=== PATIENT | female | born 1950 | race Caucasian/White ===

== ENCOUNTER 2022-07-03 15:05 | Outpatient (REF) | payer MEDICARE, SELFPAY ==
[2022-07-03 17:05] LABS: Free T4 (Free Thyroxine) 1.02 ng/dL (0.71-1.85); TSH reflex Free T4 0.89 uIU/mL (0.32-4.0)
[2022-07-05 09:49] LABS: Thyroid Peroxidase Antibodies <1 IU/mL (<9)
== END 2022-07-03 15:06 | disposition home or self-care (01) ==
LOC: HO.LAB 15:05
PROVIDERS: PCP Internal Medicine; Visit Provider Nurse Practitioner
DX: K59.04 Chronic idiopathic constipation (principal); E89.0 Postprocedural hypothyroidism; R60.0 Localized edema
CPT/HCPCS: 36415; 84439; 84443; 86376; 99202

== ENCOUNTER → 2022-08-02 13:43 | Outpatient (BNVA) | payer MEDICARE, SELFPAY | PROVIDERS: PCP Internal Medicine; Visit Provider Nurse Practitioner | DX: K59.04 Chronic idiopathic constipation (principal); K59.9 Functional intestinal disorder, unspecified; K21.9 Gastro-esophageal reflux disease without esophagitis | CPT/HCPCS: 99212 ==

== ENCOUNTER 2022-08-30 14:03 | Outpatient (REF) | payer MEDICARE, SELFPAY ==
[2022-08-30 15:51] LABS: Appearance Urine Clear; Color Urine Yellow; Glucose Urine UA Negative (Negative); Leukocyte Esterase Urine Negative (Negative); Nitrite Urine Negative (Negative); PH 5.5 (5.0-9.0); Specific Gravity - Urine 1.015 (1.005-1.025); Urine Blood Negative (Negative); Urine Ketones Negative (Negative); Urine Protein Negative (Neg-Trace)
== END 2022-08-30 14:04 | disposition home or self-care (01) ==
LOC: HO.LAB 14:03
PROVIDERS: PCP Internal Medicine; Referring Provider Internal Medicine; Visit Provider Nurse Practitioner
DX: K59.9 Functional intestinal disorder, unspecified (principal); K59.04 Chronic idiopathic constipation; K29.60 Other gastritis without bleeding; K21.9 Gastro-esophageal reflux disease without esophagitis; R35.0 Frequency of micturition
CPT/HCPCS: 81003; 99212

== ENCOUNTER 2022-09-13 09:49 | Outpatient (REF) | payer MEDICARE, SELFPAY ==
--- NOTE | ~2022-09-13 | FL_ITS ---
EXAMINATION: FL BARIUM SWALLOW CLINICAL INFORMATION: Chronic idiopathic constipation. Rule out abnormal peristalsis. COMPARISON: None TECHNIQUE: Barium swallow examination is performed using fluoroscopic evaluation in addition to multiple fluoroscopic spot views. The patient is imaged both upright and prone and using both thick and thin sulfate along with effervescent granules. Barium tablet was also administered. Fluoroscopy time: 0.8 minutes DAP: 5.9 Gycm2 Images: 54 FINDINGS: The swallowing mechanism is normal. No aspiration or penetration. There is deviation of the cervical esophagus in the neck to the left. This may be related to an enlarged thyroid gland. This esophageal motility is normal. There is a small sliding-type hiatal hernia. There is significant gastroesophageal reflux. No mass or stricture is seen. Barium tablet passed freely into the stomach. There are surgical clips in the left neck. FL/FL barium swallow IMPRESSION: Normal esophageal motility. Significant gastroesophageal reflux and small sliding-type hiatal hernia. The cervical esophagus is deviated to the left. This may be related to an enlarged thyroid gland. Clinical correlation recommended. This could be better evaluated with thyroid ultrasound.
== END 2022-09-13 09:50 | disposition home or self-care (01) ==
LOC: HO.XRAY 09:49
PROVIDERS: PCP Internal Medicine; Visit Provider Nurse Practitioner
DX: K59.04 Chronic idiopathic constipation (principal)
CPT/HCPCS: 74220

== ENCOUNTER → 2022-10-11 13:19 | Outpatient (BNVA) | payer MEDICARE, SELFPAY | PROVIDERS: PCP Internal Medicine; Visit Provider Nurse Practitioner | DX: K59.9 Functional intestinal disorder, unspecified (principal); K21.9 Gastro-esophageal reflux disease without esophagitis; R35.0 Frequency of micturition | CPT/HCPCS: 99212 ==

== ENCOUNTER → 2022-11-21 13:29 | Outpatient (BNVA) | payer MEDICARE, SELFPAY | PROVIDERS: PCP Internal Medicine; Visit Provider Nurse Practitioner | DX: K21.9 Gastro-esophageal reflux disease without esophagitis (principal); K59.04 Chronic idiopathic constipation; K59.9 Functional intestinal disorder, unspecified; N32.81 Overactive bladder; Z79.899 Other long term (current) drug therapy | CPT/HCPCS: 99212 ==

== ENCOUNTER → 2022-12-13 13:52 | Outpatient (BNVA) | payer MEDICARE, SELFPAY | PROVIDERS: PCP Internal Medicine; Visit Provider Nurse Practitioner | DX: K59.04 Chronic idiopathic constipation (principal); K21.9 Gastro-esophageal reflux disease without esophagitis; K29.60 Other gastritis without bleeding; K59.9 Functional intestinal disorder, unspecified | CPT/HCPCS: 99212 ==

== ENCOUNTER 2022-12-19 14:06 | Outpatient (REF) | payer MEDICARE, SELFPAY ==
--- NOTE | ~2022-12-19 | XR_ITS ---
EXAMINATION: XR ABDOMEN WITH DECUBITUS VIEWS CLINICAL INDICATION: Chronic idiopathic constipation COMPARISON: None available. TECHNIQUE: AP view of the chest, upright and supine AP views of the abdomen and pelvis FINDINGS: Chest x-ray demonstrates normal cardiomediastinal silhouette. Lung parenchyma is clear The bowel gas pattern is normal with no evidence of ileus or obstruction. No unusual soft tissue calcifications are noted. Status post left hip total arthroplasty XR/XR abdomen w decubitus IMPRESSION: Unremarkable examination.
== END 2022-12-19 14:07 | disposition home or self-care (01) ==
LOC: HO.XRAY 14:06
PROVIDERS: PCP Internal Medicine; Referring Provider Internal Medicine; Visit Provider Nurse Practitioner
DX: K59.04 Chronic idiopathic constipation (principal)
CPT/HCPCS: 74021; 99212

== ENCOUNTER → 2023-01-02 15:05 | Outpatient (BNVA) | payer MEDICARE, SELFPAY | PROVIDERS: PCP Internal Medicine; Visit Provider Nurse Practitioner | DX: K59.04 Chronic idiopathic constipation (principal); K21.9 Gastro-esophageal reflux disease without esophagitis; K29.60 Other gastritis without bleeding | CPT/HCPCS: 99212 ==

== ENCOUNTER → 2023-01-08 13:58 | Outpatient (BNVA) | payer MEDICARE, SELFPAY | PROVIDERS: PCP Internal Medicine; Visit Provider Orthopaedic Surgery ==

== ENCOUNTER → 2023-01-15 13:00 | Outpatient (BNVA) | payer MEDICARE, SELFPAY | PROVIDERS: PCP Internal Medicine; Visit Provider Orthopaedic Surgery | DX: M17.0 Bilateral primary osteoarthritis of knee (principal) | CPT/HCPCS: 20610; J7318 ==

== ENCOUNTER → 2023-01-17 13:04 | Outpatient (BNVA) | payer MEDICARE, SELFPAY | PROVIDERS: PCP Internal Medicine; Visit Provider Nurse Practitioner | DX: K59.04 Chronic idiopathic constipation (principal); K21.9 Gastro-esophageal reflux disease without esophagitis; K29.60 Other gastritis without bleeding | CPT/HCPCS: 99212 ==

== ENCOUNTER 2023-02-26 14:36 | Outpatient (AMB) | payer MEDICARE, SELFPAY ==
--- NOTE | 2023-02-26 14:47 | MHC.OFFVIS ---
Intake Vital Signs 02/26/23 15:13 Height 5 ft 6.5 in BP 127/70 Blood Pressure Location Rt brachial Position Sitting Pulse 77 Intake Visit Reasons: 3 week fu Intake Note: Patient returns to clinic today in follow up of constipation. CC: Patient reports the medication takes some work for her bowels to start moving and her hemorrhoids are starting to bleed. Pt states she would like to know if something can be added to help with her BMs. [employer] Operator Required: No Accompanied by: Self / Same As Patient Allergies cephalexin [From Keflex] Allergy (Verified 01/17/23 13:42) Rash bisacodyl [From Dulcolax (bisacodyl)] Adverse Reaction (Intermediate, Verified 01/17/23 13:42) Nausea HPI 3 week fu HPI Details Assessment & Plan (1) Chronic idiopathic constipation: ?Code(s): K59.04 - Chronic idiopathic constipation ?Plan: She is now moving her bowels, although not one and done as I would like. At times she even has looser stools. Xr not concerning I try to allay her fears that she will end up with a bad or will stretch her colon as there is absolutely no evidence that this is the case.? I really believe that this is a more of what she calls and obsessive-compulsive relief than rooted in fax.? She finds her belching is improved on reglan fortino overnight. We discuss possible future trial of LInzess starting low and increasing per her request, but she has a lot of atypical reactions, so I don't want to change now. She is taking the Amitiza 24mcg bid and senna 2 qhs and 1 qam. She has cut back her fiber a bit, and thats fine as this has improved her eczema.? She also continues on Colace and omeprazole 20 mg daily. ROV 3 weeks. (2) GERD (gastroesophageal reflux disease): ?Code(s): K21.9 - Gastro-esophageal reflux disease without esophagitis (3) Erosive gastritis: ?Code(s): K29.60 - Other gastritis without bleeding TODAY'S VISIT She is moving her bowels, but it is still hard to stimulate the BM to start and she still feels incomplete evacuation. Her hemorrhoids are starting to bleed and bother her, but she feels this is r/t her rubbing the anus to stimulate it and not hard stools. I think we will continue what we are doing and add bisacodyl supps (she had nausea r/t the pills, this will bypass this) and see if we can do better. She will take it after supper so that she can go to am [facility]. She is taking the Amitiza 24mcg bid and senna 2 qhs and 1 qam. She has cut back her fiber a bit, and thats fine as this has improved her eczema.? She also continues on Colace and omeprazole 20 mg daily. ROV 3 weeks. COUNT INCLUDES THE [facility] Surgical History H/O colonoscopy H/O esophagogastroduodenoscopy H/O partial thyroidectomy History of left hip replacement History of surgical removal of meniscus of knee Social History Alcohol intake: never Patient Tobacco Use Status: Never used Tobacco Current occupational status: retired Review of Systems Const Denies fatigue, Denies fever(s), Denies night sweats, Denies poor appetite and Denies weight loss ENT Reports Normal hearing present, Denies dental pain, Denies dysphagia, Denies hearing loss, Denies mouth pain, Denies odynophagia, Denies throat swelling, Denies tongue swelling and Reports other (Dentition adequate) Card Reports no additional complaints Resp Reports no additional complaints GI Denies abdominal pain, Denies melena, Denies bloating, Reports hematochezia, Reports constipation, Denies GI cramping, Denies dysphagia, Denies excessive flatus, Denies early satiety, Reports heartburn, Denies diarrhea, Denies nausea, Denies odynophagia, Denies vomiting and Denies hematemesis Skin/Breast Denies pruritus, Denies lesions, Denies rash and Denies jaundice Neuro Reports Normal hearing present and Denies Abnormal speech present Endo Denies fatigue Aller/Immun Denies throat swelling and Denies tongue swelling Physical Exam Vital Signs: Last Vital Signs Pulse 77 02/26/23 15:13 BP 127/70 02/26/23 15:13 Const General: cooperative, no acute distress, well developed and well groomed Nutritional Appearance: well nourished and overweight Orientation/consciousness: oriented to person, oriented to place and oriented to time Limitations: No language barrier HEENT Head: Yes normocephalic and Yes atraumatic Eyes General: appearance normal, both eyes and all related structures Pupils: Equal, round and reactive pupils present Neck Neck: Yes normal visual inspection and Yes no lymphadenopathy Thyroid: Thyroid normal Resp Effort & Inspection: normal respiratory effort and able to speak in complete sentences Auscultation: clear to auscultation bilaterally Cardio Rate: regular rate Rhythm: regular rhythm Heart sounds: Normal, physiologic split S2 sound present Peripheral pulses: radial pulses present and posterior tibial pulses present GI Inspection: No distended and No Abdominal panniculus present Palpation (GI): Soft to palpation, nontender, no guarding, not rigid and No hepatosplenomegaly present Percussion: Yes normal to percussion Auscultation: normal bowel sounds Rectal Exam - Female: deferred Skin General skin exam: no rashes or lesions noted, turgor normal, skin not dry, no jaundice, No spider nevi and no striae Rashes: no rashes Nails: normal Neuro General: oriented to person, oriented to place and oriented to time Cranial nerves: Yes Equal, round and reactive pupils present and Yes Normal hearing present Speech: No Abnormal speech present Extrem General: Yes normal to inspection, No clubbing, No cyanosis and No edema Psych Appearance: grossly normal and well kempt Mental Status: mental status grossly normal Speech and movement: Normal speech and movement present Affect: normal affect Attitude: cooperative Thought process: Normal thought process present and not confabulating Thought content: Normal thought content present Insight: Limited insight present (Psych) Judgement: Limited judgement present (Psych) Assessment & Plan Assessment & Plan (1) Chronic idiopathic constipation: Code(s): K59.04 - Chronic idiopathic constipation Plan: She is moving her bowels, but it is still hard to stimulate the BM to start and she still feels incomplete evacuation. Her hemorrhoids are starting to bleed and bother her, but she feels this is r/t her rubbing the anus to stimulate it and not hard stools. I think we will continue what we are doing and add bisacodyl supps (she had nausea r/t the pills, this will bypass this) and see if we can do better. She will take it after supper so that she can go to am [place]. She is taking the Amitiza 24mcg bid and senna 2 qhs and 1 qam. She has cut back her fiber a bit, and thats fine as this has improved her eczema.? She also continues on Colace and omeprazole 20 mg daily. ROV 3 weeks. (2) Small bowel motility disorder: Code(s): K59.9 - Functional intestinal disorder, unspecified (3) GERD (gastroesophageal reflux disease): Code(s): K21.9 - Gastro-esophageal reflux disease without esophagitis Medications: New bisacodyl 10 mg [place] DAILY 100 ea 3RF 30 days K59.04 - Chronic idiopathic constipation, K59.9 - Functional intestinal disorder, unspecified Coding Level of Care Code Est Pt Level 3 (36187) Diagnoses Chronic idiopathic constipation K59.04 Small bowel motility disorder K59.9 GERD (gastroesophageal reflux disease) K21.9
[2023-02-26 15:13] VITALS: BP 127/70; PULSE 77
== END 2023-02-26 15:59 | disposition home or self-care (01) ==
PROVIDERS: PCP Internal Medicine; Visit Provider Nurse Practitioner
DX: K59.04 Chronic idiopathic constipation (principal); K59.9 Functional intestinal disorder, unspecified; K21.9 Gastro-esophageal reflux disease without esophagitis
CPT/HCPCS: 99213

== ENCOUNTER → 2023-02-26 14:36 | Outpatient (BNVA) | payer MEDICARE, SELFPAY | PROVIDERS: PCP Internal Medicine; Visit Provider Nurse Practitioner | DX: K59.04 Chronic idiopathic constipation (principal); K59.9 Functional intestinal disorder, unspecified; K21.9 Gastro-esophageal reflux disease without esophagitis | CPT/HCPCS: 99212 ==

== ENCOUNTER 2023-03-02 12:04 | Emergency (ER) | payer MEDICARE, SELFPAY ==
--- NOTE | ~2023-03-02 | XR_ITS ---
EXAMINATION: XR ABDOMEN COMPLETE CLINICAL INDICATION: Rule out obstruction COMPARISON: Previous x-ray November 2022 TECHNIQUE: 2 views of the abdomen. FINDINGS: Nonspecific bowel gas pattern with air-fluid levels in nondilated bowel. This probably represents an ileus. No evidence of free air. No calcifications. Degenerative changes of the lower lumbar spine and right hip joint. Left hip replacement. XR/XR abdomen min 2V IMPRESSION: Nonspecific bowel gas pattern with air-fluid levels in nondilated bowel. This probably represents an ileus.
--- NOTE | 2023-03-02 12:35 | ED_ITS ---
HPI - General Adult General Chief complaint: General Medical Stated complaint: sent from a Dr ? Time Seen by Provider: 03/02/23 14:02 Source: patient and old records reviewed Mode of arrival: ambulatory Limitations: no limitations History of Present Illness HPI narrative: 73 yo female with history of GERD, gastritis, chronic constipation, small bowel motility disorder, hypothyroidism, HLD and anxiety who presents to the ER for administration of an enema along with a KUB due to 2 months of ongoing constipation issues. Dr. Caraballo referred patient to the ER. She has been on senna, dulcolax, reglan, Amitiza. She is having bowel movements but they are small and she does not feel like they are complete. She is supposed to start a GoLytely prep to clear out the colon per GI recs. She was told to be NPO for this so has not eaten in 2 days. She denies any vomiting, fever, chills, urinary symptoms MD complaint: constipation Onset (ago): month(s) Location: abdomen Radiation: non-radiation Quality: aching Pain Consistency: intermittent Relieving factors: none Exacerbating factors: none Associated symptoms: denies other symptoms Treatments prior to arrival: none Related Data Home Medications Medication Instructions Recorded Confirmed venlafaxine 150 mg 150 mg PO DAILY 07/03/22 01/15/23 capsule,extended release 24 hr clonazepam 0.5 mg tablet 0.5 mg PO BID PRN 08/02/22 01/15/23 oxybutynin chloride 5 mg 5 mg PO DAILY PRN 01/17/23 tablet,extended release 24 hr (Ditropan XL) Previous Rx's Medication Instructions Recorded omeprazole 20 mg capsule,delayed 20 mg PO DAILY #30 caps 10/11/22 release docusate sodium 100 mg capsule 100 mg PO .DAILY WITH FOOD 30 days 10/12/22 (Colace) #30 caps lubiprostone 24 mcg capsule 24 mcg PO BID 30 days #60 caps 12/19/22 (Amitiza) metoclopramide HCl 10 mg tablet 10 mg PO QIDACHS #120 tabs 12/19/22 (Reglan) sennosides 8.6 mg tablet (Senna 17.2 mg PO BID 30 days #120 tabs 01/02/23 Laxative) bisacodyl 10 mg rectal suppository 10 mg TN DAILY 30 days #100 ea 02/26/23 bisacodyl 5 mg tablet,delayed 10 mg PO ONCE 2 days #4 tabs 03/02/23 release (Dulcolax (bisacodyl)) lactulose 10 gram/15 mL oral 20 g (30 mL) PO BID PRN 03/02/23 solution constipation #237 mL polyethylene glycol 3350 17 17 g PO DAILY 1 day #238 grams 03/02/23 gram/dose oral powder (Miralax) Allergies Allergy/AdvReac Type Severity Reaction Status Date / Time cephalexin [From Keflex] Allergy Rash Verified 03/02/23 12:36 doxycycline Allergy Unknown Verified 03/02/23 12:41 levofloxacin [From Levaquin] Allergy Unknown Verified 03/02/23 12:41 bisacodyl AdvReac Intermediate Nausea Verified 03/02/23 12:36 [From Dulcolax (bisacodyl)] Review of Systems Review of Systems: Yes all other systems are reviewed and are negative REPLACED BY [facility] Past Medical History Surgical History H/O colonoscopy H/O esophagogastroduodenoscopy H/O partial thyroidectomy History of left hip replacement History of surgical removal of meniscus of knee Social History Social History Alcohol intake: never Patient Tobacco Use Status: Never used Tobacco Smoked in Last 30 Days: No Use of substances other than those prescribed or required for medical reasons: No Advance Directives: No Advance Directives Information Provided: Yes Current occupational status: retired Physical Exam ED Vital Signs: Vital Signs - 24 hr 03/02/23 12:36 03/02/23 16:19 Temperature 98.6 F 99.0 F Pulse Rate 92 86 Respiratory Rate 16 Blood Pressure 127/79 143/79 H Pulse Oximetry 96 97 Oxygen Delivery Method Room Air Room Air BMI result Body Mass Index 28.2 Appearance: Alert. Oriented X3. No acute distress. Head: normocephalic, atraumatic. Eyes: Pupils equal, round and reactive to light. ENT: Pharynx normal. No tonsillar swelling or exudate. Neck: Normal inspection. Neck supple. CVS: Normal heart rate and rhythm. Pulses normal. Respiratory: No respiratory distress. Breath sounds normal. Abdomen: Soft and nontender. +BS x4 Skin: Skin warm and dry. Normal skin color. Normal skin turgor. No rashes. Extremities: No lower extremity edema. No joint swelling. Neuro/psych: Oriented X 3. No motor deficit. No sensory deficit. CN II-XII intact. Normal speech and cognition. Course Course Course Narrative: 73 year old female presents for evaluation of constipation. Patient reports a history of constipation. She reports feeling constipated for the last 2 months. She was able to have a very small bowel movement in the waiting room but reports that it was ?all water. ? Her primary doctor, Dr. Caraballo called and recommended ?a three view abdominal series x-ray to rule out obstruction, Fleet enema and large volume tap water enema. Patient is well-appearing. Plan to start with x-ray Medications Administered Discontinued Medications Generic Name Dose Route Start Last Admin Trade Name Freq PRN Reason Stop Dose Admin Polyethylene Glycol 17 gm 03/02/23 14:02 03/02/23 14:15 Polyethylene Glycol 3350 17 Gm Powd.Pack PO 03/02/23 14:03 17 gm ONCE ONE Administration Sodium Biphosphate/Sodium Phosphate 133 ml 03/02/23 14:02 03/02/23 14:15 Sodium Phosphate,Hoke-Dibasic 133 Ml Enema TN 03/02/23 14:03 133 ml ONCE ONE Administration Medical Decision Making Medical Decision Making MDM Narrative: 73 yo female with history of GERD, gastritis, chronic constipation, small bowel motility disorder, hypothyroidism, HLD and anxiety who presents to the ER for administration of an enema along with a KUB due to 2 months of ongoing constipation issues. Abd soft, nontender with normal active bowel sounds. KUB today with nonspecific bowel gas pattern w/ air fluid levels in nondilated bowel. possible ileus. Patient was given fleet and soap suds enema with good effect. No N/V abdominal pain or distention. stable to go home w/ plan for golyetly PRN and f/u with GI Differential Diagnosis Differential Diagnoses: The differential diagnosis associated with the presentation includes acute on chronic constipation, obstipation, ileus, [place], doubt SBO Admission/Observation Consideration of admission/observation: Escalation of care including admission/observation considered 73 yo female presenting with ileus, considered admission but she is moving her bowels. Independent Interpretation I performed an independent interpretation of an: Plain X-Ray Interpretation: air fluid levels apprecaited, no dilatation, agree w/ radiology read Radiology Impression Discussion of test interpretation with radiology: I have reviewed the radiologist's reading. Radiologist Impression: CLINICAL INDICATION: Rule out obstruction COMPARISON: Previous x-ray November 2022 TECHNIQUE: 2 views of the abdomen. FINDINGS: Nonspecific bowel gas pattern with air-fluid levels in nondilated bowel. This probably represents an ileus. No evidence of free air. No calcifications. Degenerative changes of the lower lumbar spine and right hip joint. Left hip replacement. XR/XR abdomen min 2V IMPRESSION: Nonspecific bowel gas pattern with air-fluid levels in nondilated bowel. This probably represents an ileus. External Record Review External record reviewed: Office record, Outpatient record, Prior outpatient labs and Prior outpatient radiology Tests considered The following testing was considered but not selected: CT scan considered but clinically not SBO Prescription Management I considered prescription management with: Other (laxatives) Chronic Conditions Patient?s care impacted by: Other (constipation, anxiety) Critical Care Time Critical Care Time Critical Care Time: No Discharge Plan Discharge Clinical Impression: Chronic constipation Patient Disposition: Home, Self-Care Instructions: Constipation (DC) Additional Instructions: your abdominal x-ray was unremarkable take the prescribed laxative as needed continue your previous laxative regimen follow up with your GI doctor If you develop new or worsening symptoms call 911 or come back to the ER for further evaluation. Prescriptions: New lactulose 10 gram/15 mL solution 20 g PO BID PRN (Reason: constipation) Qty: 237 0RF No Action docusate sodium [Colace] 100 mg capsule 100 mg PO .DAILY WITH FOOD 30 Days Qty: 30 6RF sennosides [Senna Laxative] 8.6 mg tablet 17.2 mg PO BID 30 Days Qty: 120 6RF bisacodyl [Dulcolax (bisacodyl)] 5 mg tablet,delayed release (DR/EC) 10 mg PO ONCE 2 Days Qty: 4 0RF Rx Instructions: Take 2 tablets at 10 am for severe constipation polyethylene glycol 3350 [Miralax] 17 gram/dose powder 17 g PO DAILY 1 Days Qty: 238 0RF Rx Instructions: Mix Miralax with 64 oz(8 cups) of Crystal light. Take 2 tablets of Dulcolax qt 10 am. Start drinking Miralax at 12 pm. Drink a glass of Miralax every 20 to 30 minutes until you are finished. You will drink at least another 4 cups of clear liquid of your choice over the next 2 hours. Please drink as many clear liquids as possible venlafaxine 150 mg capsule,extended release 24hr 150 mg PO DAILY clonazepam 0.5 mg tablet 0.5 mg PO BID PRN omeprazole 20 mg capsule,delayed release(DR/EC) 20 mg PO DAILY Qty: 30 6RF lubiprostone [Amitiza] 24 mcg capsule 24 mcg PO BID 30 Days Qty: 60 3RF Rx Instructions: please do a full 30 day fill metoclopramide HCl [Reglan] 10 mg tablet 10 mg PO QIDACHS Qty: 120 6RF oxybutynin chloride [Ditropan XL] 5 mg tablet extended release 24hr 5 mg PO DAILY PRN bisacodyl 10 mg suppository 10 mg TN DAILY 30 Days Qty: 100 3RF [place]: [facility] [place] Group] Interventions: ED Discharge Assessment Last Done: 03/02/23 16:04 Discharge Date/Time: 03/02/23 16:19
[2023-03-02 12:36] VITALS: BP 127/79; PULSE 92; RESP 16; TEMP 37; O2SAT 96; BMI 28.2
[2023-03-02] MEDS: Sodium Phosphate,Mono-Dibasic 133 ML ENEMA PR (14:15)
[2023-03-02] MEDS: polyethylene glycoL 3350 17 GM POWD.PACK PO (14:15)
--- NOTE | 2023-03-02 15:46 | PC.NURSE ---
pt given enemas by Geraldine ASHLEY/tuan RN together in room. s/p enemas pt have liquid brown TARUN Valdes notified. pt denied cramping or abdominal pain. no distress. calm, cooperative. OOB to bedside commode
[2023-03-02 16:19] VITALS: BP 143/79; PULSE 86; TEMP 37.2; O2SAT 97
== END 2023-03-02 16:19 | disposition home or self-care (01) ==
PROVIDERS: Emergency Provider Emergency Medicine Emergency Medical Services
DX: K59.09 Other constipation (principal); E03.9 Hypothyroidism, unspecified; E78.5 Hyperlipidemia, unspecified; Z79.899 Other long term (current) drug therapy
CPT/HCPCS: 74019; 99283; 99284

== ENCOUNTER 2023-03-13 14:00 | Outpatient (AMB) | payer MEDICARE, SELFPAY ==
[2023-03-13 14:22] VITALS: BP 119/65; PULSE 86; O2SAT 95; BMI 27.5
--- NOTE | 2023-03-13 14:22 | A.OFFVIS_ITS ---
Intake Vital Signs 03/13/23 14:22 Height 5 ft 6 in Weight 170 lb 10.205 oz BMI 27.5 BP 119/65 Blood Pressure Location Lt brachial Position Sitting Pulse 86 Pulse Source Pulse Oximeter Pulse Oximetry (%) 95 Oxygen Delivery Method Room Air Intake Visit Reasons: Constipation follow up Intake Note: Pt presents to the office today for a constipation follow up. Pt states her friend said to do magnesium salt feet soaks and it is helping the constipation as of now. She states the lactulose is also helping but she can only take that with clonazepam in order to be able to sleep. She states she is hoping her body will regulate so she wont have to take the clonazepam. Allergies cephalexin [From Keflex] Allergy (Verified 03/13/23 14:26) Rash doxycycline Allergy (Verified 03/13/23 14:26) Unknown levofloxacin [From Levaquin] Allergy (Verified 03/13/23 14:26) Unknown bisacodyl [From Dulcolax (bisacodyl)] Adverse Reaction (Intermediate, Verified 03/13/23 14:26) Nausea HPI HPI Comments History of Present Illness Details 73 y.o F with PMH of GERD, who is here for second opinion for constipation. Pt previously established with Atnonietta Cantor NP. Pt reports having constipation x 25 years. Describes this as 3 small bowel movements per week. Has to strain, splint and digitalise to have a BM. However the BM itself is watery. Her main concern is that the bowel movement is too scant and too infrequent, not the consistency of the stool. No abd pain with this. Weight curve stable. Last colo 2012 per previous documentation. Currently: Metoclopramide Senna Lubiprostone Lactulose Dulcolax supp Also reports significant bloating with this. Has never tried miralax. Her main worry is the fear of developing blockage of the intestine if she doesn't go regularly. Of note, none of the XR KUBs so far have showed severe fecal loading to correlate with her clinical sx. Diet typically consists of breakfast sandwich/muffins, hot dogs, pasta. Takes 1 portion salad. Not on fiber supplement. [place] [facility] [place] [place] PFSH Surgical History H/O colonoscopy H/O esophagogastroduodenoscopy H/O partial thyroidectomy History of left hip replacement History of surgical removal of meniscus of knee Social History Alcohol intake: never Patient Tobacco Use Status: Never used Tobacco Current occupational status: retired Review of Systems Const All systems reviewed & are unremarkable except as noted in HPI and below Physical Exam Vital Signs: Last Vital Signs Pulse 86 03/13/23 14:22 BP 119/65 03/13/23 14:22 Pulse Ox 95 03/13/23 14:22 Oxygen Delivery Method Room Air 03/13/23 14:22 BMI result Body Mass Index 27.5 Gen appear: NAD HEENT: nonicteric, no cervical lymphadenopathy Chest: CTA CVS: Regular S1/S2 Abd: soft, nontender, nondistended, bowel sounds + Ext: no peripheral edema Neuro: A/Ox3, noted to move all extremities spontaneously Psych: interacting appropriately Assessment & Plan Assessment & Plan (1) Chronic idiopathic constipation: Code(s): K59.04 - Chronic idiopathic constipation (2) Anxiety: Code(s): F41.9 - Anxiety disorder, unspecified Plan Reviewed with the pt that main issue appears to be a subjective sensation of incomplete evacuation and retention of stool as opposed to true constipation based on imaging so far and her own report of empty rectal vault whenever she has attempted suppositories. Would recommend bulking agent such as fiber to aid with the consistency of the stool as well as decrease in stimulant laxatives (currently on senna and bisacodyl both). Would also advise switching lactulose to miralax for osmotic laxative as lactulose is likely worsening the bloating and distention. Will obtain further investigation to r/o anatomic/outlet obstruction. Defecography ordered. Depending on results, may need anorectal manometry with balloon expulsion to r/o dyssenergia. Due for colo for CRC screening - discussion deferred today. Pt is looking forward to return for her care to [facility] once evaluation has been completed. Follow up in 4 weeks. Patient Instructions: 1. Discontinue Lactulose 2. Take either Senna or Bisacodyl, not both 3. Take fiber in moderation 4. Take Amitiza as prescribed 5. Take miralax daily 6. Ensure 8-10 cups of fluids every day Coding Level of Care Code Est Pt Level 4 (37757) Diagnoses Chronic idiopathic constipation K59.04 Anxiety F41.9
== END 2023-03-13 15:08 | disposition home or self-care (01) ==
PROVIDERS: PCP Internal Medicine; Visit Provider Internal Medicine
DX: K59.04 Chronic idiopathic constipation (principal); F41.9 Anxiety disorder, unspecified
CPT/HCPCS: 99214

== ENCOUNTER → 2023-03-13 14:00 | Outpatient (BNVA) | payer MEDICARE, SELFPAY | PROVIDERS: Visit Provider Internal Medicine | DX: K59.04 Chronic idiopathic constipation (principal); F41.9 Anxiety disorder, unspecified | CPT/HCPCS: 99212 ==

== ENCOUNTER 2023-04-10 13:30 | Outpatient (AMB) | payer MEDICARE, SELFPAY ==
[2023-04-10 13:46] VITALS: BP 122/78; PULSE 85; BMI 27.4
--- NOTE | 2023-04-10 13:46 | MHC.OFFVIS ---
Intake Vital Signs 04/10/23 13:46 Height 5 ft 6 in Weight 170 lb BMI 27.4 BP 122/78 Blood Pressure Location Lt brachial Position Sitting Pulse 85 Intake Visit Reasons: 4 week follow up - XR Defecography Intake Note: Tammi presents in the office as a 4 week follow up. CC: She states that she was having constipation. She seen Antonietta Cantor - the senna and Amitiza worked for a short time and then it stops. She states that medication seems to work for her and then it will stop working. No pains in the abdomen. She does have hemorrhoids. She called because she had gone 1 week with no BM. She was given a half a gallon of prep and it did not work for her. She was told to stay on the suppository and the Amitiza by Kenny and drink 8-10 glasses of water and increase fiber intake. She said that she made up a regimen for herself and she was given a prebiotic jeane [place] tummy fiber She is nervouce because it seems to be working at the time being but she states that it may stop because she is used to that occurring. When she did the XR Defecogram - she did the 2 fleet enemas 2 hrs prior but she did not have a BM. If she is going to have a BM she has to stimulate her colon by wiping. -- She also does a feet bath of magnesium crystals that also has been helping. Etl Informatica Architect Required: No Allergies cephalexin [From Keflex] Allergy (Verified 04/10/23 13:46) Rash doxycycline Allergy (Verified 04/10/23 13:46) Unknown levofloxacin [From Levaquin] Allergy (Verified 04/10/23 13:46) Unknown bisacodyl [From Dulcolax (bisacodyl)] Adverse Reaction (Intermediate, Verified 04/10/23 13:46) Nausea HPI HPI Comments History of Present Illness Details 73 y.o F with PMH of GERD, who is here for second opinion for constipation. 03/13/23: Pt previously established with Antonietta Cantor [employer] ARCHITECT. Pt reports having constipation x 25 years. Describes this as 3 small bowel movements per week. Has to strain, splint and digitalise to have a BM. However the BM itself is watery. Her main concern is that the bowel movement is too scant and too infrequent, not the consistency of the stool. No abd pain with this. Weight curve stable. Last colo 2012 per previous documentation. Currently: Metoclopramide Senna Lubiprostone Lactulose Dulcolax supp Also reports significant bloating with this. Has never tried miralax. Her main worry is the fear of developing blockage of the intestine if she doesn't go regularly. Of note, none of the XR KUBs so far have showed severe fecal loading to correlate with her clinical sx. Diet typically consists of breakfast sandwich/muffins, hot dogs, pasta. Takes 1 portion salad. Not on fiber supplement. XR defecography ordered through [facility] and pending (formerly [facility] for Mar). 04/10/23: Had defecography done through [facility] that shows rectocele. She was also noted to have a descent of ARJ >3 cm below the ischial tuberosities. Anorectal angles reviewed and pt had a paradoxical DECREASE in her angle on squeezing (110 --> 107). Bowel regimen reviewed and pt had stopped BOTH the stimulant laxatives i.e senna and bisacodyl instead of taking one or the other. Instead she has started jeane sen[place] supplement (label says for use for IBS C or D). Current meds: Oral jeane senegal Amitiza 24 mcg BID Dulcolax supp in AM Miralax once daily With this regimen she is going once a day however continues to feel that has to rely on rectal stimulation to actually initiate defecation and more often than not has a sensation of incomplete evacuation. [facility] Surgical History History of left hip replacement History of surgical removal of meniscus of knee H/O partial thyroidectomy H/O esophagogastroduodenoscopy H/O colonoscopy Social History Alcohol intake: never Patient Tobacco Use Status: Never used Tobacco Current occupational status: retired Review of Systems Const All systems reviewed & are unremarkable except as noted in HPI and below Physical Exam Vital Signs: Last Vital Signs Pulse 85 04/10/23 13:46 BP 122/78 04/10/23 13:46 BMI result Body Mass Index 27.4 Gen appear: NAD HEENT: nonicteric, no cervical lymphadenopathy Chest: CTA CVS: Regular S1/S2 Abd: soft, nontender, nondistended, bowel sounds + Ext: no peripheral edema Neuro: A/Ox3, noted to move all extremities spontaneously Psych: interacting appropriately Assessment & Plan Assessment & Plan (1) Chronic idiopathic constipation: Code(s): K59.04 - Chronic idiopathic constipation (2) Anxiety: Code(s): F41.9 - Anxiety disorder, unspecified Plan Defecography highly suggestive of pelvic floor dyssynergia as well as rectocele (albeit it does empty completely). Pt also reports hx of nocturia which at one point used to be 4-5 times per night with frequent urinary incontinence but now reduced to 2-3 times a night. We also reviewed possibility of rectal hyposensitivity which may be leading to suboptimal urge to defecate however pt would like to defer ARMS/BET for now and would like to get evaluated for pelvic floor prolapse with dyssynergia first. Plan: - Referral placed to pelvic floor PT - UroGYN referral requested - Since she responds minimal response with amitiza 24 BID, will switch to motegrity if covered by insurance - Due for colo for CRC screening - discussion deferred today. Follow up in 6 weeks Orders: Referrals Urogynecology Referral N81.6 - Rectocele, R35.1 - Nocturia Pelvic Compliance And Control Analyst Referral N81.6 - Rectocele Medications: New prucalopride (Motegrity) 2 mg (2 x 1 mg) PO DAILY 90 days 180 tabs 0RF Patient Instructions: - Based on defecography, you were noted to have a rectocele. You are being referred to pelvic floor therapist as well as UroGYN. - Switch amitiza to motegrity - Follow up in 6 weeks Coding Level of Care Code Est Pt Level 4 (67386) Diagnoses Chronic idiopathic constipation K59.04 Anxiety F41.9
== END 2023-04-10 14:35 | disposition home or self-care (01) ==
PROVIDERS: PCP Internal Medicine; Visit Provider Internal Medicine
DX: K59.04 Chronic idiopathic constipation (principal); F41.9 Anxiety disorder, unspecified
CPT/HCPCS: 99214

== ENCOUNTER → 2023-04-10 13:30 | Outpatient (BNVA) | payer MEDICARE, SELFPAY | PROVIDERS: PCP Internal Medicine; Visit Provider Internal Medicine | DX: K59.04 Chronic idiopathic constipation (principal); F41.9 Anxiety disorder, unspecified | CPT/HCPCS: 99212 ==

== ENCOUNTER 2023-05-22 13:31 | Outpatient (AMB) | payer MEDICARE, SELFPAY ==
--- NOTE | 2023-05-22 13:40 | MHC.OFFVIS ---
Intake Vital Signs 05/22/23 13:41 Height 5 ft 6 in Weight 170 lb BMI 27.4 BP 113/68 Blood Pressure Location Lt brachial Position Sitting Pulse 81 Intake Visit Reasons: 6 week follow up Intake Note: Tammi presents in the office as a 6 month follow up. CC: She states that she is feeling okay today. She states that all the stuff that she was taking was not working but she takes dulcolax and probiotic and it seems to be working fine. Ekg Monitor Tech Required: No Allergies cephalexin [From Keflex] Allergy (Verified 05/22/23 13:44) Rash doxycycline Allergy (Verified 05/22/23 13:44) Unknown levofloxacin [From Levaquin] Allergy (Verified 05/22/23 13:44) Unknown bisacodyl [From Dulcolax (bisacodyl)] Adverse Reaction (Intermediate, Verified 05/22/23 13:44) Nausea HPI HPI Comments History of Present Illness Details 73 y.o F with PMH of GERD, who is here for second opinion for constipation. 03/13/23: Pt previously established with Antonietta Cantor NP. Pt reports having constipation x 25 years. Describes this as 3 small bowel movements per week. Has to strain, splint and digitalise to have a BM. However the BM itself is watery. Her main concern is that the bowel movement is too scant and too infrequent, not the consistency of the stool. No abd pain with this. Weight curve stable. Last colo 2012 per previous documentation. Currently: Metoclopramide Senna Lubiprostone Lactulose Dulcolax supp Also reports significant bloating with this. Has never tried miralax. Her main worry is the fear of developing blockage of the intestine if she doesn't go regularly. Of note, none of the XR KUBs so far have showed severe fecal loading to correlate with her clinical sx. Diet typically consists of breakfast sandwich/muffins, hot dogs, pasta. Takes 1 portion salad. Not on fiber supplement. XR defecography ordered through [facility] and pending ([facility] for Mar). 04/10/23: Had defecography done through [facility] that shows rectocele. She was also noted to have a descent of ARJ >3 cm below the ischial tuberosities. Anorectal angles reviewed and pt had a paradoxical DECREASE in her angle on squeezing (110 --> 107). Bowel regimen reviewed and pt had stopped BOTH the stimulant laxatives i.e senna and bisacodyl instead of taking one or the other. Instead she has started jeane senegal supplement (label says for use for IBS C or D). Current meds: Oral jeane senegal Amitiza 24 mcg BID Dulcolax supp in AM Miralax once daily With this regimen she is going once a day however continues to feel that has to rely on rectal stimulation to actually initiate defecation and more often than not has a sensation of incomplete evacuation. 05/22/23: Here for follow up as per her preference. Reports having daily BMs with fiber and daily bisacodyl. Had stopped amitiza as did not think was helping her, prucalopride not covered by insurance and pt reluctant to try linzess again. She also stopped taking miralax. Of note, previously had discussed discontinuing reglana and at last visit confirmed was NOT taking reglan, but reports taking reglan 10 TID today. Has not been doing drug holiday with this also without any QTc monitoring or EKG in the system. Pt also did not recall being referred to UroGYN last time, despite written instructions handed to the pt. She did hear back from [facility] and was told they are unable to take new pts for pelvic floor PT until next Spring. Current meds: Oral jeane sen[place] Dulcolax supp in AM [facility] Surgical History History of left hip replacement History of surgical removal of meniscus of knee H/O partial thyroidectomy H/O esophagogastroduodenoscopy H/O colonoscopy Social History Alcohol intake: never Patient Tobacco Use Status: Never used Tobacco Current occupational status: retired Review of Systems Const All systems reviewed & are unremarkable except as noted in HPI and below Physical Exam Vital Signs: Last Vital Signs Pulse 81 05/22/23 13:41 BP 113/68 05/22/23 13:41 BMI result Body Mass Index 27.4 Gen appear: NAD HEENT: nonicteric, no cervical lymphadenopathy Chest: CTA CVS: Regular S1/S2 Abd: soft, nontender, nondistended, bowel sounds + Ext: no peripheral edema Neuro: A/Ox3, noted to move all extremities spontaneously Psych: interacting appropriately Assessment & Plan Assessment & Plan (1) Chronic idiopathic constipation: Code(s): K59.04 - Chronic idiopathic constipation (2) Anxiety: Code(s): F41.9 - Anxiety disorder, unspecified (3) Pelvic floor dysfunction: Code(s): M62.89 - Other specified disorders of muscle (4) Rectocele: Code(s): N81.6 - Rectocele Plan From previous visit: Defecography highly suggestive of pelvic floor dyssynergia as well as rectocele (albeit it does empty completely). Pt also reports hx of nocturia which at one point used to be 4-5 times per night with frequent urinary incontinence but now reduced to 2-3 times a night. We also reviewed possibility of rectal hyposensitivity which may be leading to suboptimal urge to defecate however pt would like to defer ARMS/BET for now and would like to get evaluated for pelvic floor prolapse with dyssynergia first. Reviewed that would not endorse alf use of a stimulant laxative and would instead advise miralax daily with bisacodyl PRN. She was also reminded to taper off reglan as currently reports taking it for bloating and burping . Discussed that would recommend use of alternative therapy including avoidance of food triggers and taking simethicone as needed for symptomatic relief. In terms of dyssynergic defecation, again discussed that ideally would need ARMS to complement clinical findings but pt would like to hold off for now. No openings at [facility] but pt willing to see out of network therapist for a one-time consultation. Plan: - Referral placed to pelvic floor PT at [facility] - Will follow up on UroGYN referral requested through [facility] - Resume miralax and titrate to effect - Cont fiber supplementation - Use bisacodyl only as needed - Taper off reglan - She is also due for CRC screening. Given previous poor preps, discussed 1.5 day of CLD and 6000ml of golytely prep - written instructions as below handed to the pt Follow up in 8 weeks/after colo, whichever is sooner. Pt aware that she will be seeing Antonietta Cantor (who she has a good rapport with) Medications: New peg 3350-electrolytes 236-22.74-6.74 -5.86 gram (Golytely) Take 2000ml 2 days before the procedure, 2000ml the evening before and 2000ml the day of 6h before the procedure 240 mL PO Q10M 6,000 mL 0RF colonoscopy simethicone (Gas Relief (simethicone)) 125 mg PO BID-QID PRN 60 caps 0RF abdominal distention Discontinued prucalopride (Motegrity) Discontinued Reason: Doctor's Order 2 mg (2 x 1 mg) PO DAILY 90 days 180 tabs 0RF lubiprostone (Amitiza) please do a full 30 day fill Discontinued Reason: Patient no longer taking 24 mcg PO BID 30 days 60 caps 3RF K59.04 - Chronic idiopathic constipation metoclopramide HCl (Reglan) Discontinued Reason: Patient no longer taking 10 mg PO QIDACHS 120 tabs 6RF Patient Instructions: - Based on defecography, you were noted to have a rectocele and pelvic floor dysfunction. You are being referred to pelvic floor therapist as well as UroGYN. - You are also being scheduled for a screening colonoscopy. Please follow modified directions for the prep as discussed i.e: - Clear liquid diet for 1.5 days - Take 2000ml of golytely 2 days before the procedure - Take another 2000ml of golytely 1 day before the procedure, in the evening - Take the final 2000ml of golytely the morning of the procedure, 6h before - You can pear picker simethicone over the counter for belching/bloating relief. Coding Level of Care Code Est Pt Level 4 (27716) Diagnoses Chronic idiopathic constipation K59.04 Anxiety F41.9 Pelvic floor dysfunction M62.89 Rectocele N81.6
[2023-05-22 13:41] VITALS: BP 113/68; PULSE 81; BMI 27.4
== END 2023-05-22 14:32 | disposition home or self-care (01) ==
PROVIDERS: PCP Internal Medicine; Visit Provider Internal Medicine
DX: K59.04 Chronic idiopathic constipation (principal); F41.9 Anxiety disorder, unspecified; M62.89 Other specified disorders of muscle; N81.6 Rectocele
CPT/HCPCS: 99214

== ENCOUNTER → 2023-05-22 13:31 | Outpatient (BNVA) | payer MEDICARE, SELFPAY | PROVIDERS: PCP Internal Medicine; Visit Provider Internal Medicine | DX: K59.04 Chronic idiopathic constipation (principal); M62.89 Other specified disorders of muscle; N81.6 Rectocele; F41.9 Anxiety disorder, unspecified | CPT/HCPCS: 99212 ==

== ENCOUNTER 2023-09-13 13:07 | Outpatient (AMB) | payer MEDICARE, SELFPAY ==
[2023-09-13 13:09] VITALS: BP 123/71; PULSE 86; BMI 28.0
--- NOTE | 2023-09-13 13:09 | A.OFFVIS_ITS ---
Intake Vital Signs 09/13/23 13:09 Height 5 ft 6 in Weight 173 lb 11.588 oz BMI 28.0 BP 123/71 Blood Pressure Location Lt brachial Position Sitting Pulse 86 Intake Visit Reasons: 8 week follow up - seen Kenny marquezoctober Intake Note: Patient here for 8wk f/u constipation. Patient reports improvement with txt rx's. 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 Noonan IS LAST NOTE Plan From previous visit: Defecography highly suggestive of pelvic floor dyssynergia as well as rectocele (albeit it does empty completely). Pt also reports hx of nocturia which at one point used to be 4-5 times per night with frequent urinary incontinence but now reduced to 2-3 times a night. We also reviewed possibility of rectal hyposensitivity which may be leading to suboptimal urge to defecate however pt would like to defer ARMS/BET for now and would like to get evaluated for pelvic floor prolapse with dyssynergia first. 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 She was also reminded to taper off reglan as currently reports taking it for bloating and burping . Discussed that would recommend use of alternative therapy including avoidance of food triggers and taking simethicone as needed for symptomatic relief. In terms of dyssynergic defecation, again discussed that ideally would need ARMS to complement clinical findings but pt would like to hold off for now. No openings at [facility] but pt willing to see out of network therapist for a one-time consultation. Plan: - Referral placed to pelvic floor PT at [facility] - Will follow up on UroGYN referral requ ested through [facility] - Resume miralax and titrate to effect - Cont fiber supplementation - Use bisacodyl only as needed - Taper off reglan - She is also due for CRC screening. Giv en previous poor preps, discussed 1.5 day of CLD and 6000ml of golytely prep - written instructions as below handed to the pt Follow up in 8 weeks/after colo, whichever is sooner. Pt aware that she will be seeing Antonietta Cantor (who she has a good rapport with) Medications: New peg 3350-electroly matthew 236-22.74-6.74 -5.86 gram (Golyt sangeeta) Take 2000m l 2 days before th e procedure, 2000m l the evening befo re and 2000ml the day of 6h before t he procedure 240 mL PO Q10M 6, 000 mL 0RF colonos copy simethicone (Gas R elief (simethicone )) 125 mg PO BID-QID PRN 60 caps 0RF a bdominal distentio n Discontinued prucalopride (Mote grity) Disconti nued Reason: Doct or's Order 2 mg (2 x 1 mg) PO DAILY 90 days 180 tabs 0RF lubiprostone (Artemio keke) please do a full 30 day fill Discontinued R earnest: Patient no longer taking 24 mcg PO BID 30 days 60 caps 3RF K59.04 - Chronic i diopathic constipa tion metoclopramide HCl (Reglan) Disco ntinued Reason: P atient no longer t aking 10 mg PO QIDACHS 120 tabs 6RF Patient Instructions: - Based on defecography, you were noted to have a rectocele and pelvic floor dysfunction. You are being referred to pelvic floor therapist as well as UroGYN. - You are also being scheduled for a scr eening colonoscopy. Please follow modified directions for the prep as discussed i.e: - Clear liquid diet for 1.5 days - Take 2000ml of golytely 2 days before the procedure - Take another 2000ml of golytely 1 day before the procedure, in the evening - Take the final 2000ml of golytely the morning of the procedure, 6h before - You can sheepskin pickler simethicone over the c ounter for belching/bloating relief. COLONOSCOPY BIOPSY TODAY'S VISIT Patient who had been following with me but then was referred to Dr. Saran cisneros because I was unable to resolve her issues with her severe constipation. She is now returning to me for follow-up, I am uncertain exactly why but of course I will see her. She had several studies and interventions planned with Dr. Saran cisneros including uro lathe tender referral at [facility] and pelvic floor PT at [facility]. She tried to prep for the colonoscopy, but she became bloated and did not clear. So she feels that she can not have a colonoscopy. Dr. Caraballo wanted her to do double prep but the pt does not feel this would work. She did call the PT for pelvic floor therapy and she is in line for an upcoming appt. She wants to go back on the reglan as it really helped her upper GI problems. She is off of bisacodyl supps, on ly taking fiber and intermittent Miralax. She is doing ok with this and digital stimulating. The reglan helped with the severe belching that interrupts her sleep. She had an abnormal defecogram and a urogyo consult, she did h ave a rectocele on defecogram but urogyno does not feel she needs surgery, but admits she may have a rectocele further up than could be found on bimanual exam. New insurance [employer] and may have better drug coverage going forward. For now we will see if the PT helps and consider if her insurance will provide better coverage for [facility] medication that were not covered under her basic Medicare. ROV 4 weeks. PFSH Surgical History History of left hip replacement History of surgical removal of meniscus of knee H/O partial thyroidectomy H/O esophagogastroduodenoscopy H/O colonoscopy Social History Alcohol intake: never Patient Tobacco Use Status: Never used Tobacco Current occupational status: retired Review of Systems Const Denies fatigue, Denies fever(s), Denies night sweats, Denies poor appetite and Denies weight loss ENT Reports Normal hearing present, Denies dental pain, Denies dysphagia, Denies hearing loss, Denies mouth pain, Denies odynophagia, Denies throat swelling, Denies tongue swelling and Reports other (Dentition adequate) Card Reports no additional complaints Resp Reports no additional complaints GI Details: Denies abdominal pain, Denies melena, Reports bloating, Denies hematochezia, Reports constipation, Denies GI cramping, Denies dysphagia, Denies excessive flatus, Denies early satiety, Reports heartburn, Denies diarrhea, Denies nausea, Denies odynophagia, Denies vomiting and Denies hematemesis Skin/Breast Denies pruritus, Denies lesions, Denies rash and Denies jaundice Neuro Reports Normal hearing present and Denies Abnormal speech present Psych Reports anxiety Endo Denies fatigue Aller/Immun Denies throat swelling and Denies tongue swelling Physical Exam Vital Signs: Last Vital Signs Pulse 86 09/13/23 13:09 BP 123/71 09/13/23 13:09 BMI result Body Mass Index 28.0 Const General: cooperative, no acute distress, well developed and well groomed Nutritional Appearance: average body habitus and well nourished Orientation/consciousness: oriented to person, oriented to place and oriented to time Limitations: No language barrier HEENT Head: Yes normocephalic and Yes atraumatic Eyes General: appearance normal, both eyes and all related structures Pupils: Equal, round and reactive pupils present Neck Neck: Yes normal visual inspection and Yes no lymphadenopathy Thyroid: Thyroid normal Resp Effort & Inspection: normal respiratory effort and able to speak in complete sentences Auscultation: clear to auscultation bilaterally Cardio Rate: regular rate Rhythm: regular rhythm Heart sounds: Normal, physiologic split S2 sound present Peripheral pulses: radial pulses present and posterior tibial pulses present GI Inspection: No distended and No Abdominal panniculus present Palpation (GI): Soft to palpation, nontender, no guarding, not rigid and No hepatosplenomegaly present Percussion: Yes normal to percussion Auscultation: normal bowel sounds Rectal Exam - Female: deferred Skin General skin exam: no rashes or lesions noted, turgor normal, skin not dry, no jaundice, No spider nevi and no striae Rashes: no rashes Nails: normal Neuro General: oriented to person, oriented to place and oriented to time Cranial nerves: Yes Equal, round and reactive pupils present and Yes Normal hearing present Speech: No Abnormal speech present Extrem General: Yes normal to inspection, No clubbing, No cyanosis and No edema Psych Appearance: grossly normal and well kempt Mental Status: mental status grossly normal Speech and movement: Normal speech and movement present Affect: Anxious affect present Attitude: cooperative Thought process: Normal thought process present and not confabulating Thought content: Normal thought content present Insight: Limited insight present (Psych) Judgement: Limited judgement present (Psych) Assessment & Plan Assessment & Plan (1) Chronic idiopathic constipation: Code(s): K59.04 - Chronic idiopathic constipation (2) Small bowel motility disorder: Code(s): K59.9 - Functional intestinal disorder, unspecified (3) GERD (gastroesophageal reflux disease): Code(s): K21.9 - Gastro-esophageal reflux disease without esophagitis (4) Pelvic floor dysfunction: Code(s): M62.89 - Other specified disorders of muscle (5) Rectocele: Code(s): N81.6 - Rectocele Plan Patient who had been following with me but then was referred to Dr. Saran cisneros because I was unable to resolve her issues with her severe constipation. She is now returning to me for follow-up, I am uncertain exactly why but of course I will see her. She had several studies and interventions planned with Dr. Saran cisneros including uro lathe tender referral at [facility] and pelvic floor PT at [facility]. She tried to prep for the colonoscopy, but she became bloated and did not clear. So she feels that she can not have a colonoscopy. Dr. Caraballo wanted her to do double prep but the pt does not feel this would work. She did call the PT for pelvic floor therapy and she is in line for an upcoming appt. She wants to go back on the reglan as it really helped her upper GI problems. She is off of bisacodyl supps, on ly taking fiber and intermittent Miralax. She is doing ok with this and digital stimulating. The reglan helped with the severe belching that interrupts her sleep. She had an abnormal defecogram and a urogyo consult, she did h ave a rectocele on defecogram but urogyno does not feel she needs surgery, but admits she may have a rectocele further up than could be found on bimanual exam. New insurance [employer] and may have better drug coverage going forward. For now we will see if the PT helps and consider if her insurance will provide better coverage for [facility] medication that were not covered under her basic Medicare. ROV 4 weeks. COLONOSCOPY Patient does not feel she can prep so? If this can be done going forward BIOPSY Medications: New metoclopramide HCl (Reglan) 10 mg PO QIDACHS 120 tabs 6RF K59.04 - Chronic idiopathic constipation, K59.9 - Functional intestinal disorder, unspecified Coding Level of Care Code Est Pt Level 4 (11234) Diagnoses Chronic idiopathic constipation K59.04 Small bowel motility disorder K59.9 GERD (gastroesophageal reflux disease) K21.9 Pelvic floor dysfunction M62.89 Rectocele N81.6
== END 2023-09-13 13:55 | disposition home or self-care (01) ==
PROVIDERS: PCP Internal Medicine; Visit Provider Nurse Practitioner
DX: K59.04 Chronic idiopathic constipation (principal); K59.9 Functional intestinal disorder, unspecified; K21.9 Gastro-esophageal reflux disease without esophagitis; M62.89 Other specified disorders of muscle; N81.6 Rectocele
CPT/HCPCS: 99214

== ENCOUNTER → 2023-09-13 13:07 | Outpatient (BNVA) | payer MEDICARE, SELFPAY | PROVIDERS: PCP Internal Medicine; Visit Provider Nurse Practitioner | DX: K59.04 Chronic idiopathic constipation (principal); K59.9 Functional intestinal disorder, unspecified; K21.9 Gastro-esophageal reflux disease without esophagitis; M62.89 Other specified disorders of muscle; N81.6 Rectocele | CPT/HCPCS: 99212 ==

== ENCOUNTER 2023-10-11 13:42 | Outpatient (AMB) | payer MEDICARE, SELFPAY ==
[2023-10-11 13:46] VITALS: BP 113/59; PULSE 80; BMI 27.9
--- NOTE | 2023-10-11 13:46 | A.OFFVIS_ITS ---
Intake Vital Signs 10/11/23 13:46 Height 5 ft 6 in Weight 173 lb BMI 27.9 BP 113/59 L Blood Pressure Location Rt brachial Position Sitting Pulse 80 Intake Visit Reasons: 3 month follow up [facility] Intake Note: Tammi presents to in office 3 months follow up of [facility]. CC: Tammi states she is doing a lot better with metoclopramide and jeane probiotics. Denies having any new GI concerns today. Oral And Maxillofacial Surgery Required: No Accompanied by: Self / Same As Patient Allergies cephalexin [From Keflex] Allergy (Verified 10/11/23 13:55) Rash doxycycline Allergy (Verified 10/11/23 13:55) Unknown levofloxacin [From Levaquin] Allergy (Verified 10/11/23 13:55) Unknown bisacodyl [From Dulcolax (bisacodyl)] Adverse Reaction (Intermediate, Verified 10/11/23 13:55) Nausea HPI 3 month follow up [facility] HPI Details Assessment & Plan (1) Chronic idiopathic constipation: Code(s): K59.04 - Chronic idiopathic constipation (2) Small bowel motility disorder: Code(s): K59.9 - Functional intestinal disorder, unspecified (3) GERD (gastroesophageal reflux diseas e): Code(s): K21.9 - Gastro-esophageal reflux disease without esophagitis (4) Pelvic floor dysfunction: Code(s): M62.89 - Other specified disorders of muscle (5) Rectocele: Code(s): N81.6 - Rectocele Plan Patient who had been following with me but then was referred to Dr. Saran cisneros because I was unable to resolve her issues with her severe constipation. She is now returning to me for follow-up, I am uncertain exactly why but of course I will see her. She had several studies and interventions planned with Dr. Saran cisneros including uro top closer referral at [facility] and pelvic floor PT at [facility]. She tried to prep for the colonoscopy, but she became bloated and did not clear. So she feels that she can not have a colonoscopy. Dr. Caraballo wanted her to do double prep but the pt does not feel this would work. She did call the PT for pelvic floor therapy and she is in line for an upcoming appt. She wants to go back on the reglan as it really helped her upper GI problems. She is off of bisacodyl supps, on ly taking fiber and intermittent Miralax. She is doing ok with this and digital stimulating. The reglan helped with the severe belching that interrupts her sleep. She had an abnormal defecogram and a urogyo consult, she did h ave a rectocele on defecogram but urogyno does not feel she needs surgery, but admits she may have a rectocele further up than could be found on bimanual exam. New insurance [employer] and may have better drug coverage going forward. For now we will see if the PT helps and consider if her insurance will provide better coverage for CIC medication that were not covered under her basic Medicare. ROV 4 weeks. COLONOSCOPY Patient does not feel she can prep so? If this can be done going forward BIOPSY Medications: New metoclopramide HCl (Reglan) 10 mg PO QIDACHS 1 20 tabs 6RF K59.04 - Chronic i diopathic constipa tion, K59.9 - Func tional intestinal disorder, unspecif ied TODAY'S VISIT She restarted on her reglan and she is doing well. She is also taking fiber and a probiotic supplement and she is moving her bowels daily. She also is using Miralax qod 2 capfuls bid. She has new insurance now and if we need to progress then we may be able to go back to [facility]. ROV 6 weeks. [facility] Surgical History History of left hip replacement History of surgical removal of meniscus of knee H/O partial thyroidectomy H/O esophagogastroduodenoscopy H/O colonoscopy Social History Alcohol intake: never Patient Tobacco Use Status: Never used Tobacco Current occupational status: retired Review of Systems Const Denies fatigue, Denies fever(s), Denies night sweats, Denies poor appetite and Denies weight loss Eyes Details: glasses Reports requires corrective lenses ENT Reports Normal hearing present, Denies dental pain, Denies dysphagia, Denies hearing loss, Denies mouth pain, Denies odynophagia, Denies throat swelling, Denies tongue swelling and Reports other (Dentition adequate) Card Reports no additional complaints Resp Reports no additional complaints GI Details: Denies abdominal pain, Denies melena, Denies bloating, Denies hematochezia, Reports constipation, Denies GI cramping, Denies dysphagia, Denies excessive flatus, Denies early satiety, Denies heartburn, Denies diarrhea, Denies nausea, Denies odynophagia, Denies vomiting and Denies hematemesis Skin/Breast Denies pruritus, Denies lesions, Denies rash and Denies jaundice Neuro Reports Normal hearing present and Denies Abnormal speech present Endo Denies fatigue Aller/Immun Denies throat swelling and Denies tongue swelling Physical Exam Vital Signs: Last Vital Signs Pulse 80 10/11/23 13:46 BP 113/59 L 10/11/23 13:46 BMI result Body Mass Index 27.9 Const General: cooperative, no acute distress, well developed and well groomed Nutritional Appearance: average body habitus and well nourished Orientation/consciousness: oriented to person, oriented to place and oriented to time Limitations: No language barrier HEENT Head: Yes normocephalic and Yes atraumatic Eyes General: appearance normal, both eyes and all related structures Pupils: Equal, round and reactive pupils present Neck Neck: Yes normal visual inspection and Yes no lymphadenopathy Thyroid: Thyroid normal Resp Effort & Inspection: normal respiratory effort and able to speak in complete sentences Auscultation: clear to auscultation bilaterally Cardio Rate: regular rate Rhythm: regular rhythm Heart sounds: Normal, physiologic split S2 sound present Peripheral pulses: radial pulses present and posterior tibial pulses present GI Inspection: No distended and No Abdominal panniculus present Palpation (GI): Soft to palpation, nontender, no guarding, not rigid and No hepatosplenomegaly present Percussion: Yes normal to percussion Auscultation: normal bowel sounds Rectal Exam - Female: deferred Skin General skin exam: no rashes or lesions noted, turgor normal, skin not dry, no jaundice, No spider nevi and no striae Rashes: no rashes Nails: normal Neuro General: oriented to person, oriented to place and oriented to time Cranial nerves: Yes Equal, round and reactive pupils present and Yes Normal hearing present Speech: No Abnormal speech present Extrem General: Yes normal to inspection, No clubbing, No cyanosis and No edema Psych Appearance: grossly normal and well kempt Mental Status: mental status grossly normal Speech and movement: Normal speech and movement present Affect: normal affect Attitude: cooperative Thought process: Normal thought process present and not confabulating Thought content: Normal thought content present Insight: Limited insight present (Psych) Judgement: Limited judgement present (Psych) Assessment & Plan Assessment & Plan (1) Small bowel motility disorder: Code(s): K59.9 - Functional intestinal disorder, unspecified (2) Chronic idiopathic constipation: Code(s): K59.04 - Chronic idiopathic constipation (3) GERD (gastroesophageal reflux disease): Code(s): K21.9 - Gastro-esophageal reflux disease without esophagitis (4) Pelvic floor dysfunction: Code(s): M62.89 - Other specified disorders of muscle (5) Rectocele: Code(s): N81.6 - Rectocele Plan She restarted on her reglan and she is doing well. She is also taking fiber and a probiotic supplement and she is moving her bowels daily. She also is using Miralax qod 2 capfuls bid. She has new insurance now and if we need to progress then we may be able to go back to [facility]. [facility] 6 weeks. Coding Level of Care Code Est Pt Level 3 (66386) Diagnoses Small bowel motility disorder K59.9 Chronic idiopathic constipation K59.04 GERD (gastroesophageal reflux disease) K21.9 Pelvic floor dysfunction M62.89 Rectocele N81.6
== END 2023-10-11 14:38 | disposition home or self-care (01) ==
PROVIDERS: PCP Internal Medicine; Visit Provider Nurse Practitioner
DX: K59.9 Functional intestinal disorder, unspecified (principal); K59.04 Chronic idiopathic constipation; K21.9 Gastro-esophageal reflux disease without esophagitis; M62.89 Other specified disorders of muscle; N81.6 Rectocele
CPT/HCPCS: 99213

== ENCOUNTER → 2023-10-11 13:42 | Outpatient (BNVA) | payer MEDICARE, SELFPAY | PROVIDERS: PCP Internal Medicine; Visit Provider Nurse Practitioner | DX: K59.04 Chronic idiopathic constipation (principal); K59.9 Functional intestinal disorder, unspecified; K21.9 Gastro-esophageal reflux disease without esophagitis; M62.89 Other specified disorders of muscle; N81.6 Rectocele | CPT/HCPCS: 99212 ==

== ENCOUNTER 2023-12-19 14:10 | Outpatient (AMB) | payer MEDICARE, SELFPAY ==
--- NOTE | 2023-12-19 14:22 | MHC.OFFVIS ---
Vital Signs 12/19/23 14:28 Height 5 ft 6 in BP 127/61 Blood Pressure Location Rt brachial Position Sitting Pulse 77 Intake Visit Reasons: Follow up 5 weeks Intake Note: Tammi presents to in office follow up of [facility]. CC: Tammi states that she would like to have something else to complement her fiber. She c/o lower back pain for about a month ago. States that overall she is doing better. [employer] Required: No Accompanied by: Self / Same As Patient Allergies cephalexin [From Keflex] Allergy (Verified 12/31/23 13:07) Rash doxycycline Allergy (Verified 12/31/23 13:07) Unknown levofloxacin [From Levaquin] Allergy (Verified 12/31/23 13:07) Unknown bisacodyl [From Dulcolax (bisacodyl)] Adverse Reaction (Intermediate, Verified 12/31/23 13:07) Nausea Medication List - Last Reconciled 12/19/23 by JAMES Santos [jeane prebiotic PO DAILY] clonazepam 1 - 2 mg PO DAILY lactulose 20 grams (30 mL) PO BEDTIME metoclopramide HCl (Reglan) 10 mg PO QIDACHS omeprazole 20 mg PO DAILY polyethylene glycol 3350 (Miralax) 17 grams PO BID venlafaxine ER 150 mg PO DAILY venlafaxine ER 37.5 mg PO DAILY HPI HPI Follow up 5 weeks: Details: Assessment & Plan (1) Small bowel motility disorder: Code(s): K59.9 - Functional intestinal disorder, unspecified (2) Chronic idiopathic constipation: Code(s): K59.04 - Chronic idiopathic constipation (3) GERD (gastroesophageal reflux disease): Code(s): K21.9 - Gastro-esophageal reflux disease without esophagitis (4) Pelvic floor dysfunction: Code(s): M62.89 - Other specified disorders of muscle (5) Rectocele: Code(s): N81.6 - Rectocele Plan She restarted on her reglan and she is doing well. She is also taking fiber and a probiotic supplement and she is moving her bowels daily. She also is using Miralax qod 2 capfuls bid. She has new insurance now and if we need to progress then we may be able to go back to [facility]. ROV 6 weeks. COLONOSCOPY Patient does not feel she can prep so? If this can be done going forward BIOPSY Medications: New metoclopramide HCl (Reglan) 10 mg PO QIDACHS 120 tabs 6RF K59.04 - Chronic idiopathic constipation, K59.9 - Functional intestinal disorder, unspecified TODAY'S VISIT She says she is doing OK. She is using a probiotic and QOD Miralax. She is taking the reglan tid instead of qid. She eats a lot of fiber. She still has some back pain with her BM's, she would like to try lactulose - tis is ok with me but it may cause more gas and bloating depending on her tolerance. She can try this and stop if the s/e are too much. ROV 2 mos. PFSH Surgical History H/O partial thyroidectomy History of left hip replacement History of surgical removal of meniscus of knee H/O esophagogastroduodenoscopy H/O colonoscopy Social History Alcohol intake: never Patient Tobacco Use Status: Never used Tobacco Current occupational status: retired Review of Systems Const Denies fatigue, Denies fever(s), Denies night sweats, Denies poor appetite and Denies weight loss ENT Reports Normal hearing present, Denies dental pain, Denies dysphagia, Denies hearing loss, Denies mouth pain, Denies odynophagia, Denies throat swelling, Denies tongue swelling and Reports other (Dentition adequate) Card Reports no additional complaints Resp Reports no additional complaints GI Details: Denies abdominal pain, Denies melena, Reports bloating, Denies hematochezia, Reports constipation, Denies GI cramping, Denies dysphagia, Denies excessive flatus, Denies early satiety, Reports heartburn, Denies diarrhea, Denies nausea, Denies odynophagia, Denies vomiting and Denies hematemesis Skin/Breast Denies pruritus, Denies lesions, Denies rash and Denies jaundice Neuro Reports Normal hearing present and Denies Abnormal speech present Endo Denies fatigue Aller/Immun Denies throat swelling and Denies tongue swelling Physical Exam Vital Signs: Last Vital Signs Pulse 77 12/19/23 14:28 BP 127/61 12/19/23 14:28 Const General: cooperative, no acute distress, well developed and well groomed Nutritional Appearance: average body habitus and well nourished Orientation/consciousness: oriented to person, oriented to place and oriented to time Limitations: No language barrier HEENT Head: Yes normocephalic and Yes atraumatic Eyes General: appearance normal, both eyes and all related structures Pupils: Equal, round and reactive pupils present Neck Neck: Yes normal visual inspection and Yes no lymphadenopathy Thyroid: Thyroid normal Resp Effort & Inspection: normal respiratory effort and able to speak in complete sentences Auscultation: clear to auscultation bilaterally Cardio Rate: regular rate Rhythm: regular rhythm Heart sounds: Normal, physiologic split S2 sound present Peripheral pulses: radial pulses present and posterior tibial pulses present GI Inspection: No distended and No Abdominal panniculus present Palpation (GI): Soft to palpation, nontender, no guarding, not rigid and No hepatosplenomegaly present Percussion: Yes normal to percussion Auscultation: normal bowel sounds Rectal Exam - Female: deferred Skin General skin exam: no rashes or lesions noted, turgor normal, skin not dry, no jaundice, No spider nevi and no striae Rashes: no rashes Nails: normal Neuro General: oriented to person, oriented to place and oriented to time Cranial nerves: Yes Equal, round and reactive pupils present and Yes Normal hearing present Speech: No Abnormal speech present Extrem General: Yes normal to inspection, No clubbing, No cyanosis and No edema Psych Appearance: grossly normal and well kempt Mental Status: mental status grossly normal Speech and movement: Normal speech and movement present Affect: normal affect Attitude: cooperative Thought process: Normal thought process present and not confabulating Thought content: Normal thought content present Insight: Limited insight present (Psych) Judgement: Limited judgement present (Psych) Assessment & Plan Assessment & Plan (1) Pelvic floor dysfunction: Code(s): M62.89 - Other specified disorders of muscle Category: Medical (2) Rectocele: Code(s): N81.6 - Rectocele Category: Medical (3) Small bowel motility disorder: Code(s): K59.9 - Functional intestinal disorder, unspecified Category: Medical (4) Chronic idiopathic constipation: Code(s): K59.04 - Chronic idiopathic constipation Category: Medical (5) GERD (gastroesophageal reflux disease): Code(s): K21.9 - Gastro-esophageal reflux disease without esophagitis Category: Medical (6) Erosive gastritis: Code(s): K29.60 - Other gastritis without bleeding Category: Medical Plan She says she is doing OK. She is using a probiotic and QOD Miralax. She is taking the reglan tid instead of qid. She eats a lot of fiber. She still has some back pain with her BM's, she would like to try lactulose - tis is ok with me but it may cause more gas and bloating depending on her tolerance. She can try this and stop if the s/e are too much. ROV 2 mos. Medications: New lactulose 20 grams (30 mL) PO BEDTIME 3,000 mL 6RF K59.04 - Chronic idiopathic constipation Refilled omeprazole 20 mg PO DAILY 30 caps 6RF Discontinued simethicone Discontinued Reason: Doctor's Order 125 mg PO BID-QID PRN 60 caps 0RF abdominal distention Coding Level of Care Code Est Pt Level 3 (56648) Diagnoses Pelvic floor dysfunction M62.89 Rectocele N81.6 Small bowel motility disorder K59.9 Chronic idiopathic constipation K59.04 GERD (gastroesophageal reflux disease) K21.9 Erosive gastritis K29.60
[2023-12-19 14:28] VITALS: BP 127/61; PULSE 77
== END 2023-12-19 15:07 | disposition home or self-care (01) ==
PROVIDERS: Visit Provider Nurse Practitioner
DX: M62.89 Other specified disorders of muscle (principal); N81.6 Rectocele; K59.9 Functional intestinal disorder, unspecified; K59.04 Chronic idiopathic constipation; K21.9 Gastro-esophageal reflux disease without esophagitis; K29.60 Other gastritis without bleeding
CPT/HCPCS: 99213

== ENCOUNTER → 2023-12-19 14:10 | Outpatient (BNVA) | payer MEDICARE, SELFPAY | PROVIDERS: Visit Provider Nurse Practitioner | DX: M62.89 Other specified disorders of muscle (principal); N81.6 Rectocele; K59.9 Functional intestinal disorder, unspecified; K59.04 Chronic idiopathic constipation; K21.9 Gastro-esophageal reflux disease without esophagitis; K29.60 Other gastritis without bleeding | CPT/HCPCS: 99212 ==

== ENCOUNTER 2023-12-31 13:00 | Outpatient (AMB) | payer MEDICARE, SELFPAY ==
--- NOTE | 2023-12-31 13:02 | MHC.OFFVIS ---
Intake Visit Reasons: INJ Bilateral Durolane gel injecton Intake Note: Tammi is a 73 year old female who presents with complaints of progressively worsening bilateral knee pains. She has had cortisone injections in the past which gave her minimal relief. She has also had viscosupplementation injections which gave her fairly good relief. She has tried Tylenol and anti-inflammatory medicines which gave her minimal relief. She has done physical therapy exercises which aggravated her pain. She wishes to hold off on surgery for as long as possible. Allergies cephalexin [From Keflex] Allergy (Verified 12/31/23 13:07) Rash doxycycline Allergy (Verified 12/31/23 13:07) Unknown levofloxacin [From Levaquin] Allergy (Verified 12/31/23 13:07) Unknown bisacodyl [From Dulcolax (bisacodyl)] Adverse Reaction (Intermediate, Verified 12/31/23 13:07) Nausea Medication List - Last Reconciled 12/31/23 by Julien Hair MD [jeane prebiotic PO DAILY] clonazepam 1 - 2 mg PO DAILY lactulose 20 grams (30 mL) PO BEDTIME metoclopramide HCl (Reglan) 10 mg PO QIDACHS omeprazole 20 mg PO DAILY polyethylene glycol 3350 (Miralax) 17 grams PO BID venlafaxine ER 150 mg PO DAILY venlafaxine ER 37.5 mg PO DAILY PFSH Surgical History H/O partial thyroidectomy History of left hip replacement History of surgical removal of meniscus of knee H/O esophagogastroduodenoscopy H/O colonoscopy Social History Alcohol intake: never Patient Tobacco Use Status: Never used Tobacco Current occupational status: retired Physical Exam Const Other: Well-nourished well-developed very friendly female awake alert and oriented x3 in no acute distress Extrem Other: Bilateral lower extremity examination shows good capillary refill, no skin lesions noted, normal sensation light touch Bilateral knee examination shows minimal effusions, palpable crepitus with range of motion, pain with range motion, no instability Office Procedures Joint Injection/Drain Joint Injection/Drain Primary Site: right knee Prep: site was prepped using aseptic technique Injected: 60 mg of (Durolane viscosupplementation) and 1% plain lidocaine Procedure: The patient tolerated the procedure well Coding 33551 - Large joint Procedure code (CPT) selection complete Joint Injection/Drain Joint Injection/Drain Primary Site: left knee Prep: site was prepped using aseptic technique Injected: 60 mg of (Durolane viscosupplementation) and 1% plain lidocaine Procedure: The patient tolerated the procedure well Coding 53335 - Large joint Procedure code (CPT) selection complete Results Reviewed Results Reviewed: X-rays of the patient's bilateral knee show joint space narrowing, subchondral sclerosis, no acute bony abnormalities Assessment & Plan Assessment & Plan (1) Arthritis of left knee: Code(s): M17.12 - Unilateral primary osteoarthritis, left knee Category: Medical Plan Ms. Clifford presents with bilateral knee pains due to degenerative joint disease. I had a lengthy discussion with the patient regarding the treatment options. She wishes hold off on surgery for as long as possible. I agree with this plan. She has not gotten good relief from cortisone injections in the past. Thus, the risks and benefits of bilateral Durolane viscosupplementation injections were discussed at length with the patient. The patient wished to proceed. She tolerated the injections well. She will continue with her home exercise program. She will follow up with me on an as-needed basis should her symptoms not plateau at an unacceptable level over the next few months. Feel free to call me at any time should questions regarding her orthopedic management arise. I spent 22 minutes in reviewing the patient's records and imaging studies, seeing the patient and documenting in the medical record. Orders: Orders AMB Joint Injection/Aspiration Today M17.11 - Unilateral primary osteoarthritis, right knee AMB Joint Injection/Aspiration Today M17.12 - Unilateral primary osteoarthritis, left knee Coding Level of Care Code Est Pt Level 3 (87433) Diagnoses Arthritis of left knee M17.12 CPT Codes Coding - 76599 Large joint: 51642 - Large joint ([id number]) Coding - 89622 Large joint: 28095 - Large joint ([id number])
== END 2023-12-31 13:27 | disposition home or self-care (01) ==
PROVIDERS: Visit Provider Orthopaedic Surgery
DX: M17.0 Bilateral primary osteoarthritis of knee (principal)
CPT/HCPCS: 20610; 99213

== ENCOUNTER → 2023-12-31 13:00 | Outpatient (BNVA) | payer MEDICARE, SELFPAY | PROVIDERS: Visit Provider Orthopaedic Surgery | DX: M17.0 Bilateral primary osteoarthritis of knee (principal) | CPT/HCPCS: 20610; 99212; J7318 ==

== ENCOUNTER 2024-02-12 14:24 | Outpatient (AMB) | payer MEDICARE, SELFPAY ==
--- NOTE | 2024-02-12 14:25 | MHC.OFFVIS ---
Vital Signs 02/12/24 14:26 Height 5 ft 6 in BP 112/66 Blood Pressure Location Lt brachial Position Sitting Pulse 75 Intake Visit Reasons: 2 month follow up Intake Note: Tammi returns to in office visit today in 2 months follow up of [facility]. CC: Patient reports doing well. [employer] Required: No Accompanied by: Self / Same As Patient Allergies cephalexin [From Keflex] Allergy (Verified 02/12/24 14:35) Rash doxycycline Allergy (Verified 02/12/24 14:35) Unknown levofloxacin [From Levaquin] Allergy (Verified 02/12/24 14:35) Unknown bisacodyl [From Dulcolax (bisacodyl)] Adverse Reaction (Intermediate, Verified 02/12/24 14:35) Nausea HPI HPI 2 month follow up: Details: Assessment & Plan (1) Pelvic floor dysfunction: Code(s): M62.89 - Other specified disorders of muscle Category: Medical (2) Rectocele: Code(s): N81.6 - Rectocele Category: Medical (3) Small bowel motility disorder: Code(s): K59.9 - Functional intestinal disorder, unspecified Category: Medical (4) Chronic idiopathic constipation: Code(s): K59.04 - Chronic idiopathic constipation Category: Medical (5) GERD (gastroesophageal reflux disease): Code(s): K21.9 - Gastro-esophageal reflux disease without esophagitis Category: Medical (6) Erosive gastritis: Code(s): K29.60 - Other gastritis without bleeding Category: Medical Plan She says she is doing OK. She is using a probiotic and QOD Miralax. She is taking the reglan tid instead of qid. She eats a lot of fiber. She still has some back pain with her BM's, she would like to try lactulose - tis is ok with me but it may cause more gas and bloating depending on her tolerance. She can try this and stop if the s/e are too much. ROV 2 mos. Medications: New lactulose 20 grams (30 mL) PO BEDTIME 3,000 mL 6RF K59.04 - Chronic idiopathic constipation Refilled omeprazole 20 mg PO DAILY 30 caps 6RF Discontinued simethicone Discontinued Reason: Doctor's Order 125 mg PO BID-QID PRN 60 caps 0RF abdominal distention COLONOSCOPY Patient does not feel she can prep so? If this can be done going forward BIOPSY Medications: New metoclopramide HCl (Reglan) 10 mg PO QIDACHS 120 tabs 6RF K59.04 - Chronic idiopathic constipation, K59.9 - Functional intestinal disorder, unspecified TODAY'S VISIT She is taking miralalx bid and up to 2 TBL of lactulose qhs. She has been reading about motegrity and she would like to try this but she fears expense. She has many questions about many motility agents most are not used in this market. I will send motegrity trial She needs knee surgery, and we discuss Movantik if she needs this and to take pain medications. ROV 7 weeks. [facility] Surgical History H/O partial thyroidectomy History of left hip replacement History of surgical removal of meniscus of knee H/O esophagogastroduodenoscopy H/O colonoscopy Social History Alcohol intake: never Patient Tobacco Use Status: Never used Tobacco Current occupational status: retired Review of Systems Const Denies fatigue, Denies fever(s), Denies night sweats, Denies poor appetite and Denies weight loss ENT Reports Normal hearing present, Denies dental pain, Denies dysphagia, Denies hearing loss, Denies mouth pain, Denies odynophagia, Denies throat swelling, Denies tongue swelling and Reports other (Dentition adequate) Card Reports no additional complaints Resp Reports no additional complaints GI Details: Denies abdominal pain, Denies melena, Denies bloating, Denies hematochezia, Reports constipation, Denies GI cramping, Denies dysphagia, Denies excessive flatus, Denies early satiety, Reports heartburn, Denies diarrhea, Denies nausea, Denies odynophagia, Denies vomiting and Denies hematemesis Skin/Breast Denies pruritus, Denies lesions, Denies rash and Denies jaundice Neuro Reports Normal hearing present and Denies Abnormal speech present Endo Denies fatigue Aller/Immun Denies throat swelling and Denies tongue swelling Physical Exam Vital Signs: Last Vital Signs Pulse 75 02/12/24 14:26 BP 112/66 02/12/24 14:26 Const General: cooperative, no acute distress, well developed and well groomed Nutritional Appearance: average body habitus and well nourished Orientation/consciousness: oriented to person, oriented to place and oriented to time Limitations: No language barrier HEENT Head: Yes normocephalic and Yes atraumatic Eyes General: appearance normal, both eyes and all related structures Pupils: Equal, round and reactive pupils present Neck Neck: Yes normal visual inspection and Yes no lymphadenopathy Thyroid: Thyroid normal Resp Effort & Inspection: normal respiratory effort and able to speak in complete sentences Auscultation: clear to auscultation bilaterally Cardio Rate: regular rate Rhythm: regular rhythm Heart sounds: Normal, physiologic split S2 sound present Peripheral pulses: radial pulses present and posterior tibial pulses present GI Inspection: No distended and No Abdominal panniculus present Palpation (GI): Soft to palpation, nontender, no guarding, not rigid and No hepatosplenomegaly present Percussion: Yes normal to percussion Auscultation: normal bowel sounds Rectal Exam - Female: deferred Skin General skin exam: no rashes or lesions noted, turgor normal, skin not dry, no jaundice, No spider nevi and no striae Rashes: no rashes Nails: normal Neuro General: oriented to person, oriented to place and oriented to time Cranial nerves: Yes Equal, round and reactive pupils present and Yes Normal hearing present Speech: No Abnormal speech present Extrem General: Yes normal to inspection, No clubbing, No cyanosis and No edema Psych Appearance: grossly normal and well kempt Mental Status: mental status grossly normal Speech and movement: Normal speech and movement present Affect: normal affect Attitude: cooperative Thought process: Normal thought process present and not confabulating Thought content: Normal thought content present Insight: Limited insight present (Psych) Judgement: Limited judgement present (Psych) Assessment & Plan Assessment & Plan (1) Chronic idiopathic constipation: Code(s): K59.04 - Chronic idiopathic constipation Category: Medical (2) Small bowel motility disorder: Code(s): K59.9 - Functional intestinal disorder, unspecified Category: Medical (3) Erosive gastritis: Code(s): K29.60 - Other gastritis without bleeding Category: Medical (4) GERD (gastroesophageal reflux disease): Code(s): K21.9 - Gastro-esophageal reflux disease without esophagitis Category: Medical Plan She is taking miralalx bid and up to 2 TBL of lactulose qhs. She has been reading about motegrity and she would like to try this but she fears expense. She tried the Linzess the found that did not agree with her. She has many questions about many motility agents most are not used in this market. I will send motegrity trial She needs knee surgery, and we discuss Movantik if she needs this and to take pain medications. She continues on her Reglan 10 mg 4 times a day and on her omeprazole. The Reglan has significantly helped her with the GERD but not so much with her overall bowel motility. She has no adverse effects. ROV 7 weeks. Medications: New polyethylene glycol 3350 (Miralax) 17 grams PO BID 100 ea 6RF prucalopride (Motegrity) 1 mg PO DAILY 7 tabs 0RF Refilled omeprazole 20 mg PO DAILY 30 caps 6RF Coding Level of Care Code Est Pt Level 3 (31559) Diagnoses Chronic idiopathic constipation K59.04 Small bowel motility disorder K59.9 Erosive gastritis K29.60 GERD (gastroesophageal reflux disease) K21.9
[2024-02-12 14:26] VITALS: BP 112/66; PULSE 75
== END 2024-02-12 15:10 | disposition home or self-care (01) ==
PROVIDERS: Visit Provider Nurse Practitioner
DX: K59.04 Chronic idiopathic constipation (principal); K59.9 Functional intestinal disorder, unspecified; K29.60 Other gastritis without bleeding; K21.9 Gastro-esophageal reflux disease without esophagitis
CPT/HCPCS: 99213

== ENCOUNTER → 2024-02-12 14:24 | Outpatient (BNVA) | payer MEDICARE, SELFPAY | PROVIDERS: Visit Provider Nurse Practitioner | DX: K59.04 Chronic idiopathic constipation (principal); M62.89 Other specified disorders of muscle; K59.9 Functional intestinal disorder, unspecified; K21.9 Gastro-esophageal reflux disease without esophagitis; K29.60 Other gastritis without bleeding; N81.6 Rectocele | CPT/HCPCS: 99212 ==

== ENCOUNTER 2024-04-01 13:59 | Outpatient (AMB) | payer MEDICARE, SELFPAY ==
[2024-04-01 14:00] VITALS: BMI 27.9
--- NOTE | 2024-04-01 14:00 | MHC.OFFVIS ---
Vital Signs 04/01/24 14:00 Height 5 ft 6 in Weight 173 lb BMI 27.9 Intake Visit Reasons: Bilateral knee pain Intake Note: Tammi is a 73 year old female who presents with complaints of bilateral knee pains. She describes her pains as sharp in nature. Her pains have gotten worse over the last few years in spite of continued non operative treatments. She has done physical therapy which aggravated her pain. She has also tried Tylenol and anti-inflammatory medicines which gave her minimal relief. She has had cortisone injections in the past which gave her no relief. She has also had Durolane viscosupplementation injections which gave her good relief. She wishes to hold off on total knee replacement surgery if at all possible. The patient has failed the last 3 months of conservative treatment which consisted of a home exercise program, topical creams, as well as Tylenol and anti-inflammatory medicines. Allergies cephalexin [From Keflex] Allergy (Verified 02/12/24 14:35) Rash doxycycline Allergy (Verified 02/12/24 14:35) Unknown levofloxacin [From Levaquin] Allergy (Verified 02/12/24 14:35) Unknown bisacodyl [From Dulcolax (bisacodyl)] Adverse Reaction (Intermediate, Verified 02/12/24 14:35) Nausea PFSH Surgical History H/O partial thyroidectomy History of left hip replacement History of surgical removal of meniscus of knee H/O esophagogastroduodenoscopy H/O colonoscopy Social History Alcohol intake: never Patient Tobacco Use Status: Never used Tobacco Current occupational status: retired Physical Exam Vital Signs: BMI result Body Mass Index 27.9 Const Other: Well-nourished well-developed very friendly female awake alert and oriented x3 in no acute distress Extrem Other: Bilateral lower extremity examination shows good capillary refill, no skin lesions noted, normal sensation light touch Bilateral knee examination shows minimal effusions, palpable crepitus with range of motion, pain with range of motion, no instability Results Reviewed Results Reviewed: X-rays of the patient's bilateral knees taken previously show joint space narrowing, subchondral sclerosis, no acute bony abnormalities Assessment & Plan Assessment & Plan (1) Pain in both knees: Code(s): M25.561 - Pain in right knee; M25.562 - Pain in left knee (2) Osteoarthritis of left knee: Code(s): M17.12 - Unilateral primary osteoarthritis, left knee Category: Medical (3) Osteoarthritis of right knee: Code(s): M17.11 - Unilateral primary osteoarthritis, right knee Category: Medical Plan Ms. Clifford presents with bilateral knee pains due to osteoarthritis. I had a lengthy discussion with the patient regarding the treatment options. She wishes to hold off on total knee replacement surgery for as long as possible. I agree with this plan. I will see whether or not the patient's insurance company will cover a another set of Durolane viscosupplementation injections for both of her knees. I will see her back once the injections are available. Feel free to call me at any time should questions regarding her orthopedic management arise. I spent 22 minutes in reviewing the patient's records and imaging studies, seeing the patient and documenting in the medical record. Coding Level of Care Code Est Pt Level 3 (46512) Complex EM visit Add On G2211 Diagnoses Pain in both knees M25.561; M25.562 Osteoarthritis of left knee M17.12 Osteoarthritis of right knee M17.11
== END 2024-04-01 14:17 | disposition home or self-care (01) ==
PROVIDERS: Visit Provider Orthopaedic Surgery
DX: M17.0 Bilateral primary osteoarthritis of knee (principal)
CPT/HCPCS: 99213; G2211

== ENCOUNTER → 2024-04-01 13:59 | Outpatient (BNVA) | payer MEDICARE, SELFPAY | PROVIDERS: Visit Provider Orthopaedic Surgery | DX: M17.0 Bilateral primary osteoarthritis of knee (principal) | CPT/HCPCS: 99212 ==

== ENCOUNTER 2024-04-14 10:21 | Outpatient (REF) | payer MEDICARE, SELFPAY ==
--- NOTE | ~2024-04-14 | XR_ITS ---
EXAMINATION: XR KNEE, RIGHT CLINICAL INFORMATION: Primary osteoarthritis COMPARISON: None available. TECHNIQUE: Four views of the right knee. FINDINGS: No acute fracture or dislocation. There is moderate medial compartment with subchondral sclerosis as well as mild patellofemoral joint space narrowing. No suprapatellar joint effusion. XR/XR knee RT 3V IMPRESSION: Mild-moderate degenerative disease of the right knee. Electronically signed by: Bailey Houston MD 04/28/2024 03:33 PM EDT
--- NOTE | ~2024-04-14 | XR_ITS ---
EXAMINATION: XR KNEE, LEFT CLINICAL INFORMATION: Primary osteoarthritis COMPARISON: None available. TECHNIQUE: Four views of the left knee. FINDINGS: No fracture or joint effusion. Alignment is anatomic. Mild medial compartment joint space narrowing with subchondral stenosis. No abnormal soft tissue calcification. XR/XR knee LT 3V IMPRESSION: Mild degenerative disease of the left knee. Electronically signed by: Bailey Houston MD 04/28/2024 03:41 PM EDT
== END 2024-04-14 10:22 | disposition home or self-care (01) ==
LOC: HO.XRAY 10:21
PROVIDERS: PCP Internal Medicine; Visit Provider Orthopaedic Surgery
DX: M17.0 Bilateral primary osteoarthritis of knee (principal)
CPT/HCPCS: 73562

== ENCOUNTER 2024-04-16 14:22 | Outpatient (AMB) | payer MEDICARE, SELFPAY ==
--- NOTE | 2024-04-16 14:38 | A.OFFVIS_ITS ---
Vital Signs 04/16/24 14:52 Height 5 ft 6 in Weight 175 lb BMI 28.2 BP 114/59 L Blood Pressure Location Lt brachial Position Sitting Pulse 78 Intake Visit Reasons: 7 week follow up Intake Note: Tammi presents in the office as a 7 week follow up. CC: She states that she is always having concerns with the issues that she has. 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 Allergies cephalexin [From Keflex] Allergy (Verified 04/16/24 14:56) Rash doxycycline Allergy (Verified 04/16/24 14:56) Unknown levofloxacin [From Levaquin] Allergy (Verified 04/16/24 14:56) Unknown bisacodyl [From Dulcolax (bisacodyl)] Adverse Reaction (Intermediate, Verified 04/16/24 14:56) Nausea Medication List - Last Reconciled 04/16/24 by JAMES Santos [jeane prebiotic PO DAILY] clonazepam 0.5 mg PO DAILY lactulose (Constulose) PO magnesium oxide 500 mg PO BID metoclopramide HCl (Reglan) 10 mg PO QIDACHS omeprazole 20 mg PO DAILY polyethylene glycol 3350 (Miralax) 17 grams PO BID prucalopride (Motegrity) 1 mg PO DAILY venlafaxine ER 150 mg PO DAILY venlafaxine ER 37.5 mg PO DAILY HPI HPI 7 week follow up: Details: Assessment & Plan (1) Chronic idiopathic constipation: Code(s): K59.04 - Chronic idiopathic constipation Category: Medical (2) Small bowel motility disorder: Code(s): K59.9 - Functional intestinal disorder, unspecified Category: Medical (3) Erosive gastritis: Code(s): K29.60 - Other gastritis without bleeding Category: Medical (4) GERD (gastroesophageal reflux disease): Code(s): K21.9 - Gastro-esophageal reflux disease without esophagitis Category: Medical Plan She is taking miralalx bid and up to 2 TBL of lactulose qhs. She has been reading about motegrity and she would like to try this but she fears expense. She tried the Linzess the found that did not agree with her. She has many questions about many motility agents most are not used in this market. I will send motegrity trial She needs knee surgery, and we discuss Movantik if she needs this and to take pain medications. She continues on her Reglan 10 mg 4 times a day and on her omeprazole. The Reglan has significantly helped her with the GERD but not so much with her overall bowel motility. She has no adverse effects. ROV 7 weeks. Medications: New polyethylene glycol 3350 (Miralax) 17 grams PO BID 100 ea 6RF prucalopride (Motegrity) 1 mg PO DAILY 7 tabs 0RF Refilled omeprazole 20 mg PO DAILY 30 caps 6RF COLONOSCOPY Patient does not feel she can prep so? If this can be done going forward BIOPSY Medications: New metoclopramide HCl (Reglan) 10 mg PO QIDACHS 120 tabs 6RF K59.04 - Chronic idiopathic constipation, K59.9 - Functional intestinal disorder, unspecified TODAY'S VISIT she feels that the lactulose is still working well for her. She has been taking for tbsp at once once a day. Since lactulose is just a non dissolvable sacral either really isn't dose limit on it so I think will increase this to 4 tbsp twice a day. I also think she should try adding magnesium supplement and I suggest magnesium oxide 500 mg twice a day. She continues on her metoclopramide 10 mg 4 times a day. She continues on a pr ebiotic fiber as well. She is also continuing on omeprazole for heartburn. Will try this and have her come back in 6 weeks to see how she is doing [facility] Surgical History H/O partial thyroidectomy History of left hip replacement History of surgical removal of meniscus of knee H/O esophagogastroduodenoscopy H/O colonoscopy Social History Alcohol intake: never Patient Tobacco Use Status: Never used Tobacco Current occupational status: retired Review of Systems Const Denies fatigue, Denies fever(s), Denies night sweats, Denies poor appetite and Denies weight loss ENT Reports Normal hearing present, Denies dysphagia, Denies odynophagia, Denies throat swelling and Denies tongue swelling Card Reports no additional complaints Resp Reports no additional complaints GI Details: Denies abdominal pain, Denies melena, Reports bloating, Denies hematochezia, Reports constipation, Denies GI cramping, Denies dysphagia, Denies excessive flatus, Denies early satiety, Reports heartburn, Denies diarrhea, Denies nausea, Denies odynophagia, Denies vomiting and Denies hematemesis Skin/Breast Denies pruritus, Denies lesions, Denies rash and Denies jaundice Neuro Reports Normal hearing present and Denies Abnormal speech present Endo Denies fatigue Aller/Immun Denies throat swelling and Denies tongue swelling Physical Exam Vital Signs: Last Vital Signs Pulse 78 04/16/24 14:52 BP 114/59 L 04/16/24 14:52 BMI result Body Mass Index 28.2 Const General: cooperative, no acute distress, well developed and well groomed Nutritional Appearance: average body habitus and well nourished Orientation/consciousness: oriented to person, oriented to place and oriented to time Limitations: No language barrier HEENT Head: Yes normocephalic and Yes atraumatic Eyes General: appearance normal, both eyes and all related structures Pupils: Equal, round and reactive pupils present Neck Neck: Yes normal visual inspection and Yes no lymphadenopathy Thyroid: Thyroid normal Resp Effort & Inspection: normal respiratory effort and able to speak in complete sentences Auscultation: clear to auscultation bilaterally Cardio Rate: regular rate Rhythm: regular rhythm Heart sounds: Normal, physiologic split S2 sound present Peripheral pulses: radial pulses present and posterior tibial pulses present GI Inspection: No distended and No Abdominal panniculus present Palpation (GI): Soft to palpation, nontender, no guarding, not rigid and No hepatosplenomegaly present Percussion: Yes normal to percussion Auscultation: normal bowel sounds Rectal Exam - Female: deferred Skin General skin exam: no rashes or lesions noted, turgor normal, skin not dry, no jaundice, No spider nevi and no striae Rashes: no rashes Nails: normal Neuro General: oriented to person, oriented to place and oriented to time Cranial nerves: Yes Equal, round and reactive pupils present and Yes Normal hearing present Speech: No Abnormal speech present Extrem General: Yes normal to inspection, No clubbing, No cyanosis and No edema Psych Appearance: grossly normal and well kempt Mental Status: mental status grossly normal Speech and movement: Normal speech and movement present Affect: normal affect Attitude: cooperative Thought process: Normal thought process present and not confabulating Thought content: Normal thought content present Insight: Limited insight present (Psych) Judgement: Limited judgement present (Psych) Assessment & Plan Assessment & Plan (1) Chronic idiopathic constipation: Code(s): K59.04 - Chronic idiopathic constipation Category: Medical (2) Small bowel motility disorder: Code(s): K59.9 - Functional intestinal disorder, unspecified Category: Medical (3) GERD (gastroesophageal reflux disease): Code(s): K21.9 - Gastro-esophageal reflux disease without esophagitis Category: Medical Plan she feels that the lactulose is still working well for her. She has been taking for tbsp at once once a day. Since lactulose is just a non dissolvable sacral either really isn't dose limit on it so I think will increase this to 4 tbsp twice a day. I also think she should try adding magnesium supplement and I suggest magnesium oxide 500 mg twice a day. She continues on her metoclopramide 10 mg 4 times a day. She continues on a prebiotic fiber as well. She is also continuing on omeprazole for heartburn. Will try this and have her come back in 6 weeks to see how she is doing Medications: New lactulose 30 grams (45 mL) PO BID 3,000 mL 6RF Coding Level of Care Code Est Pt Level 3 (33857) Diagnoses Chronic idiopathic constipation K59.04 Small bowel motility disorder K59.9 GERD (gastroesophageal reflux disease) K21.9
[2024-04-16 14:52] VITALS: BP 114/59; PULSE 78; BMI 28.2
== END 2024-04-16 15:55 | disposition home or self-care (01) ==
PROVIDERS: Visit Provider Nurse Practitioner
DX: K59.04 Chronic idiopathic constipation (principal); K59.9 Functional intestinal disorder, unspecified; K21.9 Gastro-esophageal reflux disease without esophagitis
CPT/HCPCS: 99213

== ENCOUNTER → 2024-04-16 14:22 | Outpatient (BNVA) | payer MEDICARE, SELFPAY | PROVIDERS: Visit Provider Nurse Practitioner | DX: K59.04 Chronic idiopathic constipation (principal); K59.9 Functional intestinal disorder, unspecified; K21.9 Gastro-esophageal reflux disease without esophagitis | CPT/HCPCS: 99212 ==

== ENCOUNTER 2024-05-28 14:27 | Outpatient (AMB) | payer MEDICARE, SELFPAY ==
--- NOTE | 2024-05-28 14:35 | A.OFFVIS_ITS ---
Vital Signs 05/28/24 14:38 Height 5 ft 6 in BP 118/66 Blood Pressure Location Lt brachial Position Sitting Pulse 68 Intake Visit Reasons: CIC 6 wks Intake Note: Tammi presents in the office in 6 weeks follow up of CIC. 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 Accompanied by: Self / Same As Patient Allergies cephalexin [From Keflex] Allergy (Verified 06/24/24 11:35) Rash doxycycline Allergy (Verified 06/24/24 11:35) Unknown levofloxacin [From Levaquin] Allergy (Verified 06/24/24 11:35) Unknown bisacodyl [From Dulcolax (bisacodyl)] Adverse Reaction (Intermediate, Verified 06/24/24 11:35) Nausea HPI HPI CIC 6 wks: Details: Assessment & Plan (1) Chronic idiopathic constipation: Code(s): K59.04 - Chronic idiopathic constipation Category: Medical (2) Small bowel motility disorder: Code(s): K59.9 - Functional intestinal disorder, unspecified Category: Medical (3) GERD (gastroesophageal reflux disease): Code(s): K21.9 - Gastro-esophageal reflux disease without esophagitis Category: Medical Plan she feels that the lactulose is still working well for her. She has been taking for tbsp at once once a day. Since lactulose is just a non dissolvable sacral either really isn't dose limit on it so I think will increase this to 4 tbsp twice a day. I also think she should try adding magnesium supplement and I suggest magnesium oxide 500 mg twice a day. She continues on her metoclopramide 10 mg 4 times a day. She continues on a prebiotic fiber as well. She is also continuing on omeprazole for heartburn. Will try this and have her come back in 6 weeks to see how she is doing Medications: New lactulose 30 grams (45 mL) PO BID 3,000 mL 6RF COLONOSCOPY Patient does not feel she can prep so? If this can be done going forward BIOPSY Medications: New metoclopramide HCl (Reglan) 10 mg PO QIDACHS 120 tabs 6RF K59.04 - Chronic idiopathic constipation, K59.9 - Functional intestinal disorder, unspecified TODAY'S VISIT She is on magnesium oxide 800mg /day in divided doses and her jeane fiber. But it is now ceasing to work. She continues on omeprazole, metoclopramide, lactulose, MiraLax, Motegrity. She tried going back to Miralax and it did not work, she did not try going back to lactulose. I suggest she do this in the meantime. I can salt up-to-date and some less than usual treatments for chronic constipation that would fallen the generic category could include misoprostol 200 mg once a day increased weekly depending on tolerance and response, or even colchicine 0.6 mg 3 times a day as a starting dose. We will start with misoprostol and see how she tolerates it. I think she should continue her magnesium and of course her high-fiber diet along with this. She also continues the metoclopramide and omeprazole. Return office visit in 2 weeks [facility] Medical History (Updated 06/24/24 @ 11:46 by JAMES Santos) Urinary frequency Arthritis of both knees Arthritis of left knee Arthritis of right knee Osteoarthritis of left knee Osteoarthritis of right knee Surgical History H/O partial thyroidectomy History of left hip replacement History of surgical removal of meniscus of knee H/O esophagogastroduodenoscopy H/O colonoscopy Social History Alcohol intake: never Patient Tobacco Use Status: Never used Tobacco Current occupational status: retired Review of Systems Const Denies fatigue, Denies fever(s), Denies night sweats, Denies poor appetite and Denies weight loss ENT Reports Normal hearing present, Denies dental pain, Denies dysphagia, Denies hearing loss, Denies mouth pain, Denies odynophagia, Denies throat swelling, Denies tongue swelling and Reports other (Dentition adequate) Card Reports no additional complaints Resp Reports no additional complaints GI Details: Denies abdominal pain, Denies melena, Denies bloating, Denies hematochezia, Reports constipation, Denies GI cramping, Denies dysphagia, Denies excessive flatus, Denies early satiety, Reports heartburn, Denies diarrhea, Denies nausea, Denies odynophagia, Denies vomiting and Denies hematemesis Skin/Breast Denies pruritus, Denies lesions, Denies rash and Denies jaundice Neuro Reports Normal hearing present and Denies Abnormal speech present Endo Denies fatigue Aller/Immun Denies throat swelling and Denies tongue swelling Physical Exam Vital Signs: Last Vital Signs Pulse 68 05/28/24 14:38 BP 118/66 05/28/24 14:38 Const General: cooperative, no acute distress, well developed and well groomed Nutritional Appearance: average body habitus and well nourished Orientation/consciousness: oriented to person, oriented to place and oriented to time Limitations: No language barrier HEENT Head: Yes normocephalic and Yes atraumatic Eyes General: appearance normal, both eyes and all related structures Pupils: Equal, round and reactive pupils present Neck Neck: Yes normal visual inspection and Yes no lymphadenopathy Thyroid: Thyroid normal Resp Effort & Inspection: normal respiratory effort and able to speak in complete sentences Auscultation: clear to auscultation bilaterally Cardio Rate: regular rate Rhythm: regular rhythm Heart sounds: Normal, physiologic split S2 sound present Peripheral pulses: radial pulses present and posterior tibial pulses present GI Inspection: No distended and No Abdominal panniculus present Palpation (GI): Soft to palpation, nontender, no guarding, not rigid and No hepatosplenomegaly present Percussion: Yes normal to percussion Auscultation: normal bowel sounds Rectal Exam - Female: deferred Skin General skin exam: no rashes or lesions noted, turgor normal, skin not dry, no jaundice, No spider nevi and no striae Rashes: no rashes Nails: normal Neuro General: oriented to person, oriented to place and oriented to time Cranial nerves: Yes Equal, round and reactive pupils present and Yes Normal hearing present Speech: No Abnormal speech present Extrem General: Yes normal to inspection, No clubbing, No cyanosis and No edema Psych Appearance: grossly normal and well kempt Mental Status: mental status grossly normal Speech and movement: Normal speech and movement present Affect: normal affect Attitude: cooperative Thought process: not confabulating and Perseverating thought process present Thought content: Normal thought content present Insight: Limited insight present (Psych) Judgement: Limited judgement present (Psych) Assessment & Plan Assessment & Plan (1) Chronic idiopathic constipation: Code(s): K59.04 - Chronic idiopathic constipation Category: Medical (2) Small bowel motility disorder: Code(s): K59.9 - Functional intestinal disorder, unspecified Category: Medical (3) GERD (gastroesophageal reflux disease): Code(s): K21.9 - Gastro-esophageal reflux disease without esophagitis Category: Medical (4) Erosive gastritis: Code(s): K29.60 - Other gastritis without bleeding Category: Medical Plan She is on magnesium oxide 800mg /day in divided doses and her jeane fiber. But it is now ceasing to work. She continues on omeprazole, metoclopramide, lactulose, MiraLax, Motegrity. She tried going back to Miralax and it did not work, she did not try going back to lactulose. I suggest she do this in the meantime. I can salt up-to-date and some less than usual treatments for chronic constipation that would fallen the generic category could include misoprostol 200 mg once a day increased weekly depending on tolerance and response, or even colchicine 0.6 mg 3 times a day as a starting dose. We will start with misoprostol and see how she tolerates it. I think she should continue her magnesium and of course her high-fiber diet along with this. She also continues the metoclopramide and omeprazole. Return office visit in 2 week COLONOSCOPY Patient does not feel she can prep so? If this can be done going forward BIOPSY Medications: New misoprostol 200 mcg PO DAILY 30 tabs 3RF K59.04 - Chronic idiopathic constipation, K59.9 - Functional intestinal disorder, unspecified On Hold prucalopride (Motegrity) Hold Comment: Doctor's Order 1 mg PO DAILY 7 tabs 0RF Coding Level of Care Code Est Pt Level 3 (72358) Diagnoses Chronic idiopathic constipation K59.04 Small bowel motility disorder K59.9 GERD (gastroesophageal reflux disease) K21.9 Erosive gastritis K29.60
[2024-05-28 14:38] VITALS: BP 118/66; PULSE 68
== END 2024-05-28 15:45 | disposition home or self-care (01) ==
LOC: HO.HGI 14:27
PROVIDERS: PCP Internal Medicine; Visit Provider Nurse Practitioner
DX: K59.04 Chronic idiopathic constipation (principal); K59.9 Functional intestinal disorder, unspecified; K21.9 Gastro-esophageal reflux disease without esophagitis; K29.60 Other gastritis without bleeding
CPT/HCPCS: 99213

== ENCOUNTER → 2024-05-28 14:27 | Outpatient (BNVA) | payer MEDICARE, SELFPAY | PROVIDERS: PCP Internal Medicine; Visit Provider Nurse Practitioner | DX: K59.04 Chronic idiopathic constipation (principal); K59.9 Functional intestinal disorder, unspecified; K21.9 Gastro-esophageal reflux disease without esophagitis; K29.60 Other gastritis without bleeding | CPT/HCPCS: 99212 ==

== ENCOUNTER 2024-06-24 11:26 | Outpatient (AMB) | payer MEDICARE, SELFPAY ==
[2024-06-24 11:29] VITALS: BP 125/69; PULSE 77
--- NOTE | 2024-06-24 11:29 | MHC.OFFVIS ---
Vital Signs 06/24/24 11:29 Height 5 ft 6 in BP 125/69 Blood Pressure Location Lt brachial Position Sitting Pulse 77 Intake Visit Reasons: 2 week follow up 06/09 Intake Note: Tammi returns to in office 2 weeks follow up of CIC. CC: Patient reports that she is increasing the medication slowly d/t fear to side effects but she has seen some improvement already. 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 Accompanied by: Self / Same As Patient Allergies cephalexin [From Keflex] Allergy (Verified 06/24/24 11:35) Rash doxycycline Allergy (Verified 06/24/24 11:35) Unknown levofloxacin [From Levaquin] Allergy (Verified 06/24/24 11:35) Unknown bisacodyl [From Dulcolax (bisacodyl)] Adverse Reaction (Intermediate, Verified 06/24/24 11:35) Nausea HPI HPI 2 week follow up 06/09: Details: Assessment & Plan (1) Chronic idiopathic constipation: Code(s): K59.04 - Chronic idiopathic constipation Category: Medical (2) Small bowel motility disorder: Code(s): K59.9 - Functional intestinal disorder, unspecified Category: Medical (3) GERD (gastroesophageal reflux disease): Code(s): K21.9 - Gastro-esophageal reflux disease without esophagitis Category: Medical (4) Erosive gastritis: Code(s): K29.60 - Other gastritis without bleeding Category: Medical Medications: New misoprostol 200 mcg PO DAILY 30 tabs 3RF K59.04 - Chronic idiopathic constipation, K59.9 - Functional intestinal disorder, unspecified On Hold prucalopride (Motegrity) Hold Comment: Doctor's Order 1 mg PO DAILY 7 tabs 0RF She is on magnesium oxide 800mg /day in divided doses and her jeane fiber. But it is now ceasing to work. She tried going back to Miralax and it did not work, she did not try going back to lactulose. I suggest she do this in the meantime. I can salt up-to-date and some less than usual treatments for chronic constipation that would fallen the generic category could include misoprostol 200 mg once a day increased weekly depending on tolerance and response, or even colchicine 0.6 mg 3 times a day as a starting dose. We will start with misoprostol and see how she tolerates it. I think she should continue her magnesium and of course her high-fiber diet along with this. She also continues the metoclopramide and omeprazole. Return office visit in 2 weeks CORRESPONDENCE On 06/17/24 @ 10:16 Antonietta Cantor Wrote To Antonietta Cantor (2) I am increasing it to 4 times a day. Please tell her to start slowly by starting it twice a day for 3 days, then 3 times a day for 3 days and then 4 times a day. If she increases it to quickly it can cause quite a bit of stomach upset. This is something the body tends to adjust to over time. On 06/12/24 @ 14:46 David Choi Wrote To Antonietta Cantor Tammi Mane would like to know of the Misoprostol 200 MCG's can be increased as she states that the current dose is not helping her. Please advise. TODAYS VISIT At first the misoprostol worked for her bowels, but then is slowed down. I then increased her dose to 200mg qid and she is slowly working up to this dose, she wants to go slow to offset any a/e. She asks if she can take Miralax with this and she can use this or lactulose along with this. ROV 8 weeks [facility] Medical History (Updated 06/24/24 @ 11:46 by JAMES Santos) Urinary frequency Arthritis of both knees Arthritis of left knee Arthritis of right knee Osteoarthritis of left knee Osteoarthritis of right knee Surgical History H/O partial thyroidectomy History of left hip replacement History of surgical removal of meniscus of knee H/O esophagogastroduodenoscopy H/O colonoscopy Social History Alcohol intake: never Patient Tobacco Use Status: Never used Tobacco Current occupational status: retired Review of Systems Const Denies fatigue, Denies fever(s), Denies night sweats, Denies poor appetite and Denies weight loss Eyes Details: Glasses Reports requires corrective lenses ENT Reports Normal hearing present, Denies dental pain, Denies dysphagia, Denies hearing loss, Denies mouth pain, Denies odynophagia, Denies throat swelling, Denies tongue swelling and Reports other (Dentition adequate) Card Reports no additional complaints Resp Reports no additional complaints GI Details: Denies abdominal pain, Denies melena, Reports bloating, Denies hematochezia, Reports constipation, Denies GI cramping, Denies dysphagia, Denies excessive flatus, Denies early satiety, Reports heartburn, Denies diarrhea, Denies nausea, Denies odynophagia, Denies vomiting and Denies hematemesis Skin/Breast Denies pruritus, Denies lesions, Denies rash and Denies jaundice Neuro Reports Normal hearing present and Denies Abnormal speech present Endo Denies fatigue Aller/Immun Denies throat swelling and Denies tongue swelling Physical Exam Vital Signs: Last Vital Signs Pulse 77 06/24/24 11:29 BP 125/69 06/24/24 11:29 Const General: cooperative, no acute distress, well developed and well groomed Nutritional Appearance: well nourished and overweight Orientation/consciousness: oriented to person, oriented to place and oriented to time Limitations: No language barrier HEENT Head: Yes normocephalic and Yes atraumatic Eyes General: appearance normal, both eyes and all related structures Pupils: Equal, round and reactive pupils present Neck Neck: Yes normal visual inspection and Yes no lymphadenopathy Thyroid: Thyroid normal Resp Effort & Inspection: normal respiratory effort and able to speak in complete sentences Auscultation: clear to auscultation bilaterally Cardio Rate: regular rate Rhythm: regular rhythm Heart sounds: Normal, physiologic split S2 sound present Peripheral pulses: radial pulses present and posterior tibial pulses present GI Inspection: No distended and No Abdominal panniculus present Palpation (GI): Soft to palpation, nontender, no guarding, not rigid and No hepatosplenomegaly present Percussion: Yes normal to percussion Auscultation: normal bowel sounds Rectal Exam - Female: deferred Skin General skin exam: no rashes or lesions noted, turgor normal, skin not dry, no jaundice, No spider nevi and no striae Rashes: no rashes Nails: normal Neuro General: oriented to person, oriented to place and oriented to time Cranial nerves: Yes Equal, round and reactive pupils present and Yes Normal hearing present Speech: No Abnormal speech present Extrem General: Yes normal to inspection, No clubbing, No cyanosis and No edema Psych Appearance: grossly normal and well kempt Mental Status: mental status grossly normal Speech and movement: Normal speech and movement present Affect: normal affect Attitude: cooperative Thought process: not confabulating and Perseverating thought process present Thought content: Normal thought content present Insight: Limited insight present (Psych) Judgement: Limited judgement present (Psych) Assessment & Plan Assessment & Plan (1) Chronic idiopathic constipation: Code(s): K59.04 - Chronic idiopathic constipation Category: Medical (2) Small bowel motility disorder: Code(s): K59.9 - Functional intestinal disorder, unspecified Category: Medical (3) Rectocele: Code(s): N81.6 - Rectocele Category: Medical (4) Pelvic floor dysfunction: Code(s): M62.89 - Other specified disorders of muscle Category: Medical (5) GERD (gastroesophageal reflux disease): Code(s): K21.9 - Gastro-esophageal reflux disease without esophagitis Category: Medical (6) Erosive gastritis: Code(s): K29.60 - Other gastritis without bleeding Category: Medical Plan At first the misoprostol worked for her bowels, but then is slowed down. I then increased her dose to 200mg qid and she is slowly working up to this dose, she wants to go slow to offset any a/e. She asks if she can take Miralax with this and she can use this or lactulose along with this. ROV 8 weeks Coding Level of Care Code Est Pt Level 3 (10955) Diagnoses Chronic idiopathic constipation K59.04 Small bowel motility disorder K59.9 Rectocele N81.6 Pelvic floor dysfunction M62.89 GERD (gastroesophageal reflux disease) K21.9 Erosive gastritis K29.60
--- OUTSIDE RECORDS SUMMARY | 2024-06-30 18:08 | XMS_ITS | Data Portability ---
Author Organization [place] [facility] [place] Address [address] [place] [address] Care Team Providers Care Corporate Safety Manager Name Role Phone AlmaFRANCIS NEGRETE Primary Care Provider Assessment Encounter Date Assessment Date Assessment LastModified by Organization Details LastModified Time 10/10/2022 10/10/2022 Ms. Clifford is doing well after undergoing left knee arthroscopic surgery on September 27, 2022. Her sutures were removed and Steri-Strips placed over her incisions. She will gradually progress to activities as tolerated. She will contact me prior to her follow-up appointment in 2 to 3 months should any questions or concerns arise. elaina Not available 10/10/2022 12:42:17 Plan of Treatment Reminders Order Date Submit Date Provider Last Modified By Organization Details Last Modified Time Details Appointments None record ed. Lab None record ed. Referral None record ed. Procedures None record ed. Surgeries None record ed. Imaging None record ed. Medication Orders None record ed. Patient TargetsNo targets recorded. Patient InstructionsNo instructions recorded. Reason for Referral None Reported. Problems Name Problem SNOMED Code Status Onset Date Resolution Date Notes Provider Name and Address Organization Details Recorded Time Pain of left knee joint [id number] 7 Active [address], [place], [address], [place] [facility] 3 11:50:46 Arthritis of knee 237523685 Active [address], [place], [address], [place] [facility] 3 12:42:22 Problem Notes None recorded. Procedures Surgical History Date Name Laterality Status Provider Name and Address Organization Details Recorded Time Hip Surgery completed Elaine Jiménez [facility] 10/10/2022 11:07:06 Knee Surgery completed Elaine Jim[facility]nez [facility] 10/10/2022 11:07:13 Thyroid Surgery completed Elaine Jiménez [facility] 10/10/2022 11:07:30 Imaging Results None recorded. Procedure Notes None recorded. Medical Equipment None Reported. Allergies Allergen ID Allergen Name Allergen Category Reaction Reaction Severity Criticality Documentation Date Start Date Code Code System Note Provider Name and Address Organization Details Recorded Time 726 amoxicill in medicatio n Not available Not available Not available 10/10/2022 723 RxNorm Elaine Jiménez null, [place] [facility] 11:06:23 Medications Name Sig Start Date Stop Date Status Note LastModified by Organization Details LastModified Time venlafaxine ER 75 mg capsule,exte nded release 24 hr TAKE 1 CAPSULE BY MOUTH EVERY DAY active Not Available Not Available No t Available clonazepam 0.5 mg tablet TAKE 1 TO 2 TABLETS BY MOUTH EVERY DAY active Not Available Not Available No t Available venlafaxine ER 150 mg capsule,exte nded release 24 hr TAKE 1 CAPSULE BY MOUTH EVERY DAY active Not Available Not Available No t Available oxycodone-ac etaminophen 5 mg-325 mg tablet TAKE 1 TABLET BY MOUTH EVERY 6 HOURS NEEDED FOR PAIN active Not Available Not Available No t Available famotidine 20 mg tablet TAKE 1 TABLET BY MOUTH TWICE A DAY active Not Available Not Available No t Available metocloprami de 5 mg tablet TAKE 1 TABLET BY MOUTH 3 TIMES A DAY BEFORE MEALS AND TAKE 2 TABLETS AT BEDTIME active Not Available Not Available No t Available triamcinolon e acetonide 0.025 % topical cream APPLY TWICE DAILY TO AFFECTED AREAS ON FACE FOR UP TO 1 WK ON, 1 WK OFF NEEDED FOR SEVERE FLARES active Not Available Not Available No t Available erythromycin 5 mg/gram (0.5 %) eye ointment APPLY 1 APPLICATION INTO THE LEFT EYE TWICE A DAY FOR 7 DAYS active Not Available Not Available N ot Available polymyxin B sulfate 10,000 unit-trimeth oprim 1 mg/mL eye drops APPLY 1 DROPS (OPHTHALMIC (EYE)) EVERY 12 HOURS FOR 7 DAYS active Not Available Not Available No t Available docusate sodium 100 mg capsule TAKE 1 CAPSULE BY MOUTH EVERY DAY WITH FOOD active Not Available Not Available No t Available Senna Laxative 8.6 mg tablet TAKE 2 CAPSULES BY MOUTH 2 TIMES A DAY FOR CONSTIPATIO N FOR 30 DAYS active Not Available Not Available No t Available chlorhexidin e gluconate 0.12 % mouthwash FILL CAP TO FILL LINE. SWISH FOR 30 SECONDS, THEN SPIT OUT. USE AFTER BREAKFAST AND BEFOE BEDTIME active Not Available Not Available No t Available BinaxNOW COVID-19 Ag Self Test kit USE DIRECTED active Not Available Not Available No t Available Vitals None Recorded Social History None recorded. Functional Status None recorded. Mental Status None recorded. Family History Relationship Description Onset Age of this Age Resolved Age Notes LastModified by Organization Details LastModified Time Father Hypertensive disorder [email or web address] Not available 2022 11:06:56 Medical History Condition Response Reflux/GERD Y Gynecological HistoryNo gynecological history recorded. Obstetrics History GPAL:G 0 P 0 0 0 0 Past Encounters Encounter ID Performer Location Encounter Start Date Encounter Closed Date Diagnosis/Indication Diagnosis SNOMED-CT Code Diagnosis ICD10 Code [id number] Julien Hair MD [address] [place] [phone] 10/10/2022 10:57:40 10/10/2022 11:52:01 Pain of left knee joint 8155784805 38459 M25.562 Arthritis of knee 609465 002 M13.869 Health Concerns Section Related Observation LastModified by Organization Detai ls LastModified Time None Recorded Concern Status LastModified by Organization Details LastModified Time None Recorded Advance Directives Directive None Recorded Payers Encounter Date Sequence Insurance Name Policy Number Policy Salcido Covered Member ID Salcido Member ID Guarantor Name 10/10/2022 1 MEDICARE B-CT: NGS Tammi Clifford [id number] Tammi Clifford 10/10/2022 2 [facility] OPTIONS (MEDICARE SUPPLEMENT) Tammi Clifford [id number] Tammi Clifford Notes Date Note Type Note Provider Name and Address Organization Details Recorded Time 10/10/2022 text/html The patient presents for her first postoperative visit after undergoing left knee arthroscopic surgery on September 27, 2022. She reports mild discomfort in her left knee. She is not taking any medicines for her discomfort. She denies any fevers or chills. Julien Hair MD [address], [place], [address], [place] [facility] 10/10/2022 12:42:33 OBGyn Episode No OBEpisode recorded.
== END 2024-06-24 12:51 | disposition home or self-care (01) ==
PROVIDERS: PCP Internal Medicine; Visit Provider Nurse Practitioner
DX: K59.04 Chronic idiopathic constipation (principal); K59.9 Functional intestinal disorder, unspecified; N81.6 Rectocele; M62.89 Other specified disorders of muscle; K21.9 Gastro-esophageal reflux disease without esophagitis; K29.60 Other gastritis without bleeding
CPT/HCPCS: 99213

== ENCOUNTER → 2024-06-24 11:26 | Outpatient (BNVA) | payer MEDICARE, SELFPAY | PROVIDERS: PCP Internal Medicine; Visit Provider Nurse Practitioner | DX: K59.04 Chronic idiopathic constipation (principal); K59.9 Functional intestinal disorder, unspecified; N81.6 Rectocele; M62.89 Other specified disorders of muscle; K21.9 Gastro-esophageal reflux disease without esophagitis; K29.60 Other gastritis without bleeding | CPT/HCPCS: 99212 ==

== ENCOUNTER 2024-10-01 13:14 | Outpatient (AMB) | payer MEDICARE, SELFPAY ==
--- NOTE | 2024-10-01 13:17 | A.OFFVIS_ITS ---
Vital Signs 10/01/24 13:18 Height 5 ft 6 in Weight 175 lb BMI 28.2 Intake Visit Reasons: bilateral knee pains Intake Note: Tammi is a 74 year old female who presents with complaints of progressively worsening bilateral knee pains. She describes her pains as sharp in nature. She has had cortisone injections in the past which gave her minimal relief. She has failed the last 3 months of conservative treatment which has included a home exercise program, Tylenol and anti-inflammatory medicines. She wishes to hold off on surgery if at all possible. Allergies cephalexin [From Keflex] Allergy (Verified 10/01/24 13:18) Rash doxycycline Allergy (Verified 10/01/24 13:18) Unknown levofloxacin [From Levaquin] Allergy (Verified 10/01/24 13:18) Unknown bisacodyl [From Dulcolax (bisacodyl)] Adverse Reaction (Intermediate, Verified 10/01/24 13:18) Nausea Medication List - Last Reconciled 10/01/24 by Julien Hair MD [jeane prebiotic fiber PO DAILY] clonazepam 0.5 mg PO DAILY lactulose 30 grams (45 mL) PO BID magnesium oxide 500 mg PO BID metoclopramide HCl 10 mg PO QID misoprostol 200 mcg PO QID omeprazole 20 mg PO DAILY polyethylene glycol 3350 (Miralax) 17 grams PO BID prucalopride (Motegrity) 1 mg PO DAILY venlafaxine ER 150 mg PO DAILY venlafaxine ER 37.5 mg PO DAILY ON LICENSE OF [facility] Medical History (Updated 10/01/24 @ 13:45 by Julien Hair MD) Osteoarthritis of right knee Osteoarthritis of left knee Urinary frequency Arthritis of both knees Arthritis of left knee Arthritis of right knee Surgical History H/O partial thyroidectomy History of left hip replacement History of surgical removal of meniscus of knee H/O esophagogastroduodenoscopy H/O colonoscopy Social History Alcohol intake: never Patient Tobacco Use Status: Never used Tobacco Current occupational status: retired Physical Exam Vital Signs: BMI result Body Mass Index 28.2 Const Other: Well-nourished well-developed very friendly female awake alert and oriented x3 in no acute distress Extrem Other: Bilateral lower extremity examination shows good capillary refill, no skin lesions noted, normal sensation light touch bilateral knee examination shows minimal effusions, palpable crepitus with range of motion, pain with range of motion, no instability Office Procedures AMB Joint Injection/Aspiration Joint Injection/Aspiration Primary Site: left knee Prep: site was prepped using aseptic technique Injected: 60 mg of ( Durolane viscosupplementation) and 1% plain lidocaine Procedure: The patient tolerated the procedure well Coding - Large joint Procedure code (CPT) selection complete AMB Joint Injection/Aspiration Joint Injection/Aspiration Primary Site: right knee Prep: site was prepped using aseptic technique Injected: 60 mg of ( Durolane viscosupplementation) and 1% plain lidocaine Procedure: The patient tolerated the procedure well Coding - Large joint Procedure code (CPT) selection complete Results Reviewed Results Reviewed: x-rays of the patient's bilateral knees taken previously show joint space narrowing, subchondral sclerosis, no acute bony abnormalities Assessment & Plan Assessment & Plan (1) Osteoarthritis of left knee: Code(s): M17.12 - Unilateral primary osteoarthritis, left knee Category: Medical (2) Osteoarthritis of right knee: Code(s): M17.11 - Unilateral primary osteoarthritis, right knee Category: Medical Plan Ms. Clifford Presents with progressively worsening bilateral knee pains due to osteoarthritis. The risks and benefits of bilateral knee Durolane viscosupplementation injections were discussed at length with the patient. The patient wished to proceed. She tolerated the injections well. She will continue with her home exercise program. She will contact me prior to her follow-up appointment in 3 months should any questions or concerns arise. Feel free to call me at any time should questions regarding her orthopedic management arise. I spent 20 minutes in reviewing the patient's records and imaging studies, seeing the patient and documenting in the medical record. Orders: Orders AMB Joint Injection/Aspiration Today M17.11 - Unilateral primary osteoarthritis, right knee AMB Joint Injection/Aspiration Today M17.12 - Unilateral primary osteoarthritis, left knee Coding Level of Care Code Est Pt Level 3 (66656) Complex EM visit Add On G2211 Diagnoses Osteoarthritis of left knee M17.12 Osteoarthritis of right knee M17.11 CPT Codes Coding - Large joint: 53355 - Large joint ([id number]) Coding - Large joint: - Large joint ([id number])
[2024-10-01 13:18] VITALS: BMI 28.2
--- OUTSIDE RECORDS SUMMARY | 2024-10-01 16:44 | XMS_ITS | Clinical Summary ---
Author Organization [facility] Address [address] [place] [address] Care Team Providers Care Sales Solutions Associate Name Role Phone Hugo Quintero MD Primary Care Provider [phone] Allergies Active Allergy Reactions Criticality Noted Date Comments Amoxicillin Other (See Comments) 07/25/2010 Cephalexin 02/20/2017 Molds & Smuts 02/20/2017 Medications Medication Sig Dispensed Refills Start Date End Date Status ESTRACE VAGINAL 0.1 MG/GM vaginal cream USE 3-4 GRAMS VAGINALLY 3 TIMES A WEEK 4 01/30/2017 Active famotidine (PEPCID) 40 MG tablet TAKE ONE TABLET BY MOUTH ONCE A DAY AT BEDTIME 3 01/12/2017 Active venlafaxine (EFFEXOR) 25 MG tablet Take 25 mg by mouth 2 (two) times a day. 0 Active clonazePAM (KLONOPIN) 0.25 mg split tablet Take 0.5 mg by mouth 2 (two) times a day as needed for anxiety. 0 Active desonide (DESOWEN) 0.05 % cream Apply topically 2 (two) times a day. 0 Active pantoprazole (PROTONIX) 40 MG tablet 0 02/22/2017 Active venlafaxine (EFFEXOR-XR) 150 MG 24 hr capsule 0 02/27/2017 Active Cholecalciferol (Delta D3) 10 MCG (400 UNIT) TABS VITAMIN D3 (CHOLECALCIFEROL) 400 UNIT TABLET; Dose: 800 UNITS; Form: Take 2 TABLET; Route: PO; Frequency: Q24H; Directions: Not available; Details: Dispense: Tablet(s); Taking; Status: Active; Source: SYDNEY CHU M.D.; Date: 07/30/2012 0 07/30/2012 Active Omeprazole 20 MG TBEC Take 20 mg by mouth. 0 09/12/2017 Active traMADol (ULTRAM) 50 MG tablet Take 1 tab every 8 hours as needed for pain 90 tablet 0 09/14/2020 Active HYDROcodone-acetamin ophen (NORCO) 5-325 MG per tablet Take 1 tab every 12 hours as needed for pain 30 tablet 0 10/26/2020 Active hydroxychloroquine (PLAQUENIL) 200 MG tablet Take 200 mg by mouth 2 (two) times a day. 0 06/09/2021 Active metoclopramide (REGLAN) tablet 5 mg TAKE 1 TABLET BY MOUTH 4 TIMES A DAY BEFORE MEAL/BED 0 07/17/2022 Active Active Problems Problem Noted Date Diagnosed Date Arthritis of right knee 02/20/2017 Family History Medical History Relation Name Comments Heart disease Father Hypertension Father Relation Name Status Comments Father Social History Tobacco Use Types Packs/Day Years Used Date Smoking Tobacco: Former Alcohol Use Standard Drinks/Week Comments No 0 (1 standard drink = 0.6 oz pur e alcohol) Sex and Gender Information Value Date Recorded Sex Assigned at Not on file Gender Identity Not on file Sexual Orientation Not on file Job Start Date Occupation Industry Not on file Not on file Not on file Last Filed Vital Signs Vital Sign Reading Time Taken Comments Blood Pressure - - Pulse - - Temperature - - Respiratory Rate - - Oxygen Saturation - - Inhaled Oxygen Concentration - - Weight - - Height 167.6 cm (5' 6 ) 02/20/2017 3:06 PM EDT Body Mass Index - - Plan of Treatment Health Maintenance Due Date Last Done Comments Hepatitis C Screening 1950 Depression Screening 1964 Preventative Health Evaluation 01/08/1970 DTap / Tdap / Td (1 - Tdap) 01/08/1971 Colon Cancer Screening (Colonoscopy) 01/08/1997 Breast Cancer Screening (Mammogram) 01/08/2002 Shingrix-Zoster Vaccine (1 o f 2) 01/08/2002 Fall Risk Assessment 01/08/2017 Osteoporosis Screening (DEXA Scan) 01/08/2017 COVID-19 Vaccine (3 - 2023-2 5 season) 2024 10/19/2020, 09/28/2020 Influenza Vaccine (#1) 2024 , 09/02/2017 RSV Adult > 60+ Yrs or (1 - 1-dose 75+ series) 01/08/2027 Pneumococcal Vaccine Completed 05/25/2020, 03/26/2018 Hepatitis B Vaccines Aged Out No long er eligible based on patient's age to complete this topic RSV Ped < 20 months Aged Out No longe r eligible based on patient's age to complete this topic Care Teams Sales Solutions Associate Relationship Specialty Start Date End Date Hugo Quintero MD PCP - General Internal Medicine 02/11/17
--- OUTSIDE RECORDS SUMMARY | 2024-10-01 16:44 | XMS_ITS | Data Portability ---
Author Organization [place] [facility] [place] Address [address] [place] [address] Care Team Providers Care Baggagemaster Name Role Phone AlmaFRANCIS NEGRETE Primary Care [...] Recorded Time Pain of left knee joint 60885540215574 7 Active [address], [place], [address], [place] [facility] 3 11:50:46 Arthritis of knee 911400900 Active [address], [place], [address], [place] [facility] 3 12:42:22 Problem Notes None recorded. Procedures Surgical History Date Name Laterality Status Provider Name and Address Organization Details Recorded Time Hip Surgery completed Elaine Jiménez [facility] 10/10/2022 11:07:06 Knee Surgery completed Elaine Jim[facility]nez [facility] 10/10/2022 11:07:13 Thyroid Surgery completed Elaine Jiménez [facility] 10/10/2022 11:07:30 Imaging Results None recorded. Procedure Notes None recorded. Medical Equipment None Reported. Allergies Allergen ID Allergen Name Allergen Category Reaction Reaction Severity Criticality Documentation Date Start Date Code Code System Note Provider Name and Address Organization Details Recorded Time 726 amoxicill in medicatio n Not available Not available Not available 10/10/2022 723 RxNorm Elaine Jiménez null, [place] [facility] 11:06:23 Medications Name Sig Start Date [...] Diagnosis/Indication Diagnosis SNOMED-CT Code Diagnosis ICD10 Code Diagnosis Note 1523 Julien Hair MD [address] [place] [phone] 10/10/2022 10:57:40 10/10/2022 11:52:01 Pain of left knee joint [id number] 28989 M25.562 Arthritis of knee 727318 002 M13.869 Health Concerns Section Related Observation LastModified by Organization Detai ls LastModified Time None Recorded Concern Status LastModified by Organization Details LastModified Time None Recorded Advance Directives Directive None Recorded Payers Encounter Date Sequence Insurance Name Policy Number Policy Salcido Covered Member ID Salcido Member ID Guarantor Name 10/10/2022 1 MEDICARE B-CT: NGS Tammi Clifford [id number] Tammi Clifford 10/10/2022 2 [employer] OPTIONS (MEDICARE SUPPLEMENT) Tammi Clifford [id number] Tammi Clifford Notes Date Note Type Note [...] Julien Hair MD [address], [place], [address], [place] [facility] 10/10/2022 12:42:33 OBGyn Episode No OBEpisode recorded.
--- OUTSIDE RECORDS SUMMARY | 2024-10-01 16:44 | XMS_ITS ---
Author Name [facility] Organization Unknown Care Team Organization Name Specialty Phone Email Start Date End [facility] te [facility] DEUCE YOU Primary Care 06/21/2022 03/09/2024
== END 2024-10-01 13:46 | disposition home or self-care (01) ==
LOC: HO.HOS 13:15
PROVIDERS: PCP Internal Medicine; Visit Provider Orthopaedic Surgery
DX: M17.0 Bilateral primary osteoarthritis of knee (principal)
CPT/HCPCS: 20610; 99213

== ENCOUNTER → 2024-10-01 13:14 | Outpatient (BNVA) | payer MEDICARE, SELFPAY | PROVIDERS: PCP Internal Medicine; Visit Provider Orthopaedic Surgery | DX: M17.0 Bilateral primary osteoarthritis of knee (principal) | CPT/HCPCS: 20610; 99212; J2003; J7318 ==

== ENCOUNTER 2024-10-21 14:16 | Outpatient (AMB) | payer MEDICARE, SELFPAY ==
--- NOTE | 2024-10-21 14:22 | A.OFFVIS_ITS ---
Vital Signs 10/21/24 14:45 Height 5 ft 6 in BP 109/63 Blood Pressure Location Lt brachial Position Sitting Pulse 75 Intake Visit Reasons: 8 week follow up r/s 08/19 Allergies cephalexin [From Keflex] Allergy (Verified 10/01/24 13:18) Rash doxycycline Allergy (Verified 10/01/24 13:18) Unknown levofloxacin [From Levaquin] Allergy (Verified 10/01/24 13:18) Unknown bisacodyl [From Dulcolax (bisacodyl)] Adverse Reaction (Intermediate, Verified 10/01/24 13:18) Nausea HPI HPI 8 week follow up r/s 08/19: Details: Assessment & Plan (1) Chronic idiopathic constipation: Code(s): K59.04 - Chronic idiopathic constipation Category: Medical (2) Small bowel motility disorder: Code(s): K59.9 - Functional intestinal disorder, unspecified Category: Medical (3) Rectocele: Code(s): N81.6 - Rectocele Category: Medical (4) Pelvic floor dysfunction: Code(s): M62.89 - Other specified disorders of muscle Category: Medical (5) GERD (gastroesophageal reflux disease): Code(s): K21.9 - Gastro-esophageal reflux disease without esophagitis Category: Medical (6) Erosive gastritis: Code(s): K29.60 - Other gastritis without bleeding Category: Medical Plan At first the misoprostol worked for her bowels, but then is slowed down. I then increased her dose to 200mg qid and she is slowly working up to this dose, she wants to go slow to offset any a/e. She asks if she can take Miralax with this and she can use this or lactulose along with this. ROV 8 weeks CORRESPONDENCE On 06/17/24 @ 10:16 Antonietta Cantor Wrote To SakshiAntonietta (2) I am increasing it to 4 times a day. Please tell her to start slowly by s tarting it twice a day for 3 days, then 3 times a day for 3 days and then 4 times a day. If she increases it to quickly it can cause quite a bit of stomach upset. This is something the body tends to adjust to over time. On 06/12/24 @ 14:46 David Choi Wrote To SakshiOctober OctoberTammi would like to know of the Misoprostol 200 MCG's can be increased as she states that the current dose is not helping her. Please advise. TODAY'S VISIT She has kept a bowel log, and she is going every day if she follows the regimen. She takes 2 of the misoprostal bid instead of qid. We discuss fiber supplements since she c/o gaining weight with the fiber of all those carbs. ROV 2 mos. [facility] Medical History (Updated 10/01/24 @ 13:45 by Julien Hair MD) Osteoarthritis of right knee Osteoarthritis of left knee Urinary frequency Arthritis of both knees Arthritis of left knee Arthritis of right knee Surgical History H/O partial thyroidectomy History of left hip replacement History of surgical removal of meniscus of knee H/O esophagogastroduodenoscopy H/O colonoscopy Social History Alcohol intake: never Patient Tobacco Use Status: Never used Tobacco Current occupational status: retired Review of Systems Const Denies fatigue, Denies fever(s), Denies night sweats, Denies poor appetite, Reports weight gain and Denies weight loss Eyes Details: Glasses Reports requires corrective lenses ENT Reports Normal hearing present, Denies dental pain, Denies dysphagia, Denies hearing loss, Denies mouth pain, Denies odynophagia, Denies throat swelling, Denies tongue swelling and Reports other (Dentition adequate) Card Reports no additional complaints Resp Reports no additional complaints GI Details: Denies abdominal pain, Denies melena, Denies bloating, Denies hematochezia, Reports constipation, Denies GI cramping, Denies dysphagia, Denies excessive flatus, Denies early satiety, Reports heartburn, Denies diarrhea, Denies nausea, Denies odynophagia, Denies vomiting and Denies hematemesis Skin/Breast Denies pruritus, Denies lesions, Denies rash and Denies jaundice Neuro Reports Normal hearing present and Denies Abnormal speech present Endo Denies fatigue Aller/Immun Denies throat swelling and Denies tongue swelling Physical Exam Vital Signs: Last Vital Signs Pulse 75 10/21/24 14:45 BP 109/63 10/21/24 14:45 Const General: cooperative, no acute distress, well developed and well groomed Nutritional Appearance: average body habitus and well nourished Orientation/consciousness: oriented to person, oriented to place and oriented to time Limitations: No language barrier HEENT Head: Yes normocephalic and Yes atraumatic Eyes General: appearance normal, both eyes and all related structures Pupils: Equal, round and reactive pupils present Neck Neck: Yes normal visual inspection and Yes no lymphadenopathy Thyroid: Thyroid normal Resp Effort & Inspection: normal respiratory effort and able to speak in complete sentences Auscultation: clear to auscultation bilaterally Cardio Rate: regular rate Rhythm: regular rhythm Heart sounds: Normal, physiologic split S2 sound present Peripheral pulses: radial pulses present and posterior tibial pulses present GI Inspection: No distended and No Abdominal panniculus present Palpation (GI): Soft to palpation, nontender, no guarding, not rigid and No hepatosplenomegaly present Percussion: Yes normal to percussion Auscultation: normal bowel sounds Rectal Exam - Female: deferred Skin General skin exam: no rashes or lesions noted, turgor normal, skin not dry, no jaundice, No spider nevi and no striae Rashes: no rashes Nails: normal Neuro General: oriented to person, oriented to place and oriented to time Cranial nerves: Yes Equal, round and reactive pupils present and Yes Normal he aring present Speech: No Abnormal speech present Extrem General: Yes normal to inspection, No clubbing, No cyanosis and No edema Psych Appearance: grossly normal and well kempt Mental Status: mental status grossly normal Speech and movement: Normal speech and movement present Affect: Anxious affect present Attitude: cooperative Thought process: Normal thought process present and not confabulating Thought content: Normal thought content present Insight: Fair insight present (Psych) and Limited insight present (Psych) Judgement: Fair judgement present (Psych) and Limited judgement present (Psych) Assessment & Plan Assessment & Plan (1) Chronic idiopathic constipation: Code(s): K59.04 - Chronic idiopathic constipation Category: Medical (2) Erosive gastritis: Code(s): K29.60 - Other gastritis without bleeding Category: Medical (3) GERD (gastroesophageal reflux disease): Code(s): K21.9 - Gastro-esophageal reflux disease without esophagitis Category: Medical Plan She has kept a bowel log, and she is going every day if she follows the regimen. She takes 2 of the misoprostal bid instead of qid. We discuss fiber supplements since she c/o gaining weight with the fiber of all those carbs. ROV 2 mos. Medications: Changed From misoprostol 200 mcg PO QID 120 tabs 3RF K59.04 - Chronic idiopathic constipation, K59.9 - Functional intestinal disorder, unspecified To misoprostol 400 mcg (2 x 200 mcg) PO BID 120 tabs 3RF K59.04 - Chronic idiopathic constipation, K59.9 - Functional intestinal disorder, unspecified Refilled omeprazole 20 mg PO DAILY 30 caps 6RF misoprostol 200 mcg PO QID 120 tabs 3RF K59.04 - Chronic idiopathic constipation, K59.9 - Functional intestinal disorder, unspecified metoclopramide HCl 10 mg PO QID 120 tabs 6RF K59.04 - Chronic idiopathic constipation, K59.9 - Functional intestinal disorder, unspecified polyethylene glycol 3350 (Miralax) 17 grams PO BID 100 ea 6RF Discontinued lactulose Discontinued Reason: Doctor's Order 30 grams (45 mL) PO BID 3,000 mL 6RF prucalopride (Motegrity) Discontinued Reason: Change Referral Type 1 mg PO DAILY 7 tabs 0RF Coding Level of Care Code Est Pt Level 3 (08741) Diagnoses Chronic idiopathic constipation K59.04 Erosive gastritis K29.60 GERD (gastroesophageal reflux disease) K21.9
[2024-10-21 14:45] VITALS: BP 109/63; PULSE 75
--- OUTSIDE RECORDS SUMMARY | 2024-10-21 17:03 | XMS_ITS | Clinical Summary ---
Author Organization [facility] Address [address] [place], [place] [id number] Care Team Providers Care Supervisor Farm Equipment Maintenance Name Role Phone Hugo Quintero MD Primary Care Provider [phone] Allergies Active Allergy Reactions Criticality Noted Date [...] age to complete this topic Care Teams Supervisor Farm Equipment Maintenance Relationship Specialty Start Date End Date Hugo Quintero MD PCP - General Internal Medicine 02/11/17
--- OUTSIDE RECORDS SUMMARY | 2024-10-21 17:03 | XMS_ITS | Data Portability ---
Author Organization [place] [facility] [place] Address [address] [place] [address] Care Team Providers Care Direct Marketing Representative Name Role Phone AlmaFRANCIS NEGRETE Primary Care Provider [phone] Assessment Encounter Date Assessment Date Assessment LastModified [...] Recorded Time Pain of left knee joint [id number] 7 Active [address], [place], [address], [place] [facility] 3 11:50:46 Arthritis of knee 308689348 Active [address], [place], [address], [place] [facility] 3 12:42:22 Problem Notes None recorded. Procedures Surgical History Date Name Laterality Status Provider Name and Address Organization Details Recorded Time Hip Surgery completed Elaine Jim[facility]nez [facility] 10/10/2022 11:07:06 Knee Surgery completed Elaine Jim[facility]nez [facility] 10/10/2022 11:07:13 Thyroid Surgery completed Elaine Jiménez [facility] 10/10/2022 11:07:30 Imaging Results None recorded. Procedure Notes None recorded. Medical Equipment None Reported. Allergies Allergen ID Allergen Name Allergen Category Reaction Reaction Severity Criticality Documentation Date Start Date Code Code System Note Provider Name and Address Organization Details Recorded Time 726 amoxicill in medicatio n Not available Not available Not available 10/10/2022 723 RxNorm Elaine Jiménez null, [place] [facility] 11:06:23 Medications Name Sig Start Date [...] Code Diagnosis Note 1523 Julien Hair MD [address] [place] [id number] 10/10/2022 10:57:40 10/10/2022 11:52:01 Pain of left knee joint [id number] 55800 M25.562 Arthritis of knee 374084 002 M13.869 Health Concerns Section Related Observation LastModified by Organization Detai ls LastModified Time None Recorded Concern Status LastModified by Organization Details LastModified Time None Recorded Advance Directives Directive None Recorded Payers Encounter Date Sequence Insurance Name Policy Number Policy Salcido Covered Member ID Salcido Member ID Guarantor Name 10/10/2022 1 MEDICARE B-CT: NGS Tammi Clifford [id number] Tammi Clifford 10/10/2022 2 [employer] (MEDICARE SUPPLEMENT) Tammi Clifford [id number] Tammi Clifford Notes Date Note Type Note [...] Julien Hair MD [address], [place], [address], [facility] 10/10/2022 12:42:33 OBGyn Episode No OBEpisode recorded.
== END 2024-10-21 15:18 | disposition home or self-care (01) ==
LOC: HO.HGI 14:16
PROVIDERS: PCP Internal Medicine; Visit Provider Nurse Practitioner
DX: K59.04 Chronic idiopathic constipation (principal); K29.60 Other gastritis without bleeding; K21.9 Gastro-esophageal reflux disease without esophagitis
CPT/HCPCS: 99213

== ENCOUNTER → 2024-10-21 14:16 | Outpatient (BNVA) | payer MEDICARE, SELFPAY | PROVIDERS: PCP Internal Medicine; Visit Provider Nurse Practitioner | DX: K59.04 Chronic idiopathic constipation (principal); K29.60 Other gastritis without bleeding; K21.9 Gastro-esophageal reflux disease without esophagitis | CPT/HCPCS: 99212 ==

== ENCOUNTER 2024-12-23 13:12 | Outpatient (AMB) | payer MEDICARE, SELFPAY ==
--- NOTE | 2024-12-23 13:24 | A.OFFVIS_ITS ---
Vital Signs 12/23/24 13:31 Height 5 ft 6 in BP 118/50 L Blood Pressure Location Rt brachial Position Sitting Pulse 84 Pulse Source Pulse Oximeter Pulse Oximetry (%) 96 Oxygen Delivery Method Room Air Comment Pt refused weight today. Intake Visit Reasons: 2 MO F/U [facility] Intake Note: Established patient for mgmt of [facility]. CC; C/O misoprostol, ? lack of therapeutic effect. Pt states that she feels her condition is regressing back to its previous state despite the Rx. Pt is hoping to discuss possible alternatives. No additional sx or concerns at this time. Synthetic Staple Extruder Required: No Accompanied by: Self / Same As Patient Allergies cephalexin [From Keflex] Allergy (Verified 12/23/24 13:24) Rash doxycycline Allergy (Verified 12/23/24 13:24) Unknown levofloxacin [From Levaquin] Allergy (Verified 12/23/24 13:24) Unknown bisacodyl [From Dulcolax (bisacodyl)] Adverse Reaction (Intermediate, Verified 12/23/24 13:24) Nausea HPI HPI 2 MO F/U [facility]: Details: Assessment & Plan (1) Chronic idiopathic constipation: Code(s): K59.04 - Chronic idiopathic constipation Category: Medical (2) Erosive gastritis: Code(s): K29.60 - Other gastritis without bleeding Category: Medical (3) GERD (gastroesophageal reflux disease): Code(s): K21.9 - Gastro-esophageal reflux disease without esophagitis Category: Medical Plan She has kept a bowel log, and she is going every day if she follows the regimen. She takes 2 of the misoprostal bid instead of qid. We discuss fiber supplements since she c/o gaining weight with the fiber of all those carbs. ROV 2 mos. Medications: Changed From misoprostol 200 mcg PO QID 120 tabs 3RF K59.04 - Chronic idiopathic constipation, K59.9 - Functional intestinal disorder, unspecified To misoprostol 400 mcg (2 x 200 mcg) PO BID 120 tabs 3RF K59.04 - Chronic idiopathic constipation, K59.9 - Functional intestinal disorder, unspecified Refilled omeprazole 20 mg PO DAILY 30 caps 6RF misoprostol 200 mcg PO QID 120 tabs 3RF K59.04 - Chronic idiopathic constipation, K59.9 - Functional intestinal disorder, unspecified metoclopramide HCl 10 mg PO QID 120 tabs 6RF K59.04 - Chronic idiopathic constipation, K59.9 - Functional intestinal disorder, unspecified polyethylene glycol 3350 (Miralax) 17 grams PO BID 100 ea 6RF Discontinued lactulose Discontinued Reason: Doctor's Order 30 grams (45 mL) PO BID 3,000 mL 6RF prucalopride (Motegrity) Discontinued Reason: Change Referral Type 1 mg PO DAILY 7 tabs 0RF TODAY'S VISIT She is having dim effect of the miso 2 qam and 1.5 qpm with miralax double dose. BUT if she takes 2 bid miso has water - she feels this may be r/t the miralax. Tolerating the miso. Will back off of of miralax and go to miso 2 bid. Will make avail mis 2 tabs tid in case dose not work. ROV 6 weeks. [facility] Medical History Osteoarthritis of right knee Osteoarthritis of left knee Urinary frequency Arthritis of both knees Arthritis of left knee Arthritis of right knee Surgical History H/O partial thyroidectomy History of left hip replacement History of surgical removal of meniscus of knee H/O esophagogastroduodenoscopy H/O colonoscopy Social History Alcohol intake: never Patient Tobacco Use Status: Never used Tobacco Current occupational status: retired Review of Systems Const Denies fatigue, Denies fever(s), Denies night sweats, Denies poor appetite and Denies weight loss ENT Reports Normal hearing present, Denies dental pain, Denies dysphagia, Denies hearing loss, Denies mouth pain, Denies odynophagia, Denies throat swelling, Denies tongue swelling and Reports other (Dentition adequate) Card Reports no additional complaints Resp Reports no additional complaints GI Details: Denies abdominal pain, Denies melena, Denies bloating, Denies hematochezia, Reports constipation, Denies GI cramping, Denies dysphagia, Denies excessive flatus, Denies early satiety, Denies heartburn, Denies diarrhea, Denies nausea, Denies odynophagia, Denies vomiting and Denies hematemesis Skin/Breast Denies pruritus, Denies lesions, Denies rash and Denies jaundice Neuro Reports Normal hearing present and Denies Abnormal speech present Endo Denies fatigue Aller/Immun Denies throat swelling and Denies tongue swelling Physical Exam Vital Signs: Last Vital Signs Pulse 84 12/23/24 13:31 BP 118/50 L 12/23/24 13:31 Pulse Ox 96 12/23/24 13:31 Oxygen Delivery Method Room Air 12/23/24 13:31 Const General: cooperative, no acute distress, well developed and well groomed Nutritional Appearance: average body habitus and well nourished Orientation/consciousness: oriented to person, oriented to place and oriented to time Limitations: No language barrier HEENT Head: Yes normocephalic and Yes atraumatic Eyes General: appearance normal, both eyes and all related structures Pupils: Equal, round and reactive pupils present Neck Neck: Yes normal visual inspection and Yes no lymphadenopathy Thyroid: Thyroid normal Resp Effort & Inspection: normal respiratory effort and able to speak in complete sentences Auscultation: clear to auscultation bilaterally Cardio Rate: regular rate Rhythm: regular rhythm Heart sounds: Normal, physiologic split S2 sound present Peripheral pulses: radial pulses present and posterior tibial pulses present GI Inspection: No distended and No Abdominal panniculus present Palpation (GI): Soft to palpation, nontender, no guarding, not rigid and No hepatosplenomegaly present Percussion: Yes normal to percussion Auscultation: normal bowel sounds Rectal Exam - Female: deferred Skin General skin exam: no rashes or lesions noted, turgor normal, skin not dry, no jaundice, No spider nevi and no striae Rashes: no rashes Nails: normal Neuro General: oriented to person, oriented to place and oriented to time Cranial nerves: Yes Equal, round and reactive pupils present and Yes Normal hearing present Speech: No Abnormal speech present Extrem General: Yes normal to inspection, No clubbing, No cyanosis and No edema Psych Appearance: grossly normal and well kempt Mental Status: mental status grossly normal Speech and movement: Normal speech and movement present Affect: normal affect Attitude: cooperative Thought process: Normal thought process present and not confabulating Thought content: Normal thought content present Insight: Limited insight present (Psych) Judgement: Limited judgement present (Psych) Assessment & Plan Assessment & Plan (1) Chronic idiopathic constipation: Code(s): K59.04 - Chronic idiopathic constipation Category: Medical (2) Small bowel motility disorder: Code(s): K59.9 - Functional intestinal disorder, unspecified Category: Medical (3) GERD (gastroesophageal reflux disease): Code(s): K21.9 - Gastro-esophageal reflux disease without esophagitis Category: Medical Plan She is having dim effect of the miso 2 qam and 1.5 qpm with miralax double dose. BUT if she takes 2 bid miso has water - she feels this may be r/t the miralax. Tolerating the miso. Will back off of of miralax and go to miso 2 bid. Will make avail mis 2 tabs tid in case dose not work. She continues on her metoclopramide 10 mg 4 times a day. We briefly consider a trial of colchicine but we have decided on the above plan instead as colchicine as sometimes used off-label for constipation. ROV 6 weeks. Orders: Orders Comprehensive Met. Panel Today K59.04 - Chronic idiopathic constipation Medications: Changed From misoprostol 400 mcg (2 x 200 mcg) PO BID 120 tabs 3RF K59.04 - Chronic idiopathic constipation, K59.9 - Functional intestinal disorder, unspecified To misoprostol 400 mcg (2 x 200 mcg) PO TID 180 tabs 3RF K59.04 - Chronic idiopathic constipation, K59.9 - Functional intestinal disorder, unspecified Coding Level of Care Code Est Pt Level 3 (51848) Diagnoses Chronic idiopathic constipation K59.04 Small bowel motility disorder K59.9 GERD (gastroesophageal reflux disease) K21.9
[2024-12-23 13:31] VITALS: BP 118/50; PULSE 84; O2SAT 96
--- OUTSIDE RECORDS SUMMARY | 2024-12-23 13:31 | XMS_ITS | Data Portability ---
Author Organization [facility] Address [address] [place] [address] Care Team Providers Care Copier Operator Name Role Phone AlmaFRANCIS NEGRETE Primary Care Provider [phone] Assessment Encounter Date Assessment Date Assessment LastModified [...] Recorded Time Pain of left knee joint [id number] 7 Active [address], [place], [address], [place] [facility] 3 11:50:46 Arthritis of knee 759371022 Active [address], [place], [address], [place] [facility] 3 12:42:22 Problem Notes None recorded. Procedures Surgical History Date Name Laterality Status Provider Name and Address Organization Details Recorded Time Hip Surgery completed Elaine Jiménez [facility] 10/10/2022 11:07:06 Knee Surgery completed Elaine Jim[facility]nez [facility] 10/10/2022 11:07:13 Thyroid Surgery completed Elaine Jiménez [facility] 10/10/2022 11:07:30 Imaging Results None recorded. Procedure Notes None recorded. Medical Equipment None Reported. Allergies Allergen ID Allergen Name Allergen Category Reaction Reaction Severity Criticality Documentation Date Start Date Code Code System Note Provider Name and Address Organization Details Recorded Time 726 amoxicill in medicatio n Not available Not available Not available 10/10/2022 723 RxNorm Elaine Jiménez null, [facility] 11:06:23 Medications Name Sig Start Date [...] Code Diagnosis Note 1523 Julien Hair MD [address] [place] [phone] 10/10/2022 10:57:40 10/10/2022 11:52:01 Pain of left knee joint [id number] 74002 M25.562 Arthritis of knee 322683 002 M13.869 Health Concerns Section Related Observation LastModified by Organization Detai ls LastModified Time None Recorded Concern Status LastModified by Organization Details LastModified Time None Recorded Advance Directives Directive None Recorded Payers Encounter Date Sequence Insurance Name Policy Number Policy Salcido Covered Member ID Salcido Member ID Guarantor Name 10/10/2022 1 MEDICARE B-CT: NGS Tammi Clifford [id number] Tammi Clifford 10/10/2022 2 [employer] (MEDICARE SUPPLEMENT) Tammi Clifford [id number] Tammi Clifford Notes Date Note Type Note [...] Julien Hair MD [address], [place], [address], [facility] 10/10/2022 12:42:33 OBGyn Episode No OBEpisode recorded.
== END 2024-12-23 14:58 | disposition home or self-care (01) ==
PROVIDERS: PCP Internal Medicine; Visit Provider Nurse Practitioner
DX: K59.04 Chronic idiopathic constipation (principal); K59.9 Functional intestinal disorder, unspecified; K21.9 Gastro-esophageal reflux disease without esophagitis
CPT/HCPCS: 99213

== ENCOUNTER → 2024-12-23 13:12 | Outpatient (BNVA) | payer MEDICARE, SELFPAY | PROVIDERS: PCP Internal Medicine; Visit Provider Nurse Practitioner | DX: K59.04 Chronic idiopathic constipation (principal); K21.9 Gastro-esophageal reflux disease without esophagitis; K59.9 Functional intestinal disorder, unspecified | CPT/HCPCS: 99212 ==

== ENCOUNTER 2025-01-05 14:10 | Outpatient (AMB) | payer MEDICARE, SELFPAY ==
--- NOTE | 2025-01-05 14:23 | A.OFFVIS_ITS ---
Vital Signs 01/05/25 14:28 Height 5 ft 6 in Weight 175 lb BMI 28.2 Intake Visit Reasons: OV-B/L knee Durolane inj f/u, given 10/01/24 Intake Note: Tammi is a 74 year old female who presents with complaints of progressively worsening bilateral knee pains. The patient describes her pains as sharp in nature. She has had cortisone injections in the past. The most recent set of cortisone injections gave her minimal relief. She has also had Durolane viscosupplementation injections which gave her good relief. She has tried Tylenol and ibuprofen which gave her minimal relief. She wishes to hold off on surgery if at all possible. Allergies cephalexin (From Keflex) Allergy (Verified 01/05/25 14:34) Rash doxycycline Allergy (Verified 01/05/25 14:34) Unknown levofloxacin (From Levaquin) Allergy (Verified 01/05/25 14:34) Unknown bisacodyl (From Dulcolax (bisacodyl)) Adverse Reaction (Intermediate, Verified 01/05/25 14:34) Nausea Medication List - Last Reconciled 01/06/25 by Julien Hair MD [jeane prebiotic fiber PO DAILY] clonazepam 1 mg PO DAILY PRN metoclopramide HCl 10 mg PO QID misoprostol 400 mcg (2 x 200 mcg) PO TID omeprazole 20 mg PO DAILY polyethylene glycol 3350 (Miralax) 17 grams PO BID venlafaxine ER 75 mg PO DAILY venlafaxine ER 150 mg PO DAILY [facility] Medical History Osteoarthritis of right knee Osteoarthritis of left knee Urinary frequency Arthritis of both knees Arthritis of left knee Arthritis of right knee Surgical History H/O partial thyroidectomy History of left hip replacement History of surgical removal of meniscus of knee H/O esophagogastroduodenoscopy H/O colonoscopy Social History Alcohol intake: never Patient Tobacco Use Status: Never used Tobacco Current occupational status: retired Physical Exam Vital Signs: BMI result Body Mass Index 28.2 Const Other: Well-nourished well-developed very friendly female awake alert and oriented x3 in no acute distress Extrem Other: Bilateral lower extremity examination shows good capillary refill, no skin lesions noted, normal sensation light touch Bilateral knee examination shows minimal effusions, palpable crepitus with range of motion, pain with range of motion, no instability Results Reviewed Results Reviewed: X-rays of the patient's bilateral knees taken previously show joint space narrowing, subchondral sclerosis, no acute bony abnormalities Assessment & Plan Assessment & Plan (1) Osteoarthritis of left knee: Code(s): M17.12 - Unilateral primary osteoarthritis, left knee Category: Medical (2) Osteoarthritis of right knee: Code(s): M17.11 - Unilateral primary osteoarthritis, right knee Category: Medical Plan Ms. Clifford presents with bilateral knee pains due to osteoarthritis. I had a lengthy discussion with the patient regarding the treatment options. She wishes to hold off on surgery if at all possible. I agree with this plan. She has not gotten good relief from cortisone injections in the past. Thus, I will see whether or not the patient's insurance company will cover a another set of viscosupplementation injections, such as Durolane, for both of her knees. I will see her back once the injections are available. I did give her a prescription for Celebrex to help with her discomfort in the meantime. Feel free to call me at any time should questions regarding her orthopedic management arise. I spent 21 minutes in reviewing the patient's records and imaging studies, seeing the patient and documenting in the medical record. Medications: New celecoxib (Celebrex) 200 mg PO DAILY PRN 30 caps 3RF pain Coding Level of Care Code Est Pt Level 3 (44203) Complex EM visit Add On G2211 Diagnoses Osteoarthritis of left knee M17.12 Osteoarthritis of right knee M17.11
[2025-01-05 14:28] VITALS: BMI 28.2
== END 2025-01-05 14:51 | disposition home or self-care (01) ==
LOC: HO.HOS 14:10
PROVIDERS: PCP Internal Medicine; Visit Provider Orthopaedic Surgery
DX: M17.0 Bilateral primary osteoarthritis of knee (principal)
CPT/HCPCS: 99213; G2211

== ENCOUNTER → 2025-01-05 14:10 | Outpatient (BNVA) | payer MEDICARE, SELFPAY | PROVIDERS: PCP Internal Medicine; Visit Provider Orthopaedic Surgery | DX: M17.0 Bilateral primary osteoarthritis of knee (principal) | CPT/HCPCS: 99212 ==

== ENCOUNTER 2025-02-10 13:40 | Outpatient (AMB) | payer MEDICARE, SELFPAY ==
[2025-02-10 13:42] VITALS: BP 120/71; PULSE 84
--- NOTE | 2025-02-10 13:42 | MHC.OFFVIS ---
Vital Signs 02/10/25 13:42 Height 5 ft 6 in BMI Reason not done Patient refused/unable BP 120/71 Blood Pressure Location Rt brachial Position Sitting Pulse 84 Intake Visit Reasons: 7wk F/U CIC Intake Note: Tammi presents in office today for follow up of CIC and labs. CC: Patient reports that the medication misoprostol is not working as good as at the beggining. She took it with Magnesium and it was working better for a while until it stopped helping. Medical Investigator Required: No Allergies cephalexin (From Keflex) Allergy (Verified 01/05/25 14:34) Rash doxycycline Allergy (Verified 01/05/25 14:34) Unknown levofloxacin (From Levaquin) Allergy (Verified 01/05/25 14:34) Unknown bisacodyl (From Dulcolax (bisacodyl)) Adverse Reaction (Intermediate, Verified 01/05/25 14:34) Nausea HPI HPI 7wk F/U CIC: Details: Assessment & Plan (1) Chronic idiopathic constipation: Code(s): K59.04 - Chronic idiopathic constipation Category: Medical (2) Small bowel motility disorder: Code(s): K59.9 - Functional intestinal disorder, unspecified Category: Medical (3) GERD (gastroesophageal reflux disease): Code(s): K21.9 - Gastro-esophageal reflux disease without esophagitis Category: Medical Plan She is having dim effect of the miso 2 qam and 1.5 qpm with miralax double dose. BUT if she takes 2 bid miso has water - she feels this may be r/t the miralax. Tolerating the miso. Will back off of of miralax and go to miso 2 bid. Will make avail mis 2 tabs tid in case dose not work. She continues on her metoclopramide 10 mg 4 times a day. We briefly consider a trial of colchicine but we have decided on the above plan instead as colchicine as sometimes used off-label for constipation. ROV 6 weeks. Orders: Orders Comprehensive Met. Panel Today K59.04 - Chronic idiopathic constipation Medications: Changed From misoprostol 400 mcg (2 x 200 mcg) PO BID 120 tabs 3RF K59.04 - Chronic idiopathic constipation, K59.9 - Functional intestinal disorder, unspecified To misoprostol 400 mcg (2 x 200 mcg) PO TID 180 tabs 3RF K59.04 - Chronic idiopathic constipation, K59.9 - Functional intestinal disorder, unspecified LABS: Not obtained TODAY'S VISIT She is taking 2 misoprostal bid, seh tried 4.5 but had diarrhea. She felt that the 4 a day was starting to taper off of its effectivness, so she added 400mg of OTC magnesium. I suggest that she add bid magnesium and that she make sure that it is not mag glycinate. I want her to go for a chem panel and a TSH, and remind her of this. I will especially need a Chem panel if we decide to try colchicine as this is kind of rough on the renal system. ROV 8 weeks. PFSH Medical History Osteoarthritis of right knee Osteoarthritis of left knee Urinary frequency Arthritis of both knees Arthritis of left knee Arthritis of right knee Surgical History H/O partial thyroidectomy History of left hip replacement History of surgical removal of meniscus of knee H/O esophagogastroduodenoscopy H/O colonoscopy Social History Alcohol intake: never Patient Tobacco Use Status: Never used Tobacco Current occupational status: retired Review of Systems Const Denies fatigue, Denies fever(s), Denies night sweats, Denies poor appetite and Denies weight loss Eyes Details: Glasses Reports requires corrective lenses ENT Reports Normal hearing present, Denies dental pain, Denies dysphagia, Denies hearing loss, Denies mouth pain, Denies odynophagia, Denies throat swelling, Denies tongue swelling and Reports other (Dentition adequate) Card Reports no additional complaints Resp Reports no additional complaints GI Details: Denies abdominal pain, Denies melena, Denies bloating, Denies hematochezia, Reports constipation, Denies GI cramping, Denies dysphagia, Denies excessive flatus, Denies early satiety, Reports heartburn, Denies diarrhea, Denies nausea, Denies odynophagia, Denies vomiting and Denies hematemesis Skin/Breast Denies pruritus, Denies lesions, Denies rash and Denies jaundice Neuro Reports Normal hearing present and Denies Abnormal speech present Endo Denies fatigue Aller/Immun Denies throat swelling and Denies tongue swelling Physical Exam Vital Signs: Last Vital Signs Pulse 84 02/10/25 13:42 BP 120/71 02/10/25 13:42 Const General: cooperative, no acute distress, well developed and well groomed Nutritional Appearance: well nourished and overweight Orientation/consciousness: oriented to person, oriented to place and oriented to time Limitations: No language barrier HEENT Head: Yes normocephalic and Yes atraumatic Eyes General: appearance normal, both eyes and all related structures Pupils: Equal, round and reactive pupils present Neck Neck: Yes normal visual inspection and Yes no lymphadenopathy Thyroid: Thyroid normal Resp Effort & Inspection: normal respiratory effort and able to speak in complete sentences Auscultation: clear to auscultation bilaterally Cardio Rate: regular rate Rhythm: regular rhythm Heart sounds: Normal, physiologic split S2 sound present Peripheral pulses: radial pulses present and posterior tibial pulses present GI Inspection: No distended and No Abdominal panniculus present Palpation (GI): Soft to palpation, nontender, no guarding, not rigid and No hepatosplenomegaly present Percussion: Yes normal to percussion Auscultation: normal bowel sounds Rectal Exam - Female: deferred Skin General skin exam: no rashes or lesions noted, turgor normal, skin not dry, no jaundice, No spider nevi and no striae Rashes: no rashes Nails: normal Neuro General: oriented to person, oriented to place and oriented to time Cranial nerves: Yes Equal, round and reactive pupils present and Yes Normal hearing present Speech: No Abnormal speech present Extrem General: Yes normal to inspection, No clubbing, No cyanosis and No edema Psych Appearance: grossly normal and well kempt Mental Status: mental status grossly normal Speech and movement: Normal speech and movement present Affect: normal affect Attitude: cooperative Thought process: Normal thought process present and not confabulating Thought content: Normal thought content present Insight: Limited insight present (Psych) Judgement: Limited judgement present (Psych) Assessment & Plan Assessment & Plan (1) Chronic idiopathic constipation: Code(s): K59.04 - Chronic idiopathic constipation Category: Medical (2) Small bowel motility disorder: Code(s): K59.9 - Functional intestinal disorder, unspecified Category: Medical (3) GERD (gastroesophageal reflux disease): Code(s): K21.9 - Gastro-esophageal reflux disease without esophagitis Category: Medical (4) Erosive gastritis: Code(s): K29.60 - Other gastritis without bleeding Category: Medical Plan She is taking 2 misoprostal bid, seh tried 4.5 but had diarrhea. She felt that the 4 a day was starting to taper off of its effectivness, so she added 400mg of OTC magnesium. I suggest that she add bid magnesium and that she make sure that it is not mag glycinate. I want her to go for a chem panel and a TSH, and remind her of this. I will especially need a Chem panel if we decide to try colchicine as this is kind of rough on the renal system. ROV 8 weeks. Orders: Orders TSH reflex Free T4 Today K59.04 - Chronic idiopathic constipation Coding Level of Care Code Est Pt Level 3 (48320) Diagnoses Chronic idiopathic constipation K59.04 Small bowel motility disorder K59.9 GERD (gastroesophageal reflux disease) K21.9 Erosive gastritis K29.60
--- OUTSIDE RECORDS SUMMARY | 2025-02-10 14:18 | XMS_ITS | Data Portability ---
Author Organization [place] [facility] Swapna [facility] [place] Address [address] [place] [address] Care Team Providers Care Technician Helper Instrument Name Role Phone AlmaFRANCIS NEGRETE Primary Care [...] Recorded Time Pain of left knee joint [id number] 7 Active 2022 Julien Hair MD [address], [place], [address], [place] [facility] [place], P 3 11:50:46 Arthritis of knee [id number] Active [address], [place], [address], [place] [facility] [place], P 3 12:42:22 Problem Notes None recorded. Procedures Surgical History Date Name Laterality Status Provider Name and Address Organization Details Recorded Time Hip Surgery completed Elaine Jiménez [place] [facility] [place] 10/10/2022 11:07:06 Knee Surgery completed Elaine Jim[place]nez [place] [facility] [place] 10/10/2022 11:07:13 Thyroid Surgery completed Elaine Jiménez [place] [facility] [place] 10/10/2022 11:07:30 Imaging Results None recorded. Procedure Notes None recorded. Medical Equipment None Reported. Allergies Allergen ID Allergen Name Allergen Category Reaction Reaction Severity Criticality Documentation Date Start Date Code Code System Note Provider Name and Address Organization Details Recorded Time 726 amoxicill in medicatio n Not available Not available Not available 10/10/2022 723 RxNorm Elaine Jiménez null, [place] [facility] [place], [facility] 11:06:23 Medications Name Sig Start Date [...] Code Diagnosis Note 1523 Julien Hair MD [address] [place] [address] 10/10/2022 10:57:40 10/10/2022 11:52:01 Pain of left knee joint [id number] 26419 M25.562 Arthritis of knee 082409 002 M13.869 Health Concerns Section Related Observation LastModified by Organization Detai ls LastModified Time None Recorded Concern Status LastModified by Organization Details LastModified Time None Recorded Advance Directives Directive None Recorded Payers None recorded. Notes Date Note Type Note Provider Name and Address Organization Details Recorded Time 10/10/2022 text/html The patient presents for her first postoperative visit after undergoing left knee arthroscopic surgery on September 27, 2022. She reports mild discomfort in her left knee. She is not taking any medicines for her discomfort. She denies any fevers or chills. Julien Hair MD [address], [place], [address], [place] [facility] [place], 10/10/2022 12:42:33 OBGyn Episode No OBEpisode recorded.
--- OUTSIDE RECORDS SUMMARY | 2025-02-10 14:19 | XMS_ITS ---
Author Name [facility] Organization Unknown Care Team Organization Name Specialty Phone Email Start Date End Da te [facility] Derwood DEUCE YOU Primary Care 06/21/2022 03/09/2024
--- OUTSIDE RECORDS SUMMARY | 2025-02-10 14:19 | XMS_ITS | Encounter Summary ---
Author Organization [facility] Address [address] [place] [phone] Phone Care Team Providers Care Senior Design Engineer Name Role Phone Hugo Quintero MD Primary Care Provider + Reason for Referral * Consultation (Within 1 month) - Closed Specialty Diagnoses / Procedures Referred By Bar mccann Referred To Contact Gastroenterology Diagnoses Flatulence, eructation, and gas pain Gastroesophageal reflux disease, esophagitis presence not specified Hiatal hernia Loss of control of rectal sphincter System, Provider Not In, [facility] [address] [address] Nilay Encinas MD Phone: tel: fax: [email or web address] Referral ID Status Reason Start Date Expiration Date Visits Re quested Visits Authorized [id number] Closed 06/20/2017 06/20/2018 1 1 Encounter Details Date Type Department Care Team (Latest Contact Info) Description 06/20/2017 Transcribe Orders [facility] [address] [facility] [place] [address] Hugo Quintero MD [address] [place] [phone] Flatulence, eructation, and gas pain (Primary Dx); Gastroesophageal reflux disease, esophagitis presence not specified; Hiatal hernia; Loss of control of rectal sphincter Social History Tobacco Use Types Packs/Day Years Used Date Smoking Tobacco: Former Comments:Quit smokin07/22 Alcohol Use Standard Drinks/Week Comments Yes 0 (1 standard drink = 0.6 oz pur e alcohol) Comments Unknown Sex and Gender Information Value Date Recorded Sex Assigned at Not on file Legal Sex Female 7:49 PM EST Gender Identity Not on file Sexual Orientation Not on file documented as of this encounter Plan of Treatment Scheduled Referrals Name Type Priority Associated Diagnoses Order Schedule Ambulatory referral to [facility] (Consult Requests Only) Outpatient Referral Routine Flatulence, eructation, and gas pain Gastroesophageal Reflux Disease, Esophagitis Presence Not Specified Hiatal hernia Loss of control of rectal sphincter Ordered: 06/20/2017 documented as of this encounter Visit Diagnoses Diagnosis Flatulence, eructation, and gas pain- Primary Gastroesophageal reflux disease, esophagitis presence not specified Hiatal hernia Diaphragmatic hernia without mention of obstruction or gangrene Loss of control of rectal sphincter documented in this encounter Care Teams Senior Design Engineer Relationship Specialty Start Date End Date Hugo Quintero MD [address] [place] [phone] PCP - General 01/19/14 documented as of this encounter Additional Source Comments The information contained in this document represents components of the legal health record. It is not the complete legal health record.[facility]
--- OUTSIDE RECORDS SUMMARY | 2025-02-10 14:19 | XMS_ITS | Clinical Summary ---
Author Organization [facility] Address [address] [place] [address] Care Team Providers Care Boiler Tube Blower Name Role Phone Hugo Quintero MD Primary Care Provider [phone] Allergies Active Allergy Reactions Criticality Noted Date [...] season) 2024 10/19/2020, 09/28/2020 Influenza Vaccine (#1) 2025 , 09/02/2017 RSV Adult > 60+ Yrs or (1 - 1-dose 75+ series) 01/08/2027 Pneumococcal Vaccine Completed 05/25/2020, 03/26/2018 Hepatitis B Vaccines Aged Out No long er eligible based on patient's age to complete this topic RSV Ped < 20 months Aged Out No longe r eligible based on patient's age to complete this topic Care Teams Boiler Tube Blower Relationship Specialty Start Date End Date Hugo Quintero MD PCP - General Internal Medicine 02/11/17
== END 2025-02-10 14:18 | disposition home or self-care (01) ==
LOC: HO.HGI 13:41
PROVIDERS: PCP Internal Medicine; Visit Provider Nurse Practitioner
DX: K59.04 Chronic idiopathic constipation (principal); K59.9 Functional intestinal disorder, unspecified; K21.9 Gastro-esophageal reflux disease without esophagitis; K29.60 Other gastritis without bleeding
CPT/HCPCS: 99213

== ENCOUNTER 2025-02-10 13:40 | Outpatient (REF) | payer MEDICARE, SELFPAY | END 2025-02-10 13:41 | disposition home or self-care (01) | LOC: HO.LAB 13:40 | PROVIDERS: PCP Internal Medicine; Visit Provider Nurse Practitioner | DX: K59.04 Chronic idiopathic constipation (principal); K21.9 Gastro-esophageal reflux disease without esophagitis; K59.9 Functional intestinal disorder, unspecified; K29.60 Other gastritis without bleeding | CPT/HCPCS: 36415; 84443; 99212 ==

== ENCOUNTER 2025-04-07 14:16 | Outpatient (AMB) | payer MEDICARE, SELFPAY ==
--- NOTE | 2025-04-07 14:21 | MHC.OFFVIS ---
Intake Visit Reasons: INJ-B/L knee Injection, Last Durolane 10/01/24. Intake Note: Tammi is a 75 year old female who presents today for a injection in her bilateral knee, last Durolane injection 10/01/24. At today's visit she states that the last injection did give relief. She reports that she did have a fall at home about two months ago, she missed a step. She added that no injury to her knees. She has failed the last 3 months of conservative treatment which has included Tylenol, anti-inflammatory medicines and physical therapy exercises. At this point her bilateral knee pains are interfering with her activities of daily living and her ability to sleep well through the night. She wishes to hold off on total knee replacement surgery. Allergies cephalexin (From Keflex) Allergy (Verified 04/07/25 14:25) Rash doxycycline Allergy (Verified 04/07/25 14:25) Unknown levofloxacin (From Levaquin) Allergy (Verified 04/07/25 14:25) Unknown bisacodyl (From Dulcolax (bisacodyl)) Adverse Reaction (Intermediate, Verified 04/07/25 14:25) Nausea Medication List - Last Reconciled 04/07/25 by Julien Hair MD clonazepam 1 mg PO DAILY PRN metoclopramide HCl 10 mg PO QID misoprostol 400 mcg (2 x 200 mcg) PO TID omeprazole 20 mg PO DAILY polyethylene glycol 3350 (Miralax) 17 grams PO BID venlafaxine ER 75 mg PO DAILY venlafaxine ER 150 mg PO DAILY [facility] Medical History Osteoarthritis of right knee Osteoarthritis of left knee Urinary frequency Arthritis of both knees Arthritis of left knee Arthritis of right knee Surgical History H/O partial thyroidectomy History of left hip replacement History of surgical removal of meniscus of knee H/O esophagogastroduodenoscopy H/O colonoscopy Social History Alcohol intake: never Patient Tobacco Use Status: Never used Tobacco Current occupational status: retired Physical Exam Const Other: Well-nourished well-developed very friendly female awake alert and oriented x3 in no acute distress Extrem Other: Bilateral knee examination shows minimal effusions, palpable crepitus with range of motion, pain with range of motion, no instability Office Procedures AMB Joint Injection/Aspiration Joint Injection/Aspiration Primary Site: right knee Prep: site was prepped using aseptic technique Injected: 60 mg of (Durolane viscosupplementation) and 1% plain lidocaine Procedure: The patient tolerated the procedure well Coding - Large joint Procedure code (CPT) selection complete AMB Joint Injection/Aspiration Joint Injection/Aspiration Primary Site: left knee Prep: site was prepped using aseptic technique Injected: 60 mg of (Durolane viscosupplementation) and 1% plain lidocaine Procedure: The patient tolerated the procedure well Coding - Large joint Procedure code (CPT) selection complete Results Reviewed Results Reviewed: X-rays of the patient's bilateral knees taken previously show joint space narrowing, subchondral sclerosis, no acute bony abnormalities Assessment & Plan Assessment & Plan (1) Osteoarthritis of left knee: Code(s): M17.12 - Unilateral primary osteoarthritis, left knee Category: Medical (2) Osteoarthritis of right knee: Code(s): M17.11 - Unilateral primary osteoarthritis, right knee Category: Medical Plan Tammi presents with bilateral knee pains due to osteoarthritis. The risks and benefits of bilateral knee Durolane viscosupplementation injections were discussed at length with the patient. The patient wished to proceed. She tolerated the injections well. She will continue with her home exercise program. She will contact me prior to her follow-up appointment in 3 months should any questions or concerns arise. Feel free to call me at any time should questions regarding her orthopedic management arise. I spent 21 minutes in reviewing the patient's records and imaging studies, seeing the patient and documenting in the medical record. Orders: Orders AMB Joint Injection/Aspiration Today M17.12 - Unilateral primary osteoarthritis, left knee AMB Joint Injection/Aspiration Today M17.11 - Unilateral primary osteoarthritis, right knee Coding Level of Care Code Est Pt Level 3 (87519) Complex EM visit Add On G2211 Diagnoses Osteoarthritis of left knee M17.12 Osteoarthritis of right knee M17.11 CPT Codes Coding - 34111 Large joint: 59008 - Large joint ([id number]) Coding - 02548 Large joint: 96204 - Large joint ([id number])
--- OUTSIDE RECORDS SUMMARY | 2025-04-07 18:02 | XMS_ITS | Clinical Summary ---
Author Organization [facility] Address [address] [place] [address] Phone Care Team Providers Care Spot Billing Clerk Name Role Phone Hugo Quintero MD Primary Care Provider + Allergies Active Allergy Reactions Criticality Noted Date Comments Amoxicillin GI Upset 07/25/2010 Medications venlafaxine (EFFEXOR-XR) 150 MG 24 hr capsule EFFEXOR XR (VENLAFAXINE EXTENDED RELEASE) 150 MG CAP ER 24H; Dose: 150 MG; Form: Take 1 CAP ER 24H; Route: PO; Frequency: QD; Directions: Not available; Details: Dispense: Capsule(s); Taking; Status: Active; Source: SANDHYA CHU M.D.; Date: 07/30/2012 3 Active LACTOBACILLUS ACIDOPHILUS (PROBIOTIC ORAL) probiotic; Dose: Not available; Form: Not available; Route: PO; Frequency: Not available; Directions: Not available; Details: Taking; Status: Active; Source: SANDHYA CHU M.D.; Date: 07/30/2012 3 Active cholecalciferol 400 unit VITAMIN D3 (CHOLECALCIFE ROL) 400 UNIT TABLET; Dose: 800 UNITS; Form: Take 2 TABLET; Route: PO; Frequency: Q24H; Directions: Not available; Details: Dispense: Tablet(s); Taking; Status: Active; Source: SANDHYA CHU M.D.; Date: 07/30/2012 3 Active ESTRADIOL (ESTRACE VAGL) Place vaginally. Active omeprazole (PRILOSEC) 20 mg TbEC Take 1 tablet (20 mg total) by mouth 2 (two) times a day. 60 tablet 2 8 Active Active Problems Problem Noted Date Diagnosed Date Abdominal bloating 08/02/2017 Other constipation 08/02/2017 Greater trochanteric bursitis of left hip 2014 Osteoarthritis of hip 11/27/2012 Overview (09/11/2014): Osteoarthritis of pelvis Multinodular goiter 09/01/2012 Overview (09/11/2014): Multinodular goiter Family History Medical History Relation Comments Coronary artery disease Father Relation Status Comments Father Social History Tobacco Use Types Packs/Day Years Used Date Smoking Tobacco: Former Comments:Quit smokin07/22 Alcohol Use Standard Drinks/Week Comments Yes 0 (1 standard drink = 0.6 oz pur e alcohol) Education Answer Date Recorded Are you interested in more education? Not on rich e 11/15/2022 Are you concerned about learning? Not on file 11/15/2022 No 11/15/2022 No 11/15/2022 Digital Access Answer Date Recorded No 12/16/2022 No 12/16/2022 No 12/16/2022 Reliable internet access at home? Not on file 12/16/2022 Device with a working camera? Not on file Comments Unknown Sex and Gender Information Value Date Recorded Sex Assigned at Not on file Legal Sex Female 7:49 PM EST Gender Identity Not on file Sexual Orientation Not on file Last Filed Vital Signs Vital Sign Reading Time Taken Comments Blood Pressure 117/73 08/02/2017 2:48 PM EST Pulse 80 08/02/2017 2:48 PM EST Temperature 36.5 C (97.7 F) 05/09/2015 12:49 PM EDT Respiratory Rate - - Oxygen Saturation - - Inhaled Oxygen Concentration - - Weight 85.3 kg (188 lb) 08/02/2017 2:48 PM EST Height 167.6 cm (5' 6 ) 08/02/2017 2:48 PM EST Body Mass Index 30.34 08/02/2017 2:48 PM EST Plan of Treatment Health Maintenance Due Date Last Done Comments Adult Td,Tdap Booster 1952 LIPID PANEL 1952 DEPRESSION SCREENING 1964 SMOKING Hx and SMOKELESS TOBACCO SCREENING 01/08/1965 HEPATITIS C SCREENING 01/08/1970 MAMMOGRAM 1992 COLOGUARD 01/08/1997 COLONOSCOPY 01/08/1997 COLORECTAL CANCER SCREENING 01/08/1997 FIT TEST 01/08/1997 FOBT 01/08/1997 SIGMOIDOSCOPY 01/08/1997 VIRTUAL COLONOSCOPY 01/08/1997 ZOSTER VACCINES (1 of 2) 01/08/2002 OSTEOPOROSIS SCREENING INITI AL (ONE-TIME) 01/08/2017 PNEUMOCOCCAL VACCINES (50+ years) (2 of 2 - PCV) 05/25/2021 05/25/2020 COVID-19 VACCINE (3 - 2023-2 5 season) 2024 10/19/2020, 09/28/2020 INFLUENZA VACCINE (#1) 2025 9, 09/02/2017 RSV VACCINE (1 - 1-dose 75+ series) 01/08/2027 HEPATITIS A VACCINES Aged Out No long er eligible based on patient's age to complete this topic HIB VACCINES Aged Out No longer eligi ble based on patient's age to complete this topic MENINGOCOCCAL VACCINES (ACWY) Aged Out No longer eligible based on patient's age to complete this topic MENINGOCOCCAL VACCINES (B) Aged Out N o longer eligible based on patient's age to complete this topic Medical Devices Not on file Insurance MEDICARE PART A & B [facility] MEDICARE SUPPLEMENT [address] [address] [id number] MEDICARE PART A & B [facility] MEDICARE SUPPLEMENT MEDICARE PART A & B MEDICARE SUPPLEMENT MEDICARE PART A & B MEDICARE SUPPLEMENT MEDICARE PART A & B [facility] MEDICARE SUPPLEMENT MEDICARE PART A & B [facility] MEDICARE SUPPLEMENT MEDICARE PART A & B [facility] MEDICARE SUPPLEMENT MEDICARE PART A & [place] [address] MEDICARE SUPPLEMENT MEDICARE PART A & B [id number] [place] [address] MEDICARE SUPPLEMENT Care Teams Spot Billing Clerk Relationship Specialty Start Date End Date Hugo Quintero MD [address] [address] PCP - General 01/19/14 Additional Source Comments The information contained in this document represents components of the legal health record. It is not the complete legal health record.[facility]
--- OUTSIDE RECORDS SUMMARY | 2025-04-07 18:02 | XMS_ITS | Clinical Summary ---
Author Organization [facility] Address [address] [place] [address] Care Team Providers Care Winding Lathe Operator Name Role Phone Hugo Quintero MD Primary Care Provider [phone] Allergies Active Allergy Reactions Criticality Noted Date [...] (DEXA Scan) 01/08/2017 COVID-19 Vaccine (3 - 2024-2 6 season) 2025 10/19/2020, 09/28/2020 Influenza Vaccine (#1) 2025 , 09/02/2017 RSV Adult > 60+ Yrs or (1 - 1-dose 75+ series) 01/08/2027 Pneumococcal Vaccine Completed 05/25/2020, 03/26/2018 Hepatitis B Vaccines Aged Out No long er eligible based on patient's age to complete this topic RSV Ped < 20 months Aged Out No longe r eligible based on patient's age to complete this topic Care Teams Winding Lathe Operator Relationship Specialty Start Date End Date Hugo Quintero MD PCP - General Internal Medicine 02/11/17
--- OUTSIDE RECORDS SUMMARY | 2025-04-07 18:02 | XMS_ITS | Encounter Summary ---
Author Organization [facility] Address [address] [place] [address] Phone Care Team Providers Care Insulation Board Head Saw Operator Name Role Phone Hugo Quintero MD Primary Care Provider + Reason for Referral * Consultation (Within 1 month) - Closed Specialty Diagnoses / Procedures Referred By Bar mccann Referred To Contact Gastroenterology Diagnoses Flatulence, eructation, and gas pain Gastroesophageal reflux disease, esophagitis presence not specified Hiatal hernia Loss of control of rectal sphincter System, Provider Not In, [facility] [address] [address] Nilay Encinas MD Phone: tel: fax: [email or web address] Referral ID Status Reason Start Date Expiration Date Visits Re quested Visits Authorized [id number] Closed 06/20/2017 06/20/2018 1 1 Encounter Details Date Type Department Care Team (Latest Contact Info) Description 06/20/2017 Transcribe Orders [facility] [address] [facility]th [place] [address] Hugo Quintero MD [address] [place] [phone] Flatulence, eructation, and gas pain (Primary Dx); [...] Associated Diagnoses Order Schedule Ambulatory referral to [facility] (Consult Requests Only) Outpatient Referral Routine [...] sphincter documented in this encounter Care Teams Insulation Board Head Saw Operator Relationship Specialty Start Date End Date Hugo Quintero MD [address] [place] [phone] PCP - General 01/19/14 documented as of this encounter Additional Source Comments The information contained in this document represents components of the legal health record. It is not the complete legal health record.[facility]
== END 2025-04-07 14:37 | disposition home or self-care (01) ==
LOC: HO.HOS 14:17
PROVIDERS: PCP Internal Medicine; Visit Provider Orthopaedic Surgery
DX: M17.0 Bilateral primary osteoarthritis of knee (principal)
CPT/HCPCS: 20610; 99213

== ENCOUNTER → 2025-04-07 14:16 | Outpatient (BNVA) | payer MEDICARE, SELFPAY | PROVIDERS: PCP Internal Medicine; Visit Provider Orthopaedic Surgery | DX: M17.0 Bilateral primary osteoarthritis of knee (principal) | CPT/HCPCS: 20610; 99212; J2003; J7318 ==

== ENCOUNTER 2025-04-14 12:56 | Outpatient (AMB) | payer MEDICARE, SELFPAY ==
--- NOTE | 2025-04-14 12:59 | A.OFFVIS_ITS ---
Vital Signs 04/14/25 13:14 Height 5 ft 6 in BP 140/72 H Blood Pressure Location Rt brachial Position Sitting Pulse 78 Intake Visit Reasons: 8wk f/u Intake Note: Tammi presents in office today for follow up of CIC and labs. CC: Patient reports that she continues to have constipation. She brought a medication she will be starting soon Fluoxavine BID and wanted to know if it would affect her. Industrial Furnace Fabricator Required: No Accompanied by: Self / Same As Patient Allergies cephalexin (From Keflex) Allergy (Verified 04/14/25 13:20) Rash doxycycline Allergy (Verified 04/14/25 13:20) Unknown levofloxacin (From Levaquin) Allergy (Verified 04/14/25 13:20) Unknown bisacodyl (From Dulcolax (bisacodyl)) Adverse Reaction (Intermediate, Verified 04/14/25 13:20) Nausea Medication List - Last Reconciled 04/14/25 by JAMES Santos clonazepam 1 mg PO DAILY PRN magnesium oxide 400 mg PO BID metoclopramide HCl 10 mg PO QID misoprostol 400 mcg (2 x 200 mcg) PO TID omeprazole 20 mg PO DAILY polyethylene glycol 3350 (Miralax) 17 grams PO BID venlafaxine ER 75 mg PO DAILY venlafaxine ER 150 mg PO DAILY HPI HPI 8wk f/u: Details: Assessment & Plan (1) Chronic idiopathic constipation: Code(s): K59.04 - Chronic idiopathic constipation Category: Medical (2) Small bowel motility disorder: Code(s): K59.9 - Functional intestinal disorder, unspecified Category: Medical (3) GERD (gastroesophageal reflux disease): Code(s): K21.9 - Gastro-esophageal reflux disease without esophagitis Category: Medical (4) Erosive gastritis: Code(s): K29.60 - Other gastritis without bleeding Category: Medical Plan She is taking 2 misoprostal bid, seh tried 4.5 but had diarrhea. She felt that the 4 a day was starting to taper off of its effectiveness, so she added 400mg of OTC magnesium. I suggest that she add bid magnesium and that she make sure that it is not mag glycinate. I want her to go for a chem panel and a TSH, and remind her of this. I will especially need a Chem panel if we decide to try colchicine as this is kind of rough on the renal system. ROV 8 weeks. Orders: Orders TSH reflex Free T4 Today K59.04 - Chronic idiopathic constipation LABS; Laboratory Tests 02/10/25 14:30 TSH 0.97 TODAYS VISIT [facility] Medical History Osteoarthritis of right knee Osteoarthritis of left knee Urinary frequency Arthritis of both knees Arthritis of left knee Arthritis of right knee Surgical History H/O partial thyroidectomy History of left hip replacement History of surgical removal of meniscus of knee H/O esophagogastroduodenoscopy H/O colonoscopy Social History Alcohol intake: never Patient Tobacco Use Status: Never used Tobacco Current occupational status: retired Review of Systems Const Denies fatigue, Denies fever(s), Denies night sweats, Denies poor appetite and Denies weight loss ENT Reports Normal hearing present, Denies dental pain, Denies dysphagia, Denies hearing loss, Denies mouth pain, Denies odynophagia, Denies throat swelling, Denies tongue swelling and Reports other (Dentition adequate) Card Reports no additional complaints Resp Reports no additional complaints GI Details: Denies abdominal pain, Denies melena, Denies bloating, Denies hematochezia, Reports constipation, Denies GI cramping, Denies dysphagia, Denies excessive flatus, Denies early satiety, Denies heartburn, Denies diarrhea, Denies nausea, Denies odynophagia, Denies vomiting and Denies hematemesis Skin/Breast Denies pruritus, Denies lesions, Denies rash and Denies jaundice Neuro Reports Normal hearing present and Denies Abnormal speech present Endo Denies fatigue Aller/Immun Denies throat swelling and Denies tongue swelling Physical Exam Vital Signs: Last Vital Signs Pulse 78 09/24/25 13:14 BP 140/72 H 04/14/25 13:14 Const General: cooperative, no acute distress, well developed and well groomed Nutritional Appearance: average body habitus and well nourished Orientation/consciousness: oriented to person, oriented to place and oriented to time Limitations: No language barrier HEENT Head: Yes normocephalic and Yes atraumatic Eyes General: appearance normal, both eyes and all related structures Pupils: Equal, round and reactive pupils present Neck Neck: Yes normal visual inspection and Yes no lymphadenopathy Thyroid: Thyroid normal Resp Effort & Inspection: normal respiratory effort and able to speak in complete sentences Auscultation: clear to auscultation bilaterally Cardio Rate: regular rate Rhythm: regular rhythm Heart sounds: Normal, physiologic split S2 sound present Peripheral pulses: radial pulses present and posterior tibial pulses present GI Inspection: No distended and No Abdominal panniculus present Palpation (GI): Soft to palpation, nontender, no guarding, not rigid and No hepatosplenomegaly present Percussion: Yes normal to percussion Auscultation: normal bowel sounds Rectal Exam - Female: deferred Skin General skin exam: no rashes or lesions noted, turgor normal, skin not dry, no jaundice, No spider nevi and no striae Rashes: no rashes Nails: normal Neuro General: oriented to person, oriented to place and oriented to time Cranial nerves: Yes Equal, round and reactive pupils present and Yes Normal hearing present Speech: No Abnormal speech present Extrem General: Yes normal to inspection, No clubbing, No cyanosis and No edema Psych Appearance: grossly normal and well kempt Mental Status: mental status grossly normal Speech and movement: Normal speech and movement present Affect: normal affect Attitude: cooperative Thought process: Normal thought process present and not confabulating Thought content: Normal thought content present Insight: Limited insight present (Psych) Judgement: Limited judgement present (Psych) Assessment & Plan Assessment & Plan (1) Chronic idiopathic constipation: Code(s): K59.04 - Chronic idiopathic constipation Category: Medical (2) Erosive gastritis: Code(s): K29.60 - Other gastritis without bleeding Category: Medical (3) GERD (gastroesophageal reflux disease): Code(s): K21.9 - Gastro-esophageal reflux disease without esophagitis Category: Medical (4) Small bowel motility disorder: Code(s): K59.9 - Functional intestinal disorder, unspecified Category: Medical Plan Her current GI regimen consists of metoclopramide 10 mg 4 times a day, magnesium oxide 400 mg twice a day, misoprostol 400 mg twice a day, fiber therapy, MiraLax, and omeprazole. Tammi found that when she tried to increase the misoprostol even if she went very slowly she would have diarrhea. Yet when she goes back to her twice a day dosing, she has constipation. For awhile this was relieved by taking magnesium 400 mg twice a day but now that does not seem to be doing the job as well for her. She says she is consuming quite a lot of fiber says ?I am totally sick of fiber!? She again is somewhat perseverates on the idea that she may need a colostomy bag. I let her know that this is not the case, this is not how we treat constipation. Besides studies have shown that her motility issue was in the small bowel and that is not an organ that we remove because that is what absorbs food. I am trying to ease her fears as she seems somewhat obsessed with this idea. I think she is also overly obsessed with her bowel movements. She shows me a new medication she will be starting, fluoxamine. She wants to know if this will interfere with her constipation management. It absolutely would not as the most common GI side effect would be diarrhea which would be therapeutic for her. Also, I note that this medication is commonly prescribed for obsessive-compulsive disorder which I think is completely appropriate in her case. Return office visit in 6 weeks. Coding Level of Care Code Est Pt Level 3 (21164) Diagnoses Chronic idiopathic constipation K59.04 Erosive gastritis K29.60 GERD (gastroesophageal reflux disease) K21.9 Small bowel motility disorder K59.9
[2025-04-14 13:14] VITALS: BP 140/72; PULSE 78
--- OUTSIDE RECORDS SUMMARY | 2025-04-14 15:22 | XMS_ITS | Clinical Summary ---
Author Organization [facility] Address [address] [place], [place] [id number] Care Team Providers Care Stack Yield Engineer Name Role Phone Hugo Quintero MD Primary Care Provider [phone] Allergies Active Allergy Reactions Criticality Noted Date [...] age to complete this topic Care Teams Stack Yield Engineer Relationship Specialty Start Date End Date Hugo Quintero MD PCP - General Internal Medicine 02/11/17
--- OUTSIDE RECORDS SUMMARY | 2025-04-14 15:22 | XMS_ITS | Clinical Summary ---
Author Organization [facility] Address [address] [place] [address] Phone Care Team Providers Care Cupola Tapper Name Role Phone Hugo Quintero MD Primary [...] (2 of 2 - PCV) 05/25/2021 05/25/2020 INFLUENZA VACCINE (#1) 2025 9, 09/02/2017 COVID-19 VACCINE (3 - 2024-2 6 season) 2025 10/19/2020, 09/28/2020 RSV VACCINE (1 - 1-dose 75+ series) [...] file Insurance MEDICARE PART A & B [facility] MEDICARE SUPPLEMENT MEDICARE PART A & B [facility] MEDICARE SUPPLEMENT MEDICARE PART A & B MEDICARE SUPPLEMENT MEDICARE PART A & B MEDICARE SUPPLEMENT MEDICARE PART A & B [facility] MEDICARE SUPPLEMENT MEDICARE PART A & B [facility] MEDICARE SUPPLEMENT MEDICARE PART A & B [facility] MEDICARE SUPPLEMENT MEDICARE PART A & [place] [address] [place] [address] MEDICARE SUPPLEMENT MEDICARE PART A & B [id number] [place] [address] MEDICARE SUPPLEMENT Care Teams Cupola Tapper Relationship Specialty Start Date End Date Hugo Quintero MD [address] [place] [id number] PCP - General 01/19/14 Additional Source Comments The information contained in this document represents components of the legal health record. It is not the complete legal health record.[facility]
--- OUTSIDE RECORDS SUMMARY | 2025-04-14 15:22 | XMS_ITS | Data Portability ---
Author Organization [place] [facility] Swapna Obrien AONE [place] Address [address] [place] [address] Care Team Providers Care Chaperone Name Role Phone AlmaFRANCIS NEGRETE Primary Care [...] months should any questions or concerns arise. [email or web address] Not available 10/10/2022 12:42:17 Plan of Treatment [...] Name and Address Organization Details Recorded Time Arthritis of right knee [id number] 01566 Active 2016 Arthritis of right knee Not Available [facility] 5 00:29:46 Pain of left knee joint 69127496485 4107 Active [address], [place], [address] , [place] [facility] 3 11:50:46 Arthritis of knee 941937297 Active [address], [place], [address] , [place] [facility] 3 12:42:22 Problem Notes None recorded. Procedures Surgical History Date Name Laterality Status Provider Name and Address Organization Details Recorded Time Hip Surgery completed Elaine Jim[place]nez [place] [facility] 10/10/2022 11:07:06 Knee Surgery completed Elaine Jim[place]nez [place] [facility] 10/10/2022 11:07:13 Thyroid Surgery completed Elaine Jim[facility]nez [facility] 10/10/2022 11:07:30 Imaging Results None recorded. Procedure Notes None recorded. Medical Equipment None Reported. Allergies Allergen ID Allergen Name Allergen Category Reaction Reaction Severity Criticality Documentation Date Start Date Code Code System Note Provider Name and Address Organization Details Recorded Time 065951 cephalexi n medicatio n Not available Not available Not available 04/13/20252016 2231 RxNorm Not Available [facility] 5 01:30:13 975260 mold extract medicatio n Not available Not available Not available 04/13/20252016 80427 8 RxNorm Not Available [facility] 5 01:30:14 726 amoxicill in medicatio n Not available Not available Not available 10/10/2022 723 RxNorm Elaine v[place], [place] [facility] 3 11:06:23 Medications Name Sig Start Date Stop Date Status Note LastModified by Organization Details LastModified Time desonide 0.05 % topical cream Apply topically 2 (two) times a day. active Not Available Not Available No t Available venlafaxine ER 75 mg capsule,ext ended release 24 hr TAKE 1 CAPSULE BY MOUTH EVERY DAY active Not Available Not Available No t Available hydrocodone 5 mg-acetamin ophen 325 mg tablet Take 1 tab every 12 hours as needed for pain 2020 active Not Available Not Available Not Avai lable venlafaxine 25 mg tablet Take 25 mg by mouth 2 (two) times a day. active Not Available Not Available No t Available famotidine 40 mg tablet TAKE ONE TABLET BY MOUTH ONCE A DAY AT BEDTIME 2016 active Not Available Not Available Not Avai lable clonazepam 0.5 mg tablet TAKE 1 TO 2 TABLETS BY MOUTH EVERY DAY active Not Available Not Available No t Available venlafaxine ER 150 mg capsule,ext ended release 24 hr TAKE 1 CAPSULE BY MOUTH EVERY DAY active Not Available Not Available No t Available tramadol 50 mg tablet Take 1 tab every 8 hours as needed for pain 2020 active Not Available Not Available Not Avai lable oxycodone-a cetaminophe n 5 mg-325 mg tablet TAKE 1 TABLET BY MOUTH EVERY 6 HOURS NEEDED FOR PAIN active Not Available Not Available No t Available famotidine 20 mg tablet TAKE 1 TABLET BY MOUTH TWICE A DAY active Not Available Not Available No t Available metoclopram tiki 5 mg tablet TAKE 1 TABLET BY MOUTH 3 TIMES A DAY BEFORE MEALS AND TAKE 2 TABLETS AT BEDTIME active Not Available Not Available No t Available triamcinolo ne acetonide 0.025 % topical cream APPLY TWICE DAILY TO AFFECTED AREAS ON FACE FOR UP TO 1 WK ON, 1 WK OFF NEEDED FOR SEVERE FLARES active Not Available Not Available No t Available pantoprazol e 40 mg tablet,moni yed release 2016 active Not Available Not Available Not Avai lable erythromyci n 5 mg/gram (0.5 %) eye ointment APPLY 1 APPLICATI ON INTO THE LEFT EYE TWICE A DAY FOR 7 DAYS active Not Available Not Available No t Available methylpredn isolone acetate 40 mg/mL suspension for injection 08/01 completed Not Available Not Available Not Available polymyxin B sulfate 10,000 unit-trimet hoprim 1 mg/mL eye drops APPLY 1 DROPS (OPHTHALM IC (EYE)) EVERY 12 HOURS FOR 7 DAYS active Not Available Not Available No t Available docusate sodium 100 mg capsule TAKE 1 CAPSULE BY MOUTH EVERY DAY WITH FOOD active Not Available Not Available No t Available Senna Laxative 8.6 mg tablet TAKE 2 CAPSULES BY MOUTH 2 TIMES A DAY FOR CONSTIPAT ION FOR 30 DAYS active Not Available Not Available No t Available hydroxychlo roquine 200 mg tablet Take 200 mg by mouth 2 (two) times a day. 2020 active Not Available Not Available Not Avai lable cholecalcif huma (vitamin D3) 10 mcg (400 unit) tablet VITAMIN D3 (CHOLECAL CIFEROL) 400 UNIT TABLET; Dose: 800 UNITS; Form: Take 2 TABLET; Route: PO; Frequency : Q24H; Direction s: Not available ; Details: Dispense: Tablet(s) ; Taking; Status: Active; Source: SYDNEY CHU M.D.; Date: 2012 active Not Available Not Available Not Avai lable Estrace 0.01% (0.1 mg/gram) vaginal cream USE 3-4 GRAMS VAGINALLY 3 TIMES A WEEK 2016 active Not Available Not Available Not Avai lable omeprazole magnesium 20 mg tablet,moni yed release Take 20 mg by mouth. 2017 active Not Available Not Available Not Avai lable chlorhexidi ne gluconate 0.12 % mouthwash FILL CAP TO FILL LINE. SWISH FOR 30 SECONDS, THEN SPIT OUT. USE AFTER BREAKFAST AND BEFOE BEDTIME active Not Available Not Available No t Available hylan g-f 20 48 mg/6 mL intra-artic ular syringe 04/09 completed Not Available Not Available Not Available hyaluronate sodium, stabilized 88 mg/4 mL intra-artic ular syringe 05/30 completed Not Available Not Available Not Available hyaluronate sodium, stabilized 60 mg/3 mL intra-artic ular syringe 10/18 completed Not Available Not Available Not Available BinaxNOW COVID-19 Ag Self Test kit [...] Diagnosis SNOMED-CT Code Diagnosis ICD10 Code Diagnosis IMO Codes Diagnosis Note 1523 MD MANNY Elder [address] [place] [id number] 10/10/2022 10:57:40 10/10/2022 11:52:01 Pain of left knee joint [id number] 36022 M25.562 Arthritis of knee 481859 002 M13.869 Health Concerns Section Related Observation [...] Julien Hair MD [address], [place], [address], [place] [facility] 10/10/2022 12:42:33 OBGyn Episode No OBEpisode recorded.
--- OUTSIDE RECORDS SUMMARY | 2025-04-14 15:22 | XMS_ITS | Encounter Summary ---
Author Organization [facility] Address [address] [place] [address] Phone Care Team Providers Care Bagel Maker Name Role Phone Hugo Quintero MD Primary Care Provider + Reason for Referral * Consultation (Within 1 month) - Closed Specialty Diagnoses / Procedures Referred By Bar mccann Referred To Contact Gastroenterology Diagnoses Flatulence, eructation, and gas pain Gastroesophageal reflux disease, esophagitis presence not specified Hiatal hernia Loss of control of rectal sphincter System, Provider Not In, [facility] [address] [address] Nilay Encinas MD Phone: tel: fax: [email or web address] Referral ID Status Reason Start Date Expiration Date Visits Re quested Visits Authorized [id number] Closed 06/20/2017 06/20/2018 1 1 Encounter Details Date Type Department Care Team (Latest Contact Info) Description 06/20/2017 Transcribe Orders [facility] [address] [facility], 5th [place] [address] Hugo Quintero MD [address] [place] [address] Flatulence, eructation, and gas pain (Primary Dx); [...] Associated Diagnoses Order Schedule Ambulatory referral to [facility] (Consult Requests Only) Outpatient Referral Routine [...] sphincter documented in this encounter Care Teams Bagel Maker Relationship Specialty Start Date End Date Hugo Quintero MD [address] [place] [address] PCP - General 01/19/14 documented as of this encounter Additional Source Comments The information contained in this document represents components of the legal health record. It is not the complete legal health record.[facility]
== END 2025-04-14 13:57 | disposition home or self-care (01) ==
LOC: HO.HGI 12:57
PROVIDERS: PCP Internal Medicine; Visit Provider Nurse Practitioner
DX: K59.04 Chronic idiopathic constipation (principal); K29.60 Other gastritis without bleeding; K21.9 Gastro-esophageal reflux disease without esophagitis; K59.9 Functional intestinal disorder, unspecified
CPT/HCPCS: 99213

== ENCOUNTER → 2025-04-14 12:56 | Outpatient (BNVA) | payer MEDICARE, SELFPAY | PROVIDERS: PCP Internal Medicine; Visit Provider Nurse Practitioner | DX: K59.04 Chronic idiopathic constipation (principal); K29.60 Other gastritis without bleeding; K21.9 Gastro-esophageal reflux disease without esophagitis; K59.9 Functional intestinal disorder, unspecified | CPT/HCPCS: 99212 ==

== ENCOUNTER 2025-05-28 13:16 | Outpatient (REF) | payer MEDICARE, SELFPAY ==
[2025-05-28 14:39] LABS: MANUAL DIFF FLAG NO
[2025-05-28 16:00] LABS: Hematocrit 43.7 % (37.0-47.0); Hemoglobin 14.0 g/dl (12.0-16.0); Imm Gran Abs Auto 0.02 X10*3/uL (0.00-0.03); Imm Gran Pct Auto 0.2 % (0.0-0.4); Lymphocytes Absolute Auto 2.1 X10*3/uL (1.2-4.9); Mean Corpuscular HGB Conc 32.0 g/dl (31.0-35.0); Mean Corpuscular Hemoglobin 28.2 pg (27.0-33.0); Mean Corpuscular Volume 88.1 fL (80.0-98.0); NRBC Abs Auto 0.000 X10*3/uL (0.0-0.012); NRBC Pct Auto 0.0 /100WBC (0.0-0.2); Platelet Count 345 X10*3/uL (160-400); Red Blood Count 4.96 X10*6/uL (4.20-5.50); White Blood Count 9.0 X10*3/uL (4.8-10.8)
[2025-05-28 16:41] LABS: Alanine Aminotransferase 25 U/L (0-31); Albumin Level 4.6 g/dL (3.5-5.0); Alkaline Phosphatase 88 U/L (39-117); Anion Gap 11 (12-20); Aspartate Amino Transferase 29 U/L (5-31); Blood Urea Nitrogen 16 mg/dL (9-16); Calcium 9.2 mg/dL (8.4-10.2); Carbon Dioxide 28 mmol/L (22-29); Chloride 104 mmol/L (96-108); Estimated Glomerular Filt Rate > 60; Potassium 3.9 mmol/L (3.3-5.1); Sodium 139 mmol/L (135-145); Total Protein 7.6 g/dL (6.5-8.0)
== END 2025-05-28 13:17 | disposition home or self-care (01) ==
LOC: HO.LAB 13:16
PROVIDERS: PCP Internal Medicine; Visit Provider Nurse Practitioner
DX: K59.04 Chronic idiopathic constipation (principal); K29.60 Other gastritis without bleeding; K21.9 Gastro-esophageal reflux disease without esophagitis; E78.00 Pure hypercholesterolemia, unspecified; R53.83 Other fatigue; K59.9 Functional intestinal disorder, unspecified; Z79.899 Other long term (current) drug therapy
CPT/HCPCS: 36415; 80053; 85025; 99212

== ENCOUNTER 2025-05-28 13:16 | Outpatient (AMB) | payer MEDICARE, SELFPAY ==
--- NOTE | 2025-05-28 13:19 | MHC.OFFVIS ---
Vital Signs 05/28/25 13:21 Height 5 ft 6 in BP 123/65 Blood Pressure Location Rt brachial Position Sitting Pulse 83 Intake Visit Reasons: 6 week FUV. Intake Note: Tammi returns to in office follow up of [facility]. CC: Patient reports that she would like to have her liver check because she's been on medication for so long. She states that she is doing the coconut oil now as suggested by October and it has been helpful. Patient states that she is having trouble sleeping her the insomnia medication prescribed takes too long to work. Quality Assurance Test Program Manager Required: No Accompanied by: Self / Same As Patient Allergies cephalexin (From Keflex) Allergy (Verified 05/28/25 13:35) Rash doxycycline Allergy (Verified 05/28/25 13:35) Unknown levofloxacin (From Levaquin) Allergy (Verified 05/28/25 13:35) Unknown bisacodyl (From Dulcolax (bisacodyl)) Adverse Reaction (Intermediate, Verified 05/28/25 13:35) Nausea HPI HPI 6 week FUV.: Details: Assessment & Plan (1) Chronic idiopathic constipation: Code(s): K59.04 - Chronic idiopathic constipation Category: Medical (2) Erosive gastritis: Code(s): K29.60 - Other gastritis without bleeding Category: Medical (3) GERD (gastroesophageal reflux disease): Code(s): K21.9 - Gastro-esophageal reflux disease without esophagitis Category: Medical (4) Small bowel motility disorder: Code(s): K59.9 - Functional intestinal disorder, unspecified Category: Medical Plan Her current GI regimen consists of metoclopramide 10 mg 4 times a day, magnesium oxide 400 mg twice a day, misoprostol 400 mg twice a day, fiber therapy, MiraLax, and omeprazole. Tammi found that when she tried to increase the misoprostol even if she went very slowly she would have diarrhea. Yet when she goes back to her twice a day dosing, she has constipation. For awhile this was relieved by taking magnesium 400 mg twice a day but now that does not seem to be doing the job as well for her. She says she is consuming quite a lot of fiber says ?I am totally sick of fiber!? She again is somewhat perseverates on the idea that she may need a colostomy bag. I let her know that this is not the case, this is not how we treat constipation. Besides studies have shown that her motility issue was in the small bowel and that is not an organ that we remove because that is what absorbs food. I am trying to ease her fears as she seems somewhat obsessed with this idea. I think she is also overly obsessed with her bowel movements. She shows me a new medication she will be starting, fluoxamine. She wants to know if this will interfere with her constipation management. It absolutely would not as the most common GI side effect would be diarrhea which would be therapeutic for her. Also, I note that this medication is commonly prescribed for obsessive-compulsive disorder which I think is completely appropriate in her case. Return office visit in 6 weeks. TODAYS VISIT [facility] Medical History Osteoarthritis of right knee Osteoarthritis of left knee Urinary frequency Arthritis of both knees Arthritis of left knee Arthritis of right knee Surgical History H/O partial thyroidectomy History of left hip replacement History of surgical removal of meniscus of knee H/O esophagogastroduodenoscopy H/O colonoscopy Social History Alcohol intake: never Patient Tobacco Use Status: Never used Tobacco Current occupational status: retired Review of Systems Const Denies fatigue, Denies fever(s), Denies night sweats, Denies poor appetite and Denies weight loss Eyes Reports requires corrective lenses ENT Reports Normal hearing present, Denies dental pain, Denies dysphagia, Denies hearing loss, Denies mouth pain, Denies odynophagia, Denies throat swelling, Denies tongue swelling and Reports other (Dentition adequate) GI Details: Denies abdominal pain, Denies melena, Denies bloating, Denies hematochezia, Denies constipation, Denies GI cramping, Denies dysphagia, Denies excessive flatus, Denies early satiety, Denies heartburn, Denies diarrhea, Denies nausea, Denies odynophagia, Denies vomiting and Denies hematemesis Skin/Breast Denies pruritus, Denies lesions, Denies rash and Denies jaundice Neuro Reports Normal hearing present and Denies Abnormal speech present Endo Denies fatigue Aller/Immun Denies throat swelling and Denies tongue swelling Physical Exam Vital Signs: Last Vital Signs Pulse 83 05/28/25 13:21 BP 123/65 05/28/25 13:21 Const General: cooperative, no acute distress, well developed and well groomed Nutritional Appearance: well nourished, obese and overweight Orientation/consciousness: oriented to person, oriented to place and oriented to time Limitations: No language barrier, ambulation with cane, ambulation with walker and wheelchair HEENT Head: Yes normocephalic and Yes atraumatic Eyes General: appearance normal, both eyes and all related structures Pupils: Equal, round and reactive pupils present Neck Neck: Yes normal visual inspection and Yes no lymphadenopathy Thyroid: Thyroid normal Resp Effort & Inspection: normal respiratory effort and able to speak in complete sentences Auscultation: clear to auscultation bilaterally Cardio Rate: regular rate Rhythm: regular rhythm Heart sounds: Normal, physiologic split S2 sound present Peripheral pulses: radial pulses present and posterior tibial pulses present GI Inspection: No distended and No Abdominal panniculus present Palpation (GI): Soft to palpation, nontender, no guarding, not rigid, No hepatosplenomegaly present and Hepatosplenomegaly present Percussion: Yes normal to percussion Auscultation: normal bowel sounds Rectal Exam - Female: deferred Skin General skin exam: no rashes or lesions noted, turgor normal, skin not dry, no jaundice, No spider nevi and no striae Rashes: no rashes Nails: normal Neuro General: oriented to person, oriented to place and oriented to time Cranial nerves: Yes Equal, round and reactive pupils present and Yes Normal hearing present Speech: No Abnormal speech present Extrem General: Yes normal to inspection, No clubbing, No cyanosis and No edema Psych Thought process: Normal thought process present and not confabulating Thought content: Normal thought content present Insight: Good insight present (Psych) Judgement: Good judgement present (Psych) Assessment & Plan Assessment & Plan (1) Chronic idiopathic constipation: Code(s): K59.04 - Chronic idiopathic constipation Category: Medical (2) GERD (gastroesophageal reflux disease): Code(s): K21.9 - Gastro-esophageal reflux disease without esophagitis Category: Medical (3) Erosive gastritis: Code(s): K29.60 - Other gastritis without bleeding Category: Medical (4) High cholesterol: Code(s): E78.00 - Pure hypercholesterolemia, unspecified Category: Medical (5) Fatigue: Code(s): R53.83 - Other fatigue Category: Medical Plan - The patient is a 75-year-old female presenting with concerns about insomnia and potential liver function issues. Her insomnia began concomitantly with a change in her medication regimen, particularly after starting gabapentin, which she reports has a delayed effect. She is concerned about drug interactions and wants her liver function evaluated due to the chronic use of multiple medications. She is currently managing polypharmacy, including metoclopramide and venlafaxine, and wishes to ensure her medications do not adversely affect her liver health. - Consider taking gabapentin earlier in the day to help with its efficacy at bedtime. - Proceed to the lab for liver function blood tests to ensure medication is not impacting liver health. - Continue with current medication regimen as discussed. Take metoclopramide, misoprostol, and other medications as scheduled. - Monitor for any changes in sleep or symptoms and report back if any issues. - Follow dietary habits as usual but be mindful of possible fiber impact on medication absorption. - For any urgent concerns or significant changes, contact the clinic for follow-up. Orders: Orders Complete Blood Count Auto Diff 05/28/25 E78.00 - Pure hypercholesterolemia, unspecified, R53.83 - Other fatigue Comprehensive Met. Panel 05/28/25 E78.00 - Pure hypercholesterolemia, unspecified Medications: Changed From polyethylene glycol 3350 17 grams PO BID 100 ea 6RF To polyethylene glycol 3350 (Miralax) 17 grams PO BID 100 ea 6RF Refilled omeprazole 20 mg PO DAILY 30 caps 6RF misoprostol 400 mcg (2 x 200 mcg) PO TID 180 tabs 3RF K59.04 - Chronic idiopathic constipation, K59.9 - Functional intestinal disorder, unspecified metoclopramide HCl 10 mg PO QID 120 tabs 6RF K59.04 - Chronic idiopathic constipation, K59.9 - Functional intestinal disorder, unspecified Coding Level of Care Code Est Pt Level 3 (71752) Diagnoses Chronic idiopathic constipation K59.04 GERD (gastroesophageal reflux disease) K21.9 Erosive gastritis K29.60 High cholesterol E78.00 Fatigue R53.83
[2025-05-28 13:21] VITALS: BP 123/65; PULSE 83
--- OUTSIDE RECORDS SUMMARY | 2025-05-28 15:25 | XMS_ITS | Clinical Summary ---
Author Organization [facility] Address [address] [place] [address] Phone Care Team Providers Care Global Supply Chain Vice President Name Role Phone Hugo Quintero MD Primary [...] file Insurance MEDICARE PART A & B Member Subscriber Plan / Payer (Ef fective 2016-Present) Name:Tammi Hayes Member ID:[id number] Relation to Subscriber:Self Name:Tammi Hayes Subscriber ID:[id number] Payer ID:[id number] Group ID:Not on file Type:Medicare Address: [employer] [address] [place] [phone] [facility] MEDICARE SUPPLEMENT MEDICARE PART A & B [facility] MEDICARE SUPPLEMENT MEDICARE PART A & B MEDICARE SUPPLEMENT MEDICARE PART A & B MEDICARE SUPPLEMENT MEDICARE PART A & B [facility] MEDICARE SUPPLEMENT MEDICARE PART A & B [facility] MEDICARE SUPPLEMENT MEDICARE PART A & B [facility] MEDICARE SUPPLEMENT MEDICARE PART A & B MEDICARE SUPPLEMENT MEDICARE PART A & B MEDICARE SUPPLEMENT Care Teams Global Supply Chain Vice President Relationship Specialty Start Date End Date Hugo Quintero MD [address] [address] PCP - General 01/19/14 Additional Source Comments The information contained in this document represents components of the legal health record. It is not the complete legal health record.[facility]
--- OUTSIDE RECORDS SUMMARY | 2025-05-28 15:25 | XMS_ITS | Encounter Summary ---
Author Organization [facility] Address [address] [place] [address] Phone Care Team Providers Care Occupational Therapy Aide Name Role Phone Hugo Quintero MD Primary Care Provider + Reason for Referral * Consultation (Within 1 month) - Closed Specialty Diagnoses / Procedures Referred By Bar mccann Referred To Contact Gastroenterology Diagnoses Flatulence, eructation, and gas pain Gastroesophageal reflux disease, esophagitis presence not specified Hiatal hernia Loss of control of rectal sphincter System, Provider Not In, [facility] [address] [address] Nilay Encinas MD Phone: tel: fax: mailto:[email or web address] Referral ID Status Reason Start Date Expiration Date Visits Re quested Visits Authorized [id number] Closed 06/20/2017 06/20/2018 1 1 Encounter Details Date Type Department Care Team (Latest Contact Info) Description 06/20/2017 Transcribe Orders [facility] [address] [facility] 5th [place] [address] Hugo Quintero MD [address] [place] [address] Flatulence, eructation, and gas pain (Primary Dx); [...] Associated Diagnoses Order Schedule Ambulatory referral to [facility] (Consult Requests Only) Outpatient Referral Routine [...] sphincter documented in this encounter Care Teams Occupational Therapy Aide Relationship Specialty Start Date End Date Hugo Quintero MD [address] [place] [address] PCP - General 01/19/14 documented as of this encounter Additional Source Comments The information contained in this document represents components of the legal health record. It is not the complete legal health record.[facility]
--- OUTSIDE RECORDS SUMMARY | 2025-05-28 15:25 | XMS_ITS | Clinical Summary ---
Author Organization [facility] Address [address] [place] [address] Care Team Providers Care Radio Machinist Name Role Phone Hugo Quintero MD Primary Care Provider [phone] Allergies Active Allergy Reactions Criticality Noted Date [...] age to complete this topic Care Teams Radio Machinist Relationship Specialty Start Date End Date Hugo Quintero MD PCP - General Internal Medicine 02/11/17
--- OUTSIDE RECORDS SUMMARY | 2025-05-28 15:25 | XMS_ITS | Data Portability ---
Author Organization [facility] Swapna Obrien [facility] [place] Address [address] [place] [address] Care Team Providers Care Windows Infrastructure Engineer Name Role Phone AlmaFRANCIS NEGRETE Primary Care [...] Details Recorded Time Arthritis of right knee joint [id number] 11477 Active 2016 [facility]ritis [facility] knee Not [facility] 5 00:29:46 Pain of left knee joint 59440968743 4107 Active [address], [place], [address] , [place] [facility] [place] 3 11:50:46 Arthritis of knee 349996112 Active [address], [place], [address] , [place] [facility] [place] 3 12:42:22 Problem Notes None recorded. Procedures Surgical History Date Name Laterality Status Provider Name and Address Organization Details Recorded Time Hip Surgery completed Elaine Jim[facility] [facility] 10/10/2022 11:07:06 Knee Surgery completed Elaine Jim[facility]nez [facility] 10/10/2022 11:07:13 Thyroid Surgery completed Elaine Jim[facility]nez [facility] 10/10/2022 11:07:30 Imaging Results None recorded. Procedure Notes None recorded. Medical Equipment None Reported. Allergies Allergen ID Allergen Name Allergen Category Reaction Reaction Severity Criticality Documentation Date Start Date Code Code System Note Provider Name and Address Organization Details Recorded Time 248506 cephalexi n medicatio n Not available Not available Not available 04/13/20252016 2231 RxNorm Not Available [facility] 5 01:30:13 152183 mold extract medicatio n Not available Not available Not available 04/13/20252016 58165 8 RxNorm Not Available [facility] 5 01:30:14 726 amoxicill in medicatio n Not available Not available Not available 10/10/2022 723 RxNorm Elaineblayne [place], [place] [facility] 3 11:06:23 Medications Name Sig Start [...] Status: Active; Source: SYDNEY CHU M.D.; Date: 3 2012 active Not Available Not Available Not [...] Codes Diagnosis Note 1523 MD MANNY Elder [address] [place] [phone] 10/10/2022 10:57:40 10/10/2022 11:52:01 Pain of left knee joint [id number] [address] M25.562 Arthritis of knee 795541 002 M13.869 Health Concerns Section Related Observation [...] Julien Hair MD [address], [place], [address], [place] [facility] [place], [facility] 10/10/2022 12:42:33 OBGyn Episode No OBEpisode recorded.
== END 2025-05-28 17:00 | disposition home or self-care (01) ==
LOC: HO.HGI 13:17
PROVIDERS: PCP Internal Medicine; Visit Provider Nurse Practitioner
DX: K59.04 Chronic idiopathic constipation (principal); K21.9 Gastro-esophageal reflux disease without esophagitis; K29.60 Other gastritis without bleeding; E78.00 Pure hypercholesterolemia, unspecified; R53.83 Other fatigue
CPT/HCPCS: 99213

== ENCOUNTER 2025-07-08 13:44 | Outpatient (AMB) | payer MEDICARE, SELFPAY ==
--- NOTE | 2025-07-08 13:48 | A.OFFVIS_ITS ---
Intake Visit Reasons: Bilateral knee pain Intake Note: Tammi is a 75 year old female who presents with complaints of bilateral knee pains. She describes her pains as sharp in nature. She has had cortisone injections in the past which gave her no relief. She has also had Durolane viscosupplementation injections which gave her fairly good relief. She has tried Tylenol, anti-inflammatory medicines and physical therapy exercises which gave her minimal relief. At this point her bilateral knee pains are interfering with her activities of daily living and her ability to sleep well through the night. The patient wishes to hold off on total knee replacement surgery if at all possible. Allergies cephalexin (From Keflex) Allergy (Verified 07/08/25 13:49) Rash doxycycline Allergy (Verified 07/08/25 13:49) Unknown levofloxacin (From Levaquin) Allergy (Verified 07/08/25 13:49) Unknown bisacodyl (From Dulcolax (bisacodyl)) Adverse Reaction (Intermediate, Verified 07/08/25 13:49) Nausea Medication List - Last Reconciled 07/08/25 by Julien Hair MD clonazepam 1 mg PO DAILY PRN eszopiclone (Lunesta) 2 mg PO BEDTIME metoclopramide HCl 10 mg PO QID misoprostol 400 mcg (2 x 200 mcg) PO TID omeprazole 20 mg PO DAILY polyethylene glycol 3350 (Miralax) 17 grams PO BID venlafaxine ER 150 mg PO DAILY [facility] Medical History Osteoarthritis of right knee Osteoarthritis of left knee Urinary frequency Arthritis of both knees Arthritis of left knee Arthritis of right knee Surgical History H/O partial thyroidectomy History of left hip replacement History of surgical removal of meniscus of knee H/O esophagogastroduodenoscopy H/O colonoscopy Social History Alcohol intake: never Patient Tobacco Use Status: Never used Tobacco Current occupational status: retired Physical Exam Extrem Other: Bilateral knee examination shows minimal effusions, palpable crepitus with range of motion, pain with range of motion, no instability Results Reviewed Results Reviewed: X-rays of the patient's bilateral knees taken previously show joint space narrowing, subchondral sclerosis, no acute bony abnormalities Assessment & Plan Assessment & Plan (1) Pain in both knees: Code(s): M25.561 - Pain in right knee; M25.562 - Pain in left knee (2) Osteoarthritis of left knee: Code(s): M17.12 - Unilateral primary osteoarthritis, left knee Category: Medical (3) Osteoarthritis of right knee: Code(s): M17.11 - Unilateral primary osteoarthritis, right knee Category: Medical Plan Ms. Clifford presents with bilateral knee pains due to osteoarthritis. I had a lengthy discussion with the patient regarding the treatment options. She wishes to hold off on surgery if at all possible. I agree with this plan. I will see if the patient's insurance company will cover another Durolane viscosupplementation injection for both of her knees. I will see her back once the injections are approved. Feel free to call me at any time should questions regarding her orthopedic management arise. I spent 20 minutes in reviewing the patient's records and imaging studies, seeing the patient and documenting in the medical record. Coding Level of Care Code Est Pt Level 3 (61811) Add On Problem Visit Only Diagnoses Pain in both knees M25.561; M25.562 Osteoarthritis of left knee M17.12 Osteoarthritis of right knee M17.11
--- OUTSIDE RECORDS SUMMARY | 2025-07-08 17:56 | XMS_ITS | Encounter Summary ---
Author Organization [facility] Address [address] [place] [address] Phone Care Team Providers Care Change Of Address Clerk Name Role Phone Hugo Quintero MD Primary Care Provider + Reason for Referral * Consultation (Within 1 month) - Closed Specialty Diagnoses / Procedures Referred By Bar mccann Referred To Contact Gastroenterology Diagnoses Flatulence, eructation, and gas pain Gastroesophageal reflux disease, esophagitis presence not specified Hiatal hernia Loss of control of rectal sphincter System, Provider Not In, [facility] [address] [address] Nilay Encinas MD Phone: tel: fax: [email or web address] Referral ID Status Reason Start Date Expiration Date Visits Re quested Visits Authorized [id number] Closed 06/20/2017 06/20/2018 1 1 Encounter Details Date Type Department Care Team (Latest Contact Info) Description 06/20/2017 Transcribe Orders [facility] [address] [place] [address] Hugo Quintero MD [address] [place] [phone] Flatulence, eructation, and gas pain (Primary Dx); [...] Associated Diagnoses Order Schedule Ambulatory referral to [facility] (Consult Requests Only) Outpatient Referral Routine [...] sphincter documented in this encounter Care Teams Change Of Address Clerk Relationship Specialty Start Date End Date Hugo Quintero MD [address] [place] [address] PCP - General 01/19/14 documented as of this encounter Additional Source Comments The information contained in this document represents components of the legal health record. It is not the complete legal health record.[facility]
--- OUTSIDE RECORDS SUMMARY | 2025-07-08 17:56 | XMS_ITS | Data Portability ---
Author Organization [facility] Address [address] [place] [address] Care Team Providers Care Medical Director/Head Team Physician Name Role Phone AlmaFRANCIS NEGRETE Primary Care [...] Recorded Time Arthritis of right knee joint 94181667330 49700 Active 2016 Arthritis of right knee Not Available [facility] 5 00:29:46 Pain of left knee joint 53559781890 4107 Active [address], [place], [address] , [place] [facility] 3 11:50:46 Arthritis of knee 532814869 Active [address], [place], [address] , [place] [facility] 3 12:42:22 Problem Notes None recorded. Procedures Surgical History Date Name Laterality Status Provider Name and Address Organization Details Recorded Time Hip Surgery completed Elaine Jim[place]nez [place] [facility] 10/10/2022 11:07:06 Knee Surgery completed Elaine Jim[place] [facility] 10/10/2022 11:07:13 Thyroid Surgery completed Elaine Jim[place]nez [facility] 10/10/2022 11:07:30 Imaging Results None recorded. Procedure Notes None recorded. Medical Equipment None Reported. Allergies Allergen ID Allergen Name Allergen Category Reaction Reaction Severity Criticality Documentation Date Start Date Code Code System Note Provider Name and Address Organization Details Recorded Time 953227 cephalexi n medicatio n Not available Not available Not available 04/13/20252016 2231 RxNorm Not Available [facility] 5 01:30:13 638535 mold extract medicatio n Not available Not available Not available 04/13/20252016 61738 8 RxNorm Not Available [facility] 5 01:30:14 726 amoxicill in medicatio n Not available Not available Not available 10/10/2022 723 RxNorm Elaineblayne v[place], [place] [facility] 3 11:06:23 Medications Name Sig [...] Codes Diagnosis Note 1523 MD MANNY Elder [address] [place] [id number] 10/10/2022 10:57:40 10/10/2022 11:52:01 Pain of left knee joint [id number] 05117 M25.562 Arthritis of knee 414770 002 M13.869 Health Concerns Section Related Observation [...] Julien Hair MD [address], [place], [address], [place] [facility], [facility] 10/10/2022 12:42:33 OBGyn Episode No OBEpisode recorded.
--- OUTSIDE RECORDS SUMMARY | 2025-07-08 17:56 | XMS_ITS | Clinical Summary ---
Author Organization [facility] Address [address] [place] [phone] Phone Care Team Providers Care Fermenter Helper Name Role Phone Hugo Quintero MD Primary [...] file Insurance MEDICARE PART A & B [facility] MEDICARE SUPPLEMENT MEDICARE PART A & B [facility] MEDICARE SUPPLEMENT MEDICARE PART A & B MEDICARE SUPPLEMENT MEDICARE PART A & B MEDICARE SUPPLEMENT MEDICARE PART A & B [facility] MEDICARE SUPPLEMENT MEDICARE PART A & B [facility] MEDICARE SUPPLEMENT MEDICARE PART A & B [facility] MEDICARE SUPPLEMENT MEDICARE PART A & B MEDICARE SUPPLEMENT MEDICARE PART A & B MEDICARE SUPPLEMENT Care Teams Fermenter Helper Relationship Specialty Start Date End Date Hugo Quintero MD [address] [address] PCP - General 01/19/14 Additional Source Comments The information contained in this document represents components of the legal health record. It is not the complete legal health record.[facility]
--- OUTSIDE RECORDS SUMMARY | 2025-07-08 17:56 | XMS_ITS | Clinical Summary ---
Author Organization [facility] Prior to 12/19/24 Address [address] [place] [address] Care Team Providers Care Lacquer Mixer Name Role Phone Hugo Quintero MD Primary Care Provider [phone] Allergies Active Allergy Reactions Criticality Noted Date [...] Osteoporosis Screening (DEXA Scan) 01/08/2017 COVID-19 Vaccine (2024-2 6 season) 2025 10/19/2020, 09/28/2020 Influenza Vaccine [...] age to complete this topic Care Teams Lacquer Mixer Relationship Specialty Start Date End Date Hugo Quintero MD PCP - General Internal Medicine 02/11/17
== END 2025-07-08 14:44 | disposition home or self-care (01) ==
LOC: HO.HOS 13:45
PROVIDERS: PCP Internal Medicine; Visit Provider Orthopaedic Surgery
DX: M25.561 Pain in right knee (principal); M25.562 Pain in left knee; M17.0 Bilateral primary osteoarthritis of knee
CPT/HCPCS: 99213; G2211

== ENCOUNTER → 2025-07-08 13:44 | Outpatient (BNVA) | payer MEDICARE, SELFPAY | PROVIDERS: PCP Internal Medicine; Visit Provider Orthopaedic Surgery | DX: M25.561 Pain in right knee (principal); M25.562 Pain in left knee; M17.0 Bilateral primary osteoarthritis of knee | CPT/HCPCS: 99212 ==